=== PATIENT | male | born 1940 | race Caucasian/White ===

== ENCOUNTER 2016-08-05 07:33 | Inpatient (IN) ==
[2016-08-05] MEDS ORDERED: LACTATED RINGERS 1,000 ML IV ONE (07:45)
--- NOTE | 2016-08-05 07:53 | Emergency Department Note ---
Fall HPI - General Chief Complaint: Fall Stated Complaint: Fall, weakness Time Seen by Provider: 08/05/16 07:48 Source: patient, EMS Mode of arrival: EMS - History of Present Illness HPI Narrative: Patient got up to go the bathroom this morning said his legs gave out he fell down. He has no injury other than some bruises to his left hand and abrasion to his right knee. Did not hit his head. He says yesterday he is able to mow his yard. Complaint: fall Onset (ago): minute(s) Fall From: standing Fall Witnessed: no Place Fall Occurred: home Loss of Consciousness: none Prolonged Down Time?: no - Related Data Home Medications Medication Instructions Recorded Confirmed atenolol 50 mg tablet 50 mg PO BID tab 02/03/16 06/06/16 pravastatin 40 mg tablet 40 mg PO QHS 02/03/16 06/06/16 Allopurinol [Zylopriim] 300 mg PO BID tab 03/02/16 06/06/16 aspirin 325 mg tablet 325 mg PO QDAY 03/30/16 06/06/16 meloxicam 15 mg tablet 15 mg PO QDAY 03/30/16 06/06/16 triamcinolone acetonide 55 mcg 1 spray INTRANASAL .COMPLEX 03/30/16 06/06/16 nasal spray aerosol Previous Rx's Medication Instructions Recorded diphenhydramine 25 mg capsule 25 mg PO Q4H PRN #90 cap 03/02/16 gabapentin 300 mg capsule 300 mg PO BID #60 cap 06/06/16 olmesartan 40 mg tablet 40 mg PO QDAY #90 tab 06/06/16 CPAP Mask #1 each 07/14/16 Allergies Allergy/AdvReac Type Severity Reaction Status Date / Time lisinopril Allergy Unknown Swelling Verified 08/05/16 07:38 of face Review of Systems Constitutional: Denies: fever Eyes: Denies: eye pain ENT ED: Denies: ear pain, throat pain Cardiovascular: Denies: chest pain, palpitations Respiratory: Denies: cough, dyspnea Gastrointestinal: Denies: abdominal pain, nausea, vomiting Genitourinary: Denies: urgency Musculoskeletal: Denies: back pain Integumentary: Denies: rash Neurological: Reports: weakness (Generalized). Denies: headache Fall PMH - Past Medical History [facility] Narrative: Medical History (Last Updated 06/06/16 @ 15:16 by Olaf An DO) Morbid obesity (Chronic) GERD (gastroesophageal reflux disease) (Chronic) CAD (coronary artery disease) (Chronic) Heart attack (Chronic ~2001) Jaundice (Chronic ~1954) Hyperlipidemia (Chronic ~1999) Hypertension, essential (Chronic ~1997) History of tobacco use (Acute) Past Surgical History (Last Updated 03/30/16 @ 16:28 by Rosemary Diamond) H/O colonoscopy (Chronic ~2002) History of coronary artery bypass graft (Chronic) Hx of appendectomy (Chronic ~1949) Family History Family/Other Cancer Father Cancer HTN (hypertension) Family/Other Cancer Mother HTN (hypertension) Physical Exam - General Limitations: no limitations General appearance: alert, in no apparent distress - Head Head exam: atraumatic - Eye Eye exam: Present: normal appearance - ENT ENT exam: normal exam - Neck Neck exam: Present: normal inspection - Chest Chest inspection: Present: normal inspection - Respiratory Respiratory exam: Present: normal lung sounds bilaterally - Cardiovascular Cardiovascular exam: Present: regular rate, normal rhythm, normal heart sounds - Abdominal Exam Abdominal exam: Present: soft. Absent: distention, tenderness - Neurological Exam Neurological exam: Present: alert - Psychiatric Psychiatric exam: Present: normal affect, normal mood - Skin Skin exam: Present: warm, dry, intact Course Vital Signs Temperature 98.2 F 08/05/16 07:34 Pulse Rate 64 08/05/16 07:34 Respiratory Rate 33 H 08/05/16 07:34 Blood Pressure 107/53 08/05/16 07:34 Pulse Oximetry (%) 97 08/05/16 07:34 Temperature 98.2 F 08/05/16 07:34 Pulse Rate 64 08/05/16 07:34 Respiratory Rate 33 H 08/05/16 07:34 Blood Pressure 107/53 08/05/16 07:34 Pulse Oximetry (%) 97 08/05/16 07:34 Disposition Referrals: Olaf An DO [Primary Care Provider] -
--- NOTE | 2016-08-05 08:27 | XRay Report ---
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 Mediastinum and pulmonary vessels are normal. There is minor bibasilar atelectasis IMPRESSION: Moderate stable cardiomegaly Interpreted and Authenticated by: Olaf Montez 08/05/16
[2016-08-05 08:39] LABS: Basophils # (Auto) 0 K/mcL (0.0-0.3); Basophils % (Auto) 0 % (0.0-2.0); Eosinophils # (Auto) 0 K/mcL (0.0-0.7); Eosinophils % (Auto) 0 % (0.0-7.0); Granulocytes % (Auto) 91.7 % (38.0-78.0); Lymphocytes # (Auto) 0.6 K/mcL (1.5-4.8); Lymphocytes % (Auto) 2.4 % (15.5-49.0); Mean Cell Volume 97.8 fL (80.0-100.0); Mean Corpuscular HGB Conc 33.5 g/dL (31.0-36.0); Mean Corpuscular Hemoglobin 32.8 pg (26.0-34.0); Monocytes # (Auto) 1.4 K/mcL (0.1-0.9); Monocytes % (Auto) 5.9 % (1.0-12.0); Platelet Count 196 K/mcL (140-440); RBC 4.55 M/mcL (4.50-5.90); Red Cell Distribution Width 12.6 % (11.5-14.5)
[2016-08-05 08:55] LABS: ALT/SGPT 26 U/l (0-40); Albumin 3.9 gm/dL (3.2-5.2); Albumin/Globulin Ratio 1.1 (1.0-2.3); Alkaline Phosphatase 76 U/L (39-117); Blood Urea Nitrogen 30 mg/dl (8-23)
[2016-08-05] MEDS ORDERED: 0.9 % SODIUM CHLORIDE 1,000 ML IV ONE ×2 (09:33→10:31)
[2016-08-05] MEDS ORDERED: CLINDAMYCIN 600 MG in DEXTROSE 5% IN WATER 50 ML IV ONE (10:31)
--- NOTE | 2016-08-05 10:31 | Emergency Department Note ---
Fall HPI - General Chief Complaint: Fall Stated Complaint: Fall, weakness Time Seen by Provider: 08/05/16 07:48 Source: patient, EMS Mode of arrival: EMS Limitations: no limitations - History of Present Illness HPI Narrative: Received patient in checkout from Dr. brambila. Additional history below He will do long yesterday with a self-propelled mower and slept well. Approximately 4 AM he tried to get up and fell on the floor he was weak and could not walk and could not get up. He stayed on the floor, multiple times trying to get up for about 2 hours before help arrived and they brought him in. He has abrasions to both knees as well as a stubbed right big toe and black and blue right second toe. He denies fever chills nausea vomiting trouble breathing previous kidney problems Place Fall Occurred: home - Related Data Home Medications Medication Instructions Recorded Confirmed atenolol 50 mg tablet 50 mg PO BID tab 02/03/16 08/05/16 pravastatin 40 mg tablet 40 mg PO QHS 02/03/16 08/05/16 Allopurinol [Zylopriim] 300 mg PO BID tab 03/02/16 08/05/16 aspirin 325 mg tablet 325 mg PO QDAY 03/30/16 08/05/16 meloxicam 15 mg tablet 15 mg PO QDAY 03/30/16 08/05/16 triamcinolone acetonide 55 mcg 1 spray INTRANASAL .COMPLEX 03/30/16 08/05/16 nasal spray aerosol Previous Rx's Medication Instructions Recorded diphenhydramine 25 mg capsule 25 mg PO Q4H PRN #90 cap 03/02/16 gabapentin 300 mg capsule 300 mg PO BID #60 cap 06/06/16 olmesartan 40 mg tablet 40 mg PO QDAY #90 tab 06/06/16 CPAP Mask #1 each 07/14/16 Allergies Allergy/AdvReac Type Severity Reaction Status Date / Time lisinopril Allergy Unknown Swelling Verified 08/05/16 07:38 of face Review of Systems All systems ED: reviewed and negative except as stated. Constitutional: Denies: fever Eyes: Denies: eye pain ENT ED: Denies: ear pain, throat pain Cardiovascular: Denies: chest pain, palpitations Respiratory: Denies: cough, dyspnea Gastrointestinal: Denies: abdominal pain, nausea, vomiting Genitourinary: Denies: urgency Musculoskeletal: Denies: back pain Integumentary: Denies: rash Neurological: Reports: weakness (Generalized). Denies: headache Fall PMH - Past Medical History Medical history: Reports: coronary artery disease, GERD, hyperlipidemia, hypertension. Denies: diabetes - Social History smoking status: Former smoker Physical Exam Obese male no acute distress. Talking normally able to answer questions appropriately. Normocephalic atraumatic. Afebrile. Lungs are clear to auscultation bilaterally without wheezes rales rhonchi or respiratory distress. I examined bilateral lower extremities and he has got a 10 cm area of erythema bilateral knees along with a 2 x 1.5 cm abrasion on the right knee, and a 3 x 1.5 cm abrasion on the left knee. His right lower leg is also erythematous appears to be mild cellulitis. Bilateral ankles edematous +1 on the left +2 on the right. Right great toe has ecchymoses underneath the toenail. Right second toe is ecchymotic and erythematous actually down to the PIP joint neither toes-heart very tender. - General Limitations: no limitations General appearance: alert, in no apparent distress Course Vital Signs Temperature 98.2 F 08/05/16 07:34 Pulse Rate 64 08/05/16 07:34 Respiratory Rate 33 H 08/05/16 07:34 Blood Pressure 107/53 08/05/16 07:34 Pulse Oximetry (%) 97 08/05/16 07:34 Temperature 98.0 F 08/05/16 11:12 Pulse Rate 65 08/05/16 12:59 Respiratory Rate 27 H 08/05/16 12:59 Blood Pressure 143/63 08/05/16 12:33 Pulse Oximetry (%) 100 08/05/16 12:59 Fall - Lab Data Result diagrams: 08/05/16 08:05 08/05/16 08:05 Lab Results 08/05/16 08/05/16 08/05/16 Range/Units 08:05 08:05 08:05 WBC 23.0 H (4.5-11.0) K/mcL RBC 4.55 (4.50-5.90) M/mcL Hgb 14.9 (13.5-16.5) g/dL Hct 44.5 (41.0-55.0) % MCV 97.8 (80.0-100.0) fL MCH 32.8 (26.0-34.0) pg MCHC 33.5 (31.0-36.0) g/dL RDW 12.6 (11.5-14.5) % Plt Count 196 (140-440) K/mcL MPV 9.3 (7.4-10.4) fL Gran % 91.7 H (38.0-78.0) % Lymph % (Auto) 2.4 L (15.5-49.0) % Morrill % (Auto) 5.9 (1.0-12.0) % Eos % (Auto) 0 (0.0-7.0) % Baso % (Auto) 0 (0.0-2.0) % Gran # 21.1 H (1.8-8.0) K/mcL Lymph # (Auto) 0.6 L (1.5-4.8) K/mcL Morrill # (Auto) 1.4 H (0.1-0.9) K/mcL Eos # (Auto) 0 (0.0-0.7) K/mcL Baso # (Auto) 0 (0.0-0.3) K/mcL Differential Comment (()) VBG Lactic Acid (0.5-2.2) mmol/L Sodium 140 (133-145) mmol/L Potassium 4.0 (3.3-5.1) mmol/L Chloride 101 (96-108) mmol/L Carbon Dioxide 22 (22-30) mmol/L Anion Gap 17.0 H (8-16) BUN 30 H (8-23) mg/dl Creatinine 2.0 H (0.7-1.2) mg/dl GFR Calculation 32 Glucose 130 H (70-105) mg/dL Calcium 9.4 (8.6-10.4) mg/dl Total Bilirubin 1.8 H (0.0-1.0) mg/dL AST 59 H (0-37) U/l ALT 26 (0-40) U/l Alkaline Phosphatase 76 (39-117) U/L Total Creatine Kinase (24-195) IU/L Troponin T 0.02 (0-0.03) ng/ml Total Protein 7.5 (5.9-8.4) gm/dL Albumin 3.9 (3.2-5.2) gm/dL Globulin 3.6 (2.2-3.7) gm/dL Albumin/Globulin Ratio 1.1 (1.0-2.3) Urine Color Urine Appearance Urine pH (5.0-9.0) Ur Specific [place] (1.000-1.035) Urine Protein (NEG) mg/dL Urine Glucose (UA) (NEG) mg/dL Urine Ketones (NEG) mg/dL Urine Occult Blood (<0.03) mg/dL Urine Nitrate (NEG) Urine Bilirubin (NEG) mg/dL Urine Urobilinogen (NEG) mg/dL Ur Leukocyte Esterase (NEG) /uL Urine RBC (0-1) /hpf Urine WBC (0-4) /hpf Ur Squamous Epith Cells (0-4) /hpf Amorphous Crystals (0) /hpf Urine Bacteria (0) /hpf Hyaline Casts (0-2) /lpf Granular Casts (0) /lpf Urine Mucus (0) /hpf Ur Culture Indicated? 08/05/16 08/05/16 08/05/16 Range/Units 08:05 08:59 10:24 WBC (4.5-11.0) K/mcL RBC (4.50-5.90) M/mcL Hgb (13.5-16.5) g/dL Hct (41.0-55.0) % MCV (80.0-100.0) fL MCH (26.0-34.0) pg MCHC (31.0-36.0) g/dL RDW (11.5-14.5) % Plt Count (140-440) K/mcL MPV (7.4-10.4) fL Gran % (38.0-78.0) % Lymph % (Auto) (15.5-49.0) % Morrill % (Auto) (1.0-12.0) % Eos % (Auto) (0.0-7.0) % Baso % (Auto) (0.0-2.0) % Gran # (1.8-8.0) K/mcL Lymph # (Auto) (1.5-4.8) K/mcL [place]rill # (Auto) (0.1-0.9) K/mcL Eos # (Auto) (0.0-0.7) K/mcL Baso # (Auto) (0.0-0.3) K/mcL Differential Comment (()) VBG Lactic Acid 5.0 H* (0.5-2.2) mmol/L Sodium (133-145) mmol/L Potassium (3.3-5.1) mmol/L Chloride (96-108) mmol/L Carbon Dioxide (22-30) mmol/L Anion Gap (8-16) BUN (8-23) mg/dl Creatinine (0.7-1.2) mg/dl GFR Calculation Glucose (70-105) mg/dL Calcium (8.6-10.4) mg/dl Total Bilirubin (0.0-1.0) mg/dL AST (0-37) U/l ALT (0-40) U/l Alkaline Phosphatase (39-117) U/L Total Creatine Kinase 3603 H (24-195) IU/L Troponin T (0-0.03) ng/ml Total Protein (5.9-8.4) gm/dL Albumin (3.2-5.2) gm/dL Globulin (2.2-3.7) gm/dL Albumin/Globulin Ratio (1.0-2.3) Urine Color Yellow Urine Appearance Hazy Urine pH 5.0 (5.0-9.0) Ur Specific [place] 1.017 (1.000-1.035) Urine Protein 30 A (NEG) mg/dL Urine Glucose (UA) Negative (NEG) mg/dL Urine Ketones Neg (NEG) mg/dL Urine Occult Blood >=1.0 A (<0.03) mg/dL Urine Nitrate Neg (NEG) Urine Bilirubin Neg (NEG) mg/dL Urine Urobilinogen Neg (NEG) mg/dL Ur Leukocyte Esterase 25 A (NEG) /uL Urine RBC 1 (0-1) /hpf Urine WBC 6 H (0-4) /hpf Ur Squamous Epith Cells 0 (0-4) /hpf Amorphous Crystals Mod A (0) /hpf Urine Bacteria 0 (0) /hpf Hyaline Casts 22 H (0-2) /lpf Granular Casts 9 H (0) /lpf Urine Mucus Few (0) /hpf Ur Culture Indicated? Yes - Radiology Data Radiology results reviewed: Yes I reviewed the patient's radiology results. Chest x-ray shows cardiomegaly but no acute findings. Bladder scan shows 48 mL After 1.5 L of IVF - EKG Data EKG attestation: Yes I reviewed and interpreted this EKG. EKG results narrative: EKG shows first-degree AV block with a rate of 65 otherwise normal sinus rhythm with 1 PVC. Right bundle branch block and left posterior fascicular block also noted Disposition Clinical Impression: Cellulitis and abscess of right leg, Abrasion, Acute kidney injury, Dehydration Rhabdomyolysis Qualifiers: Rhabdomyolysis type: non-traumatic Qualified Code(s): M62.82 - Rhabdomyolysis Summary: Acute kidney injury likely from rhabdomyolysis-pravastatin likely contributes. Additionally has cellulitis right lower leg. Started clindamycin after cultures Discussed with Dr. Padilla hospitalist who agreed the patient needs to be admitted. Will be admitted to the ICU Disposition: Xfer As Inpt ([facility]) Condition: Critical Referrals: Olaf An DO [Primary Care Provider] -
[2016-08-05 11:14] LABS: Appearance,Urine HAZY; Bacteria,Urine 0 /hpf (0); Bilirubin,Urine NEG (NEG); Color,Urine YELLOW; Glucose,Urine (UA) NEGATIVE (NEG); Leukocyte Esterase,Urine 25 /uL (NEG); Mucus,Urine FEW /hpf (0); Nitrate,Urine NEG (NEG); Protein,Urine 30 mg/dL (NEG); Specific Gravity,Urine 1.017 (1.000-1.035); Urine Amorphous Crystals MOD /hpf (0); Urine Blood >=1.0 mg/dL (<0.03); Urine Granular Cast 9 /lpf (0); Urine Hyaline Cast 22 /lpf (0-2); Urine RBC 1 /hpf (0-1); Urine Squamous Epithelial Cell 0 /hpf (0-4); Urine WBC 6 /hpf (0-4); Urobilinogen,Urine NEG (NEG)
[2016-08-05 13:13] LABS: Creatine Kinase 3603 IU/L (24-195)
[2016-08-05] MEDS ORDERED: IPRATROPIUM/ALBUTEROL 3 ML AMPUL.NEB NEB ONE (14:07)
--- NOTE | 2016-08-05 14:55 | XRay Report ---
CLINICAL INFORMATION: Wheezing COMPARISON: 08/05/2016 FINDINGS: Mild cardiomegaly is unchanged. Mediastinum and pulmonary vessels are normal. Is minor bibasilar atelectasis. No effusions. Bones soft tissues normal IMPRESSION: Moderate cardiomegaly - stable. No acute disease Interpreted and Authenticated by: Olaf Montez 08/05/16
[2016-08-05] MEDS ORDERED: ONDANSETRON 4 MG/2 ML VIAL IV PRN (14:56)
[2016-08-05] MEDS ORDERED: NALOXONE HCL 0.4 MG/ML VIAL IV PRN (14:56)
[2016-08-05] MEDS ORDERED: VANCOMYCIN PER PHARMACY IV SCH (14:56)
[2016-08-05] MEDS ORDERED: HYDROmorphone 2 MG/ML SYRINGE IV PRN (14:56)
[2016-08-05] MEDS ORDERED: MAGNESIUM HYDROXIDE 30 ML ORAL.SUSP PO PRN (14:56)
[2016-08-05] MEDS ORDERED: SENNOSIDES 1 TABLET PO PRN (14:56)
[2016-08-05] MEDS ORDERED: FLEETS ADULT ENEMA PR PRN (14:56)
[2016-08-05] MEDS: 0.9 % SODIUM CHLORIDE 1,000 ML IV SCH (15:19)
--- NOTE | 2016-08-05 16:37 | Internal Med History&Physical ---
Medical - H&P: HPI Patient information: Note initiated : 08/05/16 at 4:27 pm Service Date, if different from initiated Date: [] Patient: Sharif David a 75 y/o M admitted on 08/05/16 for Fall, Weakness. Chief Complaint: [] History of present illness: Mr. David is a 75 year old M with h/o cad, neuropathy, presented to the ER after weakness in both his lower extremities since AM The patient reports he was ok yesterday, had mowed his lawn (self propelled) and may have not drank enough fluids, he was ok in the evening when he went to bed. He had one episode of chills and rigors at night. He woke up early in night and noted that he was weak and dizzy, when he tried to go to the bathroom. He woke up again around 4 and noted he did not have much strength in his legs, very tired and fatigued, unable to get up from the bathroom floor, he crawled his way to the bedroom, and scraped and injured his lower legs, he did not get better after few hrs and aft er the insistence of his grandson he called 911. The patient in the ER was noted to have elevated wbc count, high lactate, and renal failure, possible redness in the right leg, ua positive for blood and CK Rasied to 3600, admitted to the hospital for same. The patient denies any loss of bowel bladder function, no loss of sensation, only weakness bilaterally, able to move both legs. no trauma to the back. he is usually short of breath when he does more than usual activity at baseline , but denies any h/o COPD. Review of systems: CONSTITUTIONAL: No weight loss. Present subjective sensation fo fever, chills and rigors HEENT: Eyes: No visual loss, blurred vision, double vision or yellow sclerae. Ears, Nose, Throat: No hearing loss, sneezing, congestion, runny nose or sore throat. SKIN: No rash or itching. CARDIOVASCULAR: No chest pain, chest pressure or chest discomfort. No palpitations or edema. RESPIRATORY: present shortness of breath. GASTROINTESTINAL: No nausea, vomiting or diarrhea or constipation. No abdominal pain or blood in stools No Hannah. GENITOURINARY: Denies Burning on urination. Blood in urine, or foul smelling urine NEUROLOGICAL: No headache, dizziness, syncope, paralysis, tremors, numbness or tingling in the extremities. No change in bowel or bladder control. MUSCULOSKELETAL: No muscle, back pain, joint pain or stiffness. Weakness in both lower legs. HEMATOLOGIC: No bleeding or bruising. No enlarged nodes PSYCHIATRIC: No depression or anxiety. ENDOCRINOLOGIC: No reports of sweating, cold or heat intolerance. No polyuria or polydipsia. ALLERGIES: No hives, eczema or rhinitis. Skin: No rash, no jaundice, cyanosis or pallor. Medical - H&P: [facility] Medical history: Medical History (Last Updated 08/05/16 @ 11:28 by Hua Kramer MD) Morbid obesity (Chronic) GERD (gastroesophageal reflux disease) (Chronic) CAD (coronary artery disease) (Chronic) Heart attack (Chronic ~2001) Jaundice (Chronic ~1954) Hyperlipidemia (Chronic ~1999) Hypertension, essential (Chronic ~1997) History of tobacco use (Acute) Surgical history: Past Surgical History (Last Updated 03/30/16 @ 16:28 by Rosemary Diamond) H/O colonoscopy (Chronic ~2002) History of coronary artery bypass graft (Chronic) Hx of appendectomy (Chronic ~1949) Family history: reviewed and not pertinent Medical - H&P: Meds Home Medications Medication Instructions Recorded Confirmed Type atenolol 50 mg tablet 50 mg PO BID tab 02/03/16 08/05/16 History pravastatin 40 mg tablet 40 mg PO QHS 02/03/16 08/05/16 History Allopurinol [Zylopriim] 300 mg PO BID tab 03/02/16 08/05/16 History diphenhydramine 25 mg capsule 25 mg PO Q4H PRN #90 cap 03/02/16 08/05/16 Rx aspirin 325 mg tablet 325 mg PO QDAY 03/30/16 08/05/16 History meloxicam 15 mg tablet 15 mg PO QDAY 03/30/16 08/05/16 History triamcinolone acetonide 55 mcg 1 spray INTRANASAL .COMPLEX 03/30/16 08/05/16 History nasal spray aerosol gabapentin 300 mg capsule 300 mg PO BID #60 cap 06/06/16 08/05/16 Rx olmesartan 40 mg tablet 40 mg PO QDAY #90 tab 06/06/16 08/05/16 Rx CPAP Mask #1 each 07/14/16 Rx Allergies Allergy/AdvReac Type Severity Reaction Status Date / Time lisinopril Allergy Severe Swelling Verified 08/05/16 14:59 of face Medical - H&P: Exam - Constitutional Vitals: Temp Pulse Resp BP Pulse Ox 99.2 F H 75 30 H 149/105 95 08/05/16 15:00 08/05/16 15:00 08/05/16 15:00 08/05/16 15:00 08/05/16 15:00 Exam: GENERAL: The patient is a well-developed, well-nourished in mild distress. Is alert and oriented x3. at bedside VITAL SIGNS: Reviewed and as noted elsewhere. HEENT: Head is normocephalic and atraumatic. Extraocular muscles are intact. Pupils are equal, round, and reactive to light. Nares appeared normal. Mouth appears any without lesions. Mucous membranes are dry NECK: Normal to inspection, Supple, No lymphadenopathy or thyromegaly. LUNGS: Air entry equal on both sides, no wheezing, crackles or rhonchi noted. No accessory muscles of respiration, tachypenic breathing noted. HEART: Regular rate and rhythm normal, S1 and S2 heard, no Gallop, S3 or Rub Noted, No Gross murmur heard. ABDOMEN: Soft, nontender, and nondistended. Positive bowel sounds. No hepatosplenomegaly was noted. EXTREMITIES: No cyanosis, clubbing, rash, lesions or edema. NEUROLOGIC: Cranial nerves II through XII are grossly intact. Motor and Sensory System Grossly Intact, Stacia lower extremities, absent relfex antke and + knees (h /o neuropathy) , present sensation equal on both sides, present strength 4/5 in both legs, at hip, knee and ankle joints. SPine,: No spinal tenderness Right leg edema> left, erythematous and warm to touch, extending nearly the whole leg, area marked with pen. poor nails and dry skin noted. Stacia knee abrasions, skin exposed, right 2nd toe contusion. PSYCHIATRIC: Normal affect, Normal Mood. Appropriate Behavior. SKIN: No ulceration or wounds noted, No jaundice, No rash noted. Medical - H&P: Reslt - Labs CBC & Chem 7: 08/05/16 08:05 08/05/16 08:05 - EKG Data EKG comments: 08/05/16 16:41 sinus right axis right bundle block Medical - H&P: A/P - Narrative A/P Narrative: a/p Severe sepsis: Treat as per protocol, bp stable, IV fluds aggressive for now, repeat lactic acid. Treat underlying condition. check procalcitonin. blood cultuers drawn. Right lower leg cellulitis: Treat with IV vanco and zosyn for now, deescalate after cultures. HTN: BP stable, no hypotension, resume home meds and monitor. CAD: NO cp, chest tightness ,resume home meds. EKG does not show signs of acute ischemia Acute Kidney Injury: creat 2.0, pt making urine, place caruso, IV fluids Try to keep good urine output. , Acute Rhabdomyolysis" : due to activity and lying on floor for few hrs, IV fluids for now, monitor urine output. Stacia knee abrasions, right toe contusion: stacia bacitracin ointment, wound care DVT hep sq Diet Cardiac Full code Monitor in PCU status due to tachypena, renal failure, rhabdomyoliyss, sepsis with elevated lactic acid. Medical - H&P: Qual - VTE Deep Vein Thrombosis/Pulmonary Embolism Present on Admission: No Social History - Social History marital status: - Tobacco smoking status: Former smoker - Alcohol alcohol intake frequency: a few times a week - Substance use substance use type: does not use
[2016-08-05 16:39] LABS: Basophils # (Auto) 0 K/mcL (0.0-0.3); Basophils % (Auto) 0 % (0.0-2.0); Eosinophils # (Auto) 0 K/mcL (0.0-0.7); Eosinophils % (Auto) 0.1 % (0.0-7.0); Granulocytes % (Auto) 92.2 % (38.0-78.0); Lymphocytes # (Auto) 0.6 K/mcL (1.5-4.8); Lymphocytes % (Auto) 3.4 % (15.5-49.0); Mean Cell Volume 96.9 fL (80.0-100.0); Mean Corpuscular HGB Conc 34.3 g/dL (31.0-36.0); Mean Corpuscular Hemoglobin 33.2 pg (26.0-34.0); Monocytes # (Auto) 0.7 K/mcL (0.1-0.9); Monocytes % (Auto) 4.3 % (1.0-12.0); Platelet Count 172 K/mcL (140-440); RBC 4.23 M/mcL (4.50-5.90); Red Cell Distribution Width 12.7 % (11.5-14.5)
[2016-08-05] MEDS: PIPERACILLIN SODIUM/TAZOBACTAM 3.375 GM in DEXTROSE 5% IN WATER 50 ML IV SCH ×2 (16:49→22:15)
[2016-08-05 16:57] LABS: ALT/SGPT 51 U/l (0-40); Albumin 3.4 gm/dL (3.2-5.2); Alkaline Phosphatase 66 U/L (39-117); Bilirubin,Direct 0.3 mg/dL (0.0-0.3); Blood Urea Nitrogen 33 mg/dl (8-23); Gamma Glutamyl Transpeptidase 60 U/L (8-61); Uric Acid 13.6 mg/dL (2.5-8.0)
[2016-08-05] MEDS: VANCOMYCIN 1,500 MG in 0.9 % SODIUM CHLORIDE 500 ML IV SCH (17:07)
[2016-08-05] MEDS: ACETAMINOPHEN 325 MG TABLET PO PRN ×2 (17:49→20:43)
[2016-08-05] MEDS: IPRATROPIUM/ALBUTEROL 3 ML AMPUL.NEB NEB SCH ×3 (18:30→22:45)
[2016-08-05] MEDS: ALLOPURINOL 300 MG TABLET PO SCH ×2 (20:43→20:59)
[2016-08-05] MEDS: GABAPENTIN 300 MG CAPSULE PO SCH (20:45)
[2016-08-05] MEDS ORDERED: HEPARIN 5,000 UNIT/ML VIAL SQ SCH (21:00)
[2016-08-05] MEDS ORDERED: ATENOLOL 50 MG TABLET PO SCH (21:00)
[2016-08-05] MEDS: 0.9 % SODIUM CHLORIDE 10 ML SYRINGE IV SCH (22:15)
[2016-08-06] MEDS ORDERED: 0.9 % SODIUM CHLORIDE 1,000 ML IV ONE (00:09)
[2016-08-06] MEDS: ACETAMINOPHEN 325 MG TABLET PO PRN ×4 (00:59→19:54)
[2016-08-06] MEDS: 0.9 % SODIUM CHLORIDE 1,000 ML IV SCH ×7 (01:02→22:44)
[2016-08-06] MEDS: IPRATROPIUM/ALBUTEROL 3 ML AMPUL.NEB NEB SCH ×5 (02:47→19:16)
[2016-08-06] MEDS: PIPERACILLIN SODIUM/TAZOBACTAM 3.375 GM in DEXTROSE 5% IN WATER 50 ML IV SCH ×3 (05:47→22:43)
[2016-08-06] MEDS: 0.9 % SODIUM CHLORIDE 10 ML SYRINGE IV SCH ×3 (05:48→22:43)
[2016-08-06 07:38] LABS: Basophils # (Auto) 0.1 K/mcL (0.0-0.3); Basophils % (Auto) 0.5 % (0.0-2.0); Eosinophils # (Auto) 0.1 K/mcL (0.0-0.7); Eosinophils % (Auto) 0.6 % (0.0-7.0); Granulocytes % (Auto) 88.2 % (38.0-78.0); Lymphocytes % (Auto) 6.7 % (15.5-49.0); Mean Cell Volume 95.6 fL (80.0-100.0); Mean Corpuscular HGB Conc 33.9 g/dL (31.0-36.0); Mean Corpuscular Hemoglobin 32.4 pg (26.0-34.0); Monocytes # (Auto) 0.6 K/mcL (0.1-0.9); Platelet Count 107 K/mcL (140-440); RBC 4.31 M/mcL (4.50-5.90); Red Cell Distribution Width 12.8 % (11.5-14.5)
[2016-08-06 07:57] LABS: ALT/SGPT 64 U/l (0-40); Albumin 3.1 gm/dL (3.2-5.2); Alkaline Phosphatase 61 U/L (39-117); Bilirubin,Direct 0.5 mg/dL (0.0-0.3); Blood Urea Nitrogen 34 mg/dl (8-23); Gamma Glutamyl Transpeptidase 51 U/L (8-61); Magnesium 1.9 mg/dL (1.6-2.5); Uric Acid 10.9 mg/dL (2.5-8.0)
[2016-08-06 08:28] LABS: Creatine Kinase 14595 IU/L (24-195)
--- NOTE | 2016-08-06 09:24 | XRay Report ---
CLINICAL INFORMATION: Ankle edema COMPARISON: None. FINDINGS: There is very heavy ossification of the plantar tendon insertion on the calcaneus with calcific also seen in the plantar fascia. Minor calcification is seen Achilles tendon insertion. Tiny remote avulsion fracture off the tip of the lateral malleolus noted. Ankle mortise and talocalcaneal joints are unremarkable. There is marked diffuse soft tissue swelling in the ankle region IMPRESSION: Marked diffuse soft tissue swelling. Interpreted and Authenticated by: Olaf Montez 08/06/16
[2016-08-06] MEDS: GABAPENTIN 300 MG CAPSULE PO SCH ×2 (09:29→21:48)
[2016-08-06] MEDS: ASPIRIN 325 MG ENTERIC COATED TABLET PO SCH (09:29)
[2016-08-06] MEDS: ALLOPURINOL 300 MG TABLET PO SCH ×3 (09:30→21:48)
[2016-08-06] MEDS ORDERED: FUROSEMIDE 20 MG/2 ML VIAL IV ONE ×2 (09:46→22:06)
--- NOTE | 2016-08-06 12:42 | Internal Med Progress Note ---
Medical - PN: Subj Patient information: Note initiated : 08/06/16 at 12:36 pm Service Date, if different from initiated Date: [] Patient: Sharif David a 75 y/o M admitted on 08/05/16 for Fall, Weakness. Chief Complaint: [] Interval history: Mr. David is a 75 year old M with h/o cad, neuropathy, presented to the ER after weakness in both his lower extremities since AM The patient reports he was ok yesterday, had mowed his lawn (self propelled) and may have not drank enough fluids, he was ok in the evening when he went to bed. He had one episode of chills and rigors at night. He woke up early in night and noted that he was weak and dizzy, when he tried to go to the bathroom. He woke up again around 4 and noted he did not have much strength in his legs, very tired and fatigued, unable to get up from the bathroom floor, he crawled his way to the bedroom, and scraped and injured his lower legs, he did not get better after few hrs and aft er the insistence of his grandson he called 911. The patient in the ER was noted to have elevated wbc count, high lactate, and renal failure, possible redness in the right leg, ua positive for blood and CK Rasied to 3600, admitted to the hospital for same. The patient denies any loss of bowel bladder function, no loss of sensation, only weakness bilaterally, able to move both legs. no trauma to the back. he is usually short of breath when he does more than usual activity at baseline , but denies any h/o COPD. 08/06: Patient seen examined, no acute overnight events, he feels much better, he had temp of 103, overnight, his labs reviewed, lactic acid is now normal, but his CK climbed to 13K, Patient cellutlitis has remained stable. Will get x ray ankle. Pertinent ROS: Denies headache, dizziness Denies chest pain, palpitations Denies cough or shortness of breath Denies abdominal pain, nausea or vomiting. - Constitutional Vitals: Vital Signs Temp Pulse Resp BP Pulse Ox 101.8 F H 71 33 H 129/47 95 08/06/16 12:13 08/06/16 12:13 08/06/16 12:13 08/06/16 12:02 08/06/16 12:13 Period Temp Pulse Resp BP Sys/Romero Pulse Ox Last 24 Hr 98.0 F-103.5 F 47-88 16-36 89-156/33-117 88-100 Intake and Output 08/05/16 08/06/16 08/06/16 21:59 05:59 13:59 Intake Total 900 / 900 2410 / 2410 1273 / 1273 Output Total 391 / 391 475 / 475 1475 / 1475 Balance 509 / 509 1934 / 1934 Weight 284 lb 9.6 oz 284 lb 9.6 oz Patient Weight 08/07/16 05:59 Weight 284 lb 9.6 oz Intake & Output: Intake & Output 08/05/16 08/06/16 08/06/16 21:59 05:59 13:59 Intake Total 900 / 900 2410 / 2410 1273 / 1273 Output Total 391 / 391 475 / 475 1475 / 1475 Balance 509 / 509 1934 / 1934 Weight 284 lb 9.6 oz 284 lb 9.6 oz Intake: IV 550 / 550 2049 / 0 493 / 493 Sodium Chloride 0.9% , 1999 / 1999 443 / 443 000 ml @ 150 mls/hr IV . Q6H40M [facility] Rx#:[id number] Zosyn 3.375 gm In 50 / 50 50 / 50 50 / 50 Dextrose 5% in Water 50 ml @ 100 mls/hr IV Q8H [facility] Rx#:[id number] Vancomycin 1,500 mg In 500 / 500 Sodium Chloride 0.9% 500 ml @ 333.3 mls/hr IV Q24H [facility] Rx#:[id number] Oral 350 / 350 360 / 360 780 / 780 Output: Urine Catheter Amount 170 / 170 475 / 475 1475 / 1475 Void Amount 220 / 220 # of times incontinent of urine Other: Meal Breakfast Percent of Meal Consumed 100% # Bowel Movements 1 1 1 Exam: Constitutional; Afebrile, cooperative, alert, not in distress. Eyes- No icterus, , No periorbital swelling Ears- Ext ear normal, hearing normal to conversation. Neck- Midline trachea, supple Respiratory system: Air Entry equal on both sides, No crackles or wheezing, no rhonchi. CVS- Rate rhythm regular, S1,S2 heard, no gallop, no rub. Abdomen- Soft nontender abdomen, no organomegaly, no tenderness, no guarding or rigidity, SHIFT MGR- AOOx3, moving all extremities, no gross focal deficit noted. Medical - PN: Obj Da - Labs CBC & Chem 7: 08/06/16 06:23 08/06/16 06:23 Labs: Abnormal Lab Results 08/06/16 08/06/16 08/05/16 06:23 06:23 22:00 WBC 15.6 H RBC 4.31 L Plt Count 107 L Gran % 88.2 H Lymph % (Auto) 6.7 L Gran # 13.8 H Lymph # (Auto) 1.0 L VBG Lactic Acid 2.9 H Carbon Dioxide 20 L BUN 34 H Creatinine 1.9 H Glucose Uric Acid 10.9 H Calcium 7.9 L Phosphorus Total Bilirubin 2.2 H Direct Bilirubin 0.5 H AST 241 H ALT 64 H Lactate Dehydrogenase 323 H Total Creatine Kinase 75250 H Albumin 3.1 L 08/05/16 08/05/16 08/05/16 16:08 16:08 16:08 WBC 17.4 H RBC 4.23 L Plt Count Gran % 92.2 H Lymph % (Auto) 3.4 L Gran # 16.0 H Lymph # (Auto) 0.6 L VBG Lactic Acid 3.3 H Carbon Dioxide BUN 33 H Creatinine 2.1 H Glucose 130 H Uric Acid 13.6 H Calcium Phosphorus 2.1 L Total Bilirubin 2.2 H Direct Bilirubin AST 205 H ALT 51 H Lactate Dehydrogenase 340 H Total Creatine Kinase Albumin Meds: Medications Acetaminophen (Tylenol) 650 mg PO Q4-6HP PRN PRN Reason: PAIN/FEVER > 101 Last Admin: 08/06/16 09:29 Dose: 650 mg Albuterol/Ipratropium (Duoneb) 3 ml NEB Q4HRT [facility] Last Admin: 08/06/16 11:35 Dose: 3 ml Allopurinol (Zylopriim) 300 mg PO BID [facility] Last Admin: 08/06/16 09:43 Dose: Not Given Aspirin (Ecotrin) 325 mg PO DAILY [facility] Last Admin: 08/06/16 09:29 Dose: 325 mg Gabapentin (Neurontin) 300 mg PO BID [facility] Last Admin: 08/06/16 09:29 Dose: 300 mg Hydromorphone HCl (Dilaudid) 0.5 mg IV Q2HP PRN PRN Reason: Pain Piperacillin Sod/Tazobactam (Sod 3.375 gm/ Dextrose) 50 mls @ 100 mls/hr IV Q8H [facility] Last Infusion: 08/06/16 12:15 Dose: Infused Vancomycin HCl 1,500 mg/ (Sodium Chloride) 500 mls @ 333.3 mls/hr IV Q24H [facility] Last Infusion: 08/05/16 19:23 Dose: Infused Sodium Chloride (Sodium Chloride 0.9%) 1,000 mls @ 150 mls/hr IV .Q6H40M [facility] Stop: 08/08/16 00:30 Last Admin: 08/06/16 12:28 Dose: 150 mls/hr Magnesium Hydroxide (Milk Of Magnesia) 30 ml PO DAILYP PRN PRN Reason: Constipation Naloxone HCl (Narcan) 0.1 mg IV Q2MIN PRN PRN Reason: Opiate Reversal Ondansetron HCl (Zofran) 4 mg IV Q4-6HP PRN PRN Reason: Nausea And Vomiting Senna (Senokot) 1 tab PO HSP PRN PRN Reason: Constipation Sodium Biphosphate/Sodium Phosphate (Fleets Adult) 1 dose WI Q3-4DAYS PRN PRN Reason: Constipation Sodium Chloride (Saline Flush) 10 ml IV Q8 [facility] Last Admin: 08/06/16 05:48 Dose: 10 ml Vancomycin HCl (Vancomycin Per Pharmacy) 1 order IV [facility] [place] Medical - PN: A/P - Time Spent With Patient Total time spent is greater than 50% in coordination of care (as documented) at patient's floor/unit and/or counseling patient: - Narrative A/P Narrative: a/p Severe sepsis: improving, bp stable, lactic acid now back to normal. Right lower leg cellulitis: Treat with IV vanco and zosyn for now, cultures pending, clinically stable, X ray ankle shows soft tissue edema, no gas under surface. HTN: BP stable, no hypotension this am ( was hypotensive in AM) hold atenolol . CAD: NO cp, chest tightness ,resume home meds. EKG does not show signs of acute ischemia Acute Kidney Injury: creat is 1.9, due to sepsis and rhabdomyolysis. IV fluids for now, consider renal sonography is does not improve. Acute Rhabdomyolysis" : due to activity and lying on floor for few hrs, worsening, CK 13K now, Increase IV fluids to 150cc /hr, titrate to keep urine output > 100cc per hour, 20mg of lasix given this AM with good response. Ruben knee abrasions, right toe contusion: ruben bacitracin ointment, wound care DVT hep sq Diet Cardiac Full code Medical - PN: Qual - VTE Deep Vein Thrombosis/Pulmonary Embolism Present on Admission: No
[2016-08-06] MEDS: VANCOMYCIN 1,500 MG in 0.9 % SODIUM CHLORIDE 500 ML IV SCH (16:53)
[2016-08-06] MEDS ORDERED: ALBUTEROL SULFATE 2.5 MG/3 ML NEBULIZER NEB PRN (22:07)
[2016-08-07] MEDS: PIPERACILLIN SODIUM/TAZOBACTAM 3.375 GM in DEXTROSE 5% IN WATER 50 ML IV SCH ×3 (05:28→21:33)
[2016-08-07] MEDS: 0.9 % SODIUM CHLORIDE 10 ML SYRINGE IV SCH ×3 (05:29→21:33)
[2016-08-07 05:32] LABS: Basophils # (Auto) 0 K/mcL (0.0-0.3); Basophils % (Auto) 0.1 % (0.0-2.0); Eosinophils # (Auto) 0 K/mcL (0.0-0.7); Eosinophils % (Auto) 0.4 % (0.0-7.0); Granulocytes % (Auto) 82.9 % (38.0-78.0); Lymphocytes # (Auto) 1.4 K/mcL (1.5-4.8); Lymphocytes % (Auto) 11.6 % (15.5-49.0); Mean Cell Volume 97.9 fL (80.0-100.0); Mean Corpuscular HGB Conc 34.3 g/dL (31.0-36.0); Mean Corpuscular Hemoglobin 33.6 pg (26.0-34.0); Monocytes # (Auto) 0.6 K/mcL (0.1-0.9); Platelet Count 146 K/mcL (140-440); RBC 3.97 M/mcL (4.50-5.90); Red Cell Distribution Width 13.2 % (11.5-14.5)
[2016-08-07 05:53] LABS: ALT/SGPT 77 U/l (0-40); Albumin 2.8 gm/dL (3.2-5.2); Albumin/Globulin Ratio 0.7 (1.0-2.3); Alkaline Phosphatase 75 U/L (39-117); Bilirubin,Direct < 0.2 mg/dL (0.0-0.3); Blood Urea Nitrogen 25 mg/dl (8-23); Gamma Glutamyl Transpeptidase 52 U/L (8-61)
[2016-08-07 06:04] LABS: Creatine Kinase 10374 IU/L (24-195)
[2016-08-07] MEDS: CLOPIDOGREL 75 MG TABLET PO SCH (08:27)
[2016-08-07] MEDS: ASPIRIN 325 MG ENTERIC COATED TABLET PO SCH (08:27)
[2016-08-07] MEDS: GABAPENTIN 300 MG CAPSULE PO SCH ×2 (08:27→20:42)
[2016-08-07] MEDS: METOPROLOL TARTRATE 25 MG TABLET PO SCH ×2 (08:27→20:42)
[2016-08-07] MEDS: ALLOPURINOL 300 MG TABLET PO SCH (08:28)
--- NOTE | 2016-08-07 09:42 | Cat Scan Report ---
CLINICAL INFORMATION: Dyspnea and fever COMPARISON: None TECHNIQUE: 2.5 mm axial slices were obtained from the lung apices through the bases without intravenous contrast. Sagittal, coronal and axial reformatted images were processed and reviewed at bone, lung and soft tissue windows. 7 mm axial MIP images were also reconstructed. FINDINGS: Pulmonary parenchymal windows show small patchy left lower lobe infiltrate and small left pleural effusion. There is minor atelectasis in the right base with a small right pleural effusion. Moderate fat is seen within the left major fissure which is insignificant. Mediastinal windows show small pericardial effusion and mild cardiomegaly. Very heavy calcific atherosclerotic plaque seen in all of the coronary arteries. This would increase the probability for hemodynamically significant stenosis. The noncontrasted pulmonary arteries and thoracic aorta are normal in contour and caliber. There is no adenopathy in the mediastinal, hilar or axillary regions. The esophagus is normal. Thyroid is unremarkable. Images through the upper abdomen show a 19 mm faintly calcified stone within the gallbladder neck. The gallbladder is otherwise unremarkable - no evidence of inflammation. A 3.5 cm low-attenuation lesion in the anterior cortex of the mid left kidney is new from an 10/07/[address] A 18 mm satellite lesion is seen in the anterior perinephric fat. Bone windows show syndesmophytes bridging most of the thoracic vertebral bodies which is suggestive, although not diagnostic, of ankylosing spondylitis. There is moderate degenerative disc disease throughout the thoracic spine IMPRESSION: 1. Small patchy left lower lobe infiltrate with small left pleural effusion. Small right pleural effusion. 2. Extremely heavy calcific atherosclerotic plaque in all coronary arteries. This increases the probability minimally significant stenosis. Consider cardiology referral for stress testing. Small pericardial effusion 3. 19 mm solitary stone in the gallbladder neck. 4. 3.5 cm low-attenuation lesion in the anterior cortex mid left kidney with an 18 mm satellite lesion in the anterior perinephric fat. Renal cell carcinoma is possible. Suggest: CT IVP. If the patient cannot tolerate IV contrast, abdominal MRI could be performed instead Interpreted and Authenticated by: Olaf Montez 08/07/16
[2016-08-07] MEDS: LEVOFLOXACIN 500 MG/100 ML BAG IV SCH (09:52)
[2016-08-07] MEDS: 0.9 % SODIUM CHLORIDE 1,000 ML IV SCH ×2 (09:52→20:43)
[2016-08-07] MEDS ORDERED: METOPROLOL TARTRATE 25 MG TABLET PO ONE (11:05)
--- NOTE | 2016-08-07 11:13 | Internal Med Progress Note ---
Medical - PN: Subj Patient information: Note initiated : 08/07/16 at 11:13 am Service Date, if different from initiated Date: [] Patient: Sharif David 75 y/o M admitted on 08/05/16 for Fall, Weakness. Chief Complaint: [] Interval history: August 05, 2016: History of present illness: Mr. David is a 75 year old M with h/o cad, neuropathy, presented to the ER after weakness in both his lower extremities since AM The patient reports he was ok yesterday, had mowed his lawn (self propelled) and may have not drank enough fluids, he was ok in the evening when he went to bed. He had one episode of chills and rigors at night. He woke up early in night and noted that he was weak and dizzy, when he tried to go to the bathroom. He woke up again around 4 and noted he did not have much strength in his legs, very tired and fatigued, unable to get up from the bathroom floor, he crawled his way to the bedroom, and scraped and injured his lower legs, he did not get better after few hrs and aft er the insistence of his grandson he called 911. The patient in the ER was noted to have elevated wbc count, high lactate, and renal failure, possible redness in the right leg, ua positive for blood and CK Rasied to 3600, admitted to the hospital for same. The patient denies any loss of bowel bladder function, no loss of sensation, only weakness bilaterally, able to move both legs. no trauma to the back. he is usually short of breath when he does more than usual activity at baseline , but denies any h/o COPD. 08/06: Patient seen examined, no acute overnight events, he feels much better, he had temp of 103, overnight, his labs reviewed, lactic acid is now normal, but his CK climbed to 13K, Patient cellutlitis has remained stable. Will get x ray ankle. august 07: this patient was admitted after a fall, and reported fever and chills. He presented with acute rhabdomyolysis leukocytosis, lactic acidosis and apparent right lower extremity cellulitis, as well as bilateral knee abrasions. he has continued to have fever spikes, with a temperature as high as 104 last night. yesterday evening, he had an episode of diarrhea, and got out of bed to get cleaned up. His nurse noted he became extremely short of breath and tachypnea That time. The patient reported that he always has mild dyspnea with exertion, but that this was worse than usual. He denied any associated chest pain or palpitations, but his nurse noted that he had much more ectopy on his monitoring engineer, with frequent PVCs and occasional bigeminy, and some change and waveforms. Follow-up EKG showed sinus rhythm with frequent ectopy. Follow-up testing did show that he bumped his troponin to 0.06 and BNP was elevated at 1456. Blood gas showed moderate hypoxemia but no CO2 retention and normal pH. Chest CT was ordered last night, without contrast due to renal function, and shows a small left lower lobe infiltrate, and small bilateral pleural effusions , heavy coronary, as well as a small solitary stone in the gallbladder neck, and a 3.5 cm mass in the left kidney, worrisome for renal cell carcinoma. This morning, the patient says he is feeling better. He says shortness of breath is much improved. He denies any chest pain or palpitations. He has been having some bright red blood per rectum, and in addition to loose stools and notes he does have hemorrhoids. He does not feel feverish this morning, and denies chills. He denies chest pain or palpitations, abdominal pain, nausea or vomiting. Black catheter remains in place. He feels his right lower extremity is less red, less tender, less swollen today. - Constitutional Vitals: Vital Signs Temp Pulse Resp BP Pulse Ox 101.2 F H 50 L 22 130/67 96 08/07/16 08:32 08/07/16 02:00 08/07/16 08:02 08/07/16 08:02 08/07/16 08:32 Period Temp Pulse Resp BP Sys/Romero Pulse Ox Last 24 Hr 99.7 F-104.0 F 50-108 18-39 97-202/45-188 86-100 Intake and Output 08/06/16 08/07/16 08/07/16 21:59 05:59 13:59 Intake Total 1520 / 1520 600 / 600 1530 / 1530 Output Total 905 / 905 1465 / 1465 220 / 220 Balance 615 / 615 -865 / -865 1310 / 1310 Weight 293 lb 1.6 oz Intake & Output: Intake & Output 08/06/16 08/07/16 08/07/16 21:59 05:59 13:59 Intake Total 1520 / 1520 600 / 600 1530 / 1530 Output Total 905 / 905 1465 / 1465 220 / 220 Balance 615 / 615 -865 / -865 1310 / 1310 Weight 293 lb 1.6 oz Intake: IV 1000 / 1000 600 / 600 1050 / 1050 Sodium Chloride 0.9% 1, 1000 / 1000 1000 / 1000 000 ml @ 100 mls/hr IV . Q10H TOMMY Rx#:[id number] Zosyn 3.375 gm In 100 / 100 50 / 50 Dextrose 5% in Water 50 ml @ 100 mls/hr IV Q8H TOMMY Rx#:[id number] Vancomycin 1,500 mg In 500 / 500 Sodium Chloride 0.9% 500 ml @ 333.3 mls/hr IV Q24H TOMMY Rx#:[id number] Oral 520 / 520 480 / 480 Output: Urine Catheter Amount 905 / 905 1465 / 1465 220 / 220 Other: Meal Dinner Percent of Meal Consumed 100% # Bowel Movements 1 2 # of times incontinent of 1 Bowels on exam, he is sitting up on the side of his bed He is in good spirits. He is not in any distress. Neck shows no obvious JVD. Cardiac exam shows a fairly regular rhythm, but with frequent ectopy. No murmurs,rubs or gallops are noted Lungs: Breath sounds are generally decreased, but otherwise appear clear to auscultation, without rales, rhonchi, wheezes. Abdomen: Is markedly obese, but soft and nontender, with normal bowel sounds. Extremities: Lower extremities are moderately swollen,with the right side much worse than the left. His right leg is red from the ankle to about the knee, with swelling and tenderness but does appear to be receding from the inked margins. Neurologic:Neuro exam is grossly nonfocal. Patient is alert and oriented, and cooperative. Skin: Other than the right leg cellulitis, he has bilateral knee Scabs, which appear to be healing. Medical - PN: Obj Da - Labs CBC & Chem 7: 08/07/16 04:08 08/07/16 04:08 Labs: Abnormal Lab Results 08/07/16 08/07/16 08/07/16 04:08 04:08 03:08 WBC 11.9 H RBC 3.97 L Hgb 13.3 L Hct 38.9 L Plt Count Gran % 82.9 H Lymph % (Auto) 11.6 L Gran # 9.9 H Lymph # (Auto) 1.4 L VBG Lactic Acid Carbon Dioxide 21 L BUN 25 H Creatinine 1.7 H Glucose Uric Acid Calcium 8.2 L Phosphorus Total Bilirubin 1.3 H Direct Bilirubin AST 210 H ALT 77 H Lactate Dehydrogenase 481 H Total Creatine Kinase 99687 H Troponin T 0.10 H* NT-Pro-B Natriuret Pep Albumin 2.8 L Globulin 3.9 H Albumin/Globulin Ratio 0.7 L Triglycerides 223 H 08/06/16 08/06/16 08/06/16 20:58 20:58 06:23 WBC RBC Hgb Hct Plt Count Gran % Lymph % (Auto) Gran # Lymph # (Auto) VBG Lactic Acid Carbon Dioxide 20 L BUN 34 H Creatinine 1.9 H Glucose Uric Acid 10.9 H Calcium 7.9 L Phosphorus Total Bilirubin 2.2 H Direct Bilirubin 0.5 H AST 241 H ALT 64 H Lactate Dehydrogenase 323 H Total Creatine Kinase 34839 H Troponin T 0.06 H* NT-Pro-B Natriuret Pep 1456.0 H Albumin 3.1 L Globulin Albumin/Globulin Ratio Triglycerides 08/06/16 08/05/16 08/05/16 06:23 22:00 16:08 WBC 15.6 H RBC 4.31 L Hgb Hct Plt Count 107 L Gran % 88.2 H Lymph % (Auto) 6.7 L Gran # 13.8 H Lymph # (Auto) 1.0 L VBG Lactic Acid 2.9 H 3.3 H Carbon Dioxide BUN Creatinine Glucose Uric Acid Calcium Phosphorus Total Bilirubin Direct Bilirubin AST ALT Lactate Dehydrogenase Total Creatine Kinase Troponin T NT-Pro-B Natriuret Pep Albumin Globulin Albumin/Globulin Ratio Triglycerides 08/05/16 08/05/16 16:08 16:08 WBC 17.4 H RBC 4.23 L Hgb Hct Plt Count Gran % 92.2 H Lymph % (Auto) 3.4 L Gran # 16.0 H Lymph # (Auto) 0.6 L VBG Lactic Acid Carbon Dioxide BUN 33 H Creatinine 2.1 H Glucose 130 H Uric Acid 13.6 H Calcium Phosphorus 2.1 L Total Bilirubin 2.2 H Direct Bilirubin AST 205 H ALT 51 H Lactate Dehydrogenase 340 H Total Creatine Kinase Troponin T NT-Pro-B Natriuret Pep Albumin Globulin Albumin/Globulin Ratio Triglycerides august 07: echocardiogram was done this morning. Preliminary report shows mild four- chamber enlargement. Left ventricular ejection fraction 50%. -eKG from this morning shows normal sinus rhythm at a rate of 80, with frequent PVCs. August 06: -C. difficile screen is negative. -ABG on a 4.5 L O2 mask: PH 7.44 PCO2 27, PO2 70, bicarbonate 18, O2 saturation 94% -CT of the chest: Shows a small patchy left lower lobe infiltrate with small bilateral pleural effusions. Extremely heavy atherosclerotic calcification of all coronary arteries. Small pericardial effusion. 19 mm solitary stone in the gallbladder neck. 3.5 cm low attenuation lesion in the mid left kidney with an 18 mm satellite lesion in the perinephric fat. August 05: -Urine culture is negative. -blood cultures are negative so far. August 04: MRSA screen is negative. Meds: Medications Acetaminophen (Tylenol) 650 mg PO Q4-6HP PRN PRN Reason: PAIN/FEVER > 101 Last Admin: 08/06/16 19:54 Dose: 650 mg Albuterol Sulfate (Ventolin) 2.5 mg NEB Q2HP PRN PRN Reason: Shortness Of Breath Allopurinol (Zylopriim) 300 mg PO DAILY [facility] Last Admin: 08/07/16 08:28 Dose: Not Given Aspirin (Ecotrin) 325 mg PO DAILY [facility] Last Admin: 08/07/16 08:27 Dose: 325 mg Clopidogrel Bisulfate (Plavix) 75 mg PO DAILY [facility] Last Admin: 08/07/16 08:27 Dose: 75 mg Gabapentin (Neurontin) 300 mg PO BID [facility] Last Admin: 08/07/16 08:27 Dose: 300 mg Hydromorphone HCl (Dilaudid) 0.5 mg IV Q2HP PRN PRN Reason: Pain Piperacillin Sod/Tazobactam (Sod 3.375 gm/ Dextrose) 50 mls @ 100 mls/hr IV Q8H [facility] Last Infusion: 08/07/16 08:17 Dose: Infused Vancomycin HCl 1,500 mg/ (Sodium Chloride) 500 mls @ 333.3 mls/hr IV Q24H [facility] Last Infusion: 08/06/16 22:39 Dose: Infused Sodium Chloride (Sodium Chloride 0.9%) 1,000 mls @ 100 mls/hr IV .Q10H [facility] Stop: 08/09/16 10:07 Last Admin: 08/07/16 09:52 Dose: 100 mls/hr Levofloxacin (Levaquin) 500 mg in 100 mls @ 100 mls/hr IV Q24H [facility] Last Admin: 08/07/16 09:52 Dose: 100 mls/hr Magnesium Hydroxide (Milk Of Magnesia) 30 ml PO DAILYP PRN PRN Reason: Constipation Metoprolol Tartrate (Lopressor) 25 mg PO BID [facility] Last Admin: 08/07/16 08:27 Dose: 25 mg Naloxone HCl (Narcan) 0.1 mg IV Q2MIN PRN PRN Reason: Opiate Reversal Ondansetron HCl (Zofran) 4 mg IV Q4-6HP PRN PRN Reason: Nausea And Vomiting Senna (Senokot) 1 tab PO HSP PRN PRN Reason: Constipation Sodium Chloride (Saline Flush) 10 ml IV Q8 [facility] Last Admin: 08/07/16 05:29 Dose: 10 ml Vancomycin HCl (Vancomycin Per Pharmacy) 1 order IV UD [facility] Medical - PN: A/P - Time Spent With Patient Total time spent is greater than 50% in coordination of care (as documented) at patient's floor/unit and/or counseling patient: Greater than 35 minutes - Narrative A/P Narrative: #1.Severe sepsis/infectious disease. - improving, bp stable, lactic acid now back to normal. however, the patient continues to spike fevers. he has an apparent right lower extremity cellulitis, and possible early pneumonia. It is unclear however, why he continues to spike fevers. he continues on Zosyn and vancomycin. blood cultures are negative so far. he does not appear to have a UTI. He does have cholelithiasis,but CT did not suggest cholecystitis. I have added Levaquin for better gram-negative coverage today. -He does have a renal mass,which could be malignant. This could also be a source of fever. He has a small pericardial effusion, so we will need to keep that in mind as a possible source. -Right lower leg cellulitis: X ray ankle shows soft tissue edema, no gas under surface. #2. Cardiac. -This patient has known coronary disease, and has had dyspnea over the last 1-2 days. Troponin was mildly positive, but echocardiogram, by verbal report, is reassuring. EKG does not show obvious ischemia. Vital signs have otherwise been stable today.We will continue with aspirin, and I did add Plavix last night. Also, it appears he was taking atenolol at home so I will add Lopressor, and up-titrate as able. I am awaiting a third troponin and we'll try to touch base with cardiology after I receive that. Both troponin and BNP may be more elevated than they otherwise would be, due to renal dysfunction. -BNP was elevated last night, so patient was given IV Lasix, regarding dyspnea. LVEF on today's echo looks fine. -he does take meloxicam at home, and I would avoid this in this patient with known coronary disease. #3.HTN: -BP stable- apparently atenolol was held on admission, for hypotension.continue to monitor. Lopressor was added in view of likely underlying ischemia. #4.renal. -Acute Kidney Injury - - due to sepsis and rhabdomyolysis. creatinine is gradually improving. Baseline is 1.2. B UN did increase slightly today, after receiving IV Lasix last night. he continues to have good urine output. CPK is also trending down. -CT scan shows a renal mass. The patient would not likely tolerate IV dye at this time. We will order an MRI to investigate further. #5.Ruben knee abrasions, right toe contusion: ruben bacitracin ointment, wound care #6.DVT hep sq #7.Full code #8. Pulmonary. -the patient has required oxygen at times, but this is improved today. He has been receiving aggressive IV fluids, but did seem to improve after IV Lasix last night. Hypoxemia is also likely due to significant obesity. Patient also has obstructive sleep apnea. PE is still in the differential, but he cannot tolerate a CT angiogram at this time. Continue to monitor. #9. GI. Mildly elevated LFTs. These are somewhat improved today. -patient has had bright red blood per rectum, as well as diarrhea. C. difficile screen was negative. He may be having some antibiotic associated diarrhea. He also has known hemorrhoids. Continue to monitor hemoglobin. He reports he had a colonoscopy about 12 years ago that was normal. so far today, this visit has taken approximately 45 minutes, including overnight issues, review of test results, interview and exam of the patient, discussion with nursing staff and his . Medical - PN: Qual - VTE Deep Vein Thrombosis/Pulmonary Embolism Present on Admission: No
[2016-08-07] MEDS ORDERED: FUROSEMIDE 20 MG/2 ML VIAL IV PRN (12:53)
[2016-08-07] MEDS: VANCOMYCIN 1,500 MG in 0.9 % SODIUM CHLORIDE 500 ML IV SCH (15:03)
[2016-08-07] MEDS: ACETAMINOPHEN 325 MG TABLET PO PRN ×2 (15:18→23:02)
[2016-08-08 05:27] LABS: Basophils # (Auto) 0 K/mcL (0.0-0.3); Basophils % (Auto) 0.1 % (0.0-2.0); Eosinophils # (Auto) 0.1 K/mcL (0.0-0.7); Eosinophils % (Auto) 0.9 % (0.0-7.0); Granulocytes % (Auto) 85.4 % (38.0-78.0); Lymphocytes % (Auto) 8.7 % (15.5-49.0); Mean Cell Volume 97.1 fL (80.0-100.0); Mean Corpuscular HGB Conc 34.7 g/dL (31.0-36.0); Mean Corpuscular Hemoglobin 33.7 pg (26.0-34.0); Monocytes # (Auto) 0.6 K/mcL (0.1-0.9); Monocytes % (Auto) 4.9 % (1.0-12.0); Platelet Count 144 K/mcL (140-440); RBC 3.69 M/mcL (4.50-5.90); Red Cell Distribution Width 13.3 % (11.5-14.5)
[2016-08-08] MEDS: PIPERACILLIN SODIUM/TAZOBACTAM 3.375 GM in DEXTROSE 5% IN WATER 50 ML IV SCH ×3 (05:47→21:18)
[2016-08-08] MEDS: 0.9 % SODIUM CHLORIDE 10 ML SYRINGE IV SCH ×3 (05:48→21:18)
[2016-08-08 05:52] LABS: ALT/SGPT 72 U/l (0-40); Albumin 2.8 gm/dL (3.2-5.2); Albumin/Globulin Ratio 0.8 (1.0-2.3); Alkaline Phosphatase 95 U/L (39-117); Bilirubin,Direct 0.2 mg/dL (0.0-0.3); Blood Urea Nitrogen 17 mg/dl (8-23); Gamma Glutamyl Transpeptidase 60 U/L (8-61); Magnesium 1.8 mg/dL (1.6-2.5); Uric Acid 5.7 mg/dL (2.5-8.0)
[2016-08-08 06:04] LABS: Creatine Kinase 5285 IU/L (24-195)
--- NOTE | 2016-08-08 07:28 | Echocardiogram Report ---
ECHOCARDIOGRAM: 2-D and M-mode echocardiography with cardiac Doppler and color flow imaging were performed with a [email or web address] A[employer] MX. Indication is effort dyspnea. All four chambers appeared mildly enlarged commensurate with BSA 2.5 meters squared. LV wall thickness appeared high normal. Various patterns of dyssynergy were seen in conjunction with premature ectopics, though overall LV systolic performance appeared borderline depressed. Estimated ejection fraction is 50%. Aortic root diameter appeared normal. The root appeared sclerotic. The aortic valve appeared trileaflet and normal. Maximal instantaneous aortic outflow systolic velocity was borderline elevated at 2.0 meters per second. There was no evidence for aortic regurgitation. The mitral and tricuspid valves appeared unremarkable. Doppler interrogation of LV inflow disclosed prolonged early diastolic deceleration time and ''a'' wave dominance indicating delayed LV relaxation. Mitral regurgitation, probably mild (1+), was demonstrated. The pulmonic valve was not visualized. Pulmonary artery acceleration time appeared normal. There was no evidence for pulmonic stenosis or pulmonic regurgitation. There was no evidence for tricuspid regurgitation. No intracardiac shunting was appreciated. There was no evidence for pericardial effusion. The IVC was of normal diameter and showed normal respiratory variation. Sinus rhythm with PACs, PVCs, and intermittent IVCD was present. CONCLUSION:Aortic root sclerosis. Mild four chamber enlargement commensurate with BSA 2.5 m2/borderline reduced LV systolic performance. Mitral regurgitation, probably mild (1+). (See accompanying M-mode and Doppler reports for quantitation.) ECHOCARDIOGRAPHY M-MODE CALCULATIONS: HT: 72'' WT: 293 BSA: 2.51 m2 NORMALS AORTA: AORTIC ROOT 3.3 2.0-3.7 cm LEFT ATRIUM 3.9 1.9-4.0 cm MITRAL VALVE: EXCURSION 2.2 1.9-2.7 cm EPSS 0.1 <0.5 cm LT VENTRICLE: LVID (ED) 5.3 3.5-5.7 cm LVID (ES) 3.9 SEPTAL THICKNESS 1.1 0.6-1.1 cm SEPTAL EXCURSION 0.3 0.3-0.8 cm LVPW THICKNESS 1.1 0.6-1.1 cm LVPW EXCURSION 0.9 0.9-1.4 cm MINOR AXIS FS 2.6 25%-40% RT VENTRICLE: RVID (ED) -- 0.9-2.6 cm(up to 3cm if LLD) QUALITATIVE DOPPLER FLOW STUDIES MITRAL VALVE MR, probably mild (1+) AORTIC VALVE -- TRICUSPID VALVE -- PULMONIC VALVE -- QUANTITATIVE DOPPLER FLOW STUDIES SAMPLE SITES VELOCITIES PEAK PRESSURE VALVE AREA and/or VALVE WINDOW (PEAK,M/SEC) DROP (GRADIENT) PRESSURE HALF-TIME MV (Diastole) 0.95 1.0 -- -- MV (Systole) 6.0 -- -- AO (Diastole) -- -- -- AO (Systole) 2.0 -- -- TV (Systole) -- -- -- PV (Systole) 1.4 -- -- PV (Diastole) -- LWG:teresa Job ID: [id number] Doc ID: [id number] Mango Pagan MD
[2016-08-08] MEDS: 0.9 % SODIUM CHLORIDE 1,000 ML IV SCH ×2 (07:44→18:39)
[2016-08-08] MEDS: GABAPENTIN 300 MG CAPSULE PO SCH ×2 (09:45→20:35)
[2016-08-08] MEDS: METOPROLOL TARTRATE 25 MG TABLET PO SCH ×2 (09:45→20:34)
[2016-08-08] MEDS: ALLOPURINOL 300 MG TABLET PO SCH (09:45)
[2016-08-08] MEDS: ASPIRIN 325 MG ENTERIC COATED TABLET PO SCH (09:45)
[2016-08-08] MEDS: CLOPIDOGREL 75 MG TABLET PO SCH (09:45)
[2016-08-08] MEDS: LEVOFLOXACIN 500 MG/100 ML BAG IV SCH (09:50)
[2016-08-08] MEDS ORDERED: LORazepam 2 MG/ML VIAL IV ONE (10:53)
[2016-08-08] MEDS ORDERED: LORazepam 2 MG/ML VIAL ONE (10:55)
--- NOTE | 2016-08-08 12:08 | Ultrasound Report ---
CLINICAL INFORMATION: Leg pain and swelling COMPARISON: None. FINDINGS: The entire deep venous system including the common femoral, superficial femoral, and popliteal veins easily compressible and show normal venous blood flow on color and spectral Doppler. The trifurcation calf veins are difficult to visualize but show no gross abnormality. No evidence of thrombus IMPRESSION: Negative exam - no evidence of deep vein thrombosis. Interpreted and Authenticated by: Olaf Montez 08/08/16
--- NOTE | 2016-08-08 12:16 | Internal Med Progress Note ---
Medical - PN: Subj Patient information: Note initiated : 08/08/16 at 12:16 pm Patient: Sharif David a 75 y/o M admitted on 08/05/16 for Cellulitis&Abscess of Rt Leg/Abrasion/Dehydration. Interval history: August 05, 2016: History of present illness: Mr. David is a 75 year old M with h/o cad, neuropathy, presented to the ER after weakness in both his lower extremities since AM The patient reports he was ok yesterday, had mowed his lawn (self propelled) and may have not drank enough fluids, he was ok in the evening when he went to bed. He had one episode of chills and rigors at night. He woke up early in night and noted that he was weak and dizzy, when he tried to go to the bathroom. He woke up again around 4 and noted he did not have much strength in his legs, very tired and fatigued, unable to get up from the bathroom floor, he crawled his way to the bedroom, and scraped and injured his lower legs, he did not get better after few hrs and aft er the insistence of his grandson he called 911. The patient in the ER was noted to have elevated wbc count, high lactate, and renal failure, possible redness in the right leg, ua positive for blood and CK Rasied to 3600, admitted to the hospital for same. The patient denies any loss of bowel bladder function, no loss of sensation, only weakness bilaterally, able to move both legs. no trauma to the back. he is usually short of breath when he does more than usual activity at baseline , but denies any h/o COPD. 08/06: Patient seen examined, no acute overnight events, he feels much better, he had temp of 103, overnight, his labs reviewed, lactic acid is now normal, but his CK climbed to 13K, Patient cellutlitis has remained stable. Will get x ray ankle. august 07: this patient was admitted after a fall, and reported fever and chills. He presented with acute rhabdomyolysis leukocytosis, lactic acidosis and apparent right lower extremity cellulitis, as well as bilateral knee abrasions. he has continued to have fever spikes, with a temperature as high as 104 last night. yesterday evening, he had an episode of diarrhea, and got out of bed to get cleaned up. His nurse noted he became extremely short of breath and tachypnea That time. The patient reported that he always has mild dyspnea with exertion, but that this was worse than usual. He denied any associated chest pain or palpitations, but his nurse noted that he had much more ectopy on his ekg monitor, with frequent PVCs and occasional bigeminy, and some change and waveforms. Follow-up EKG showed sinus rhythm with frequent ectopy. Follow-up testing did show that he bumped his troponin to 0.06 and BNP was elevated at 1456. Blood gas showed moderate hypoxemia but no CO2 retention and normal pH. Chest CT was ordered last night, without contrast due to renal function, and shows a small left lower lobe infiltrate, and small bilateral pleural effusions , heavy coronary, as well as a small solitary stone in the gallbladder neck, and a 3.5 cm mass in the left kidney, worrisome for renal cell carcinoma. This morning, the patient says he is feeling better. He says shortness of breath is much improved. He denies any chest pain or palpitations. He has been having some bright red blood per rectum, and in addition to loose stools and notes he does have hemorrhoids. He does not feel feverish this morning, and denies chills. He denies chest pain or palpitations, abdominal pain, nausea or vomiting. Black catheter remains in place. He feels his right lower extremity is less red, less tender, less swollen today. August 08: today, the patient says he is feeling better. However this morning he started to have abdominal discomfort.he also had mild nausea. He was to have an MRI, so the nurse pulled his Black catheter with a temperature probe, out. She noted the end to be very crusted over and rather sharp. The patient then developed gross hematuria. Initially his abdominal discomfort improved, then it recurred then he passed more blood clots, and then the pain resolved again. he notes he is no longer having fever or chills. he denies sore throator cough, chest pain or palpitations. His dyspnea with exertion and seems quite a bit improved. He denies vomiting, diarrhea, constipation. - Constitutional Vitals: Vital Signs Temp Pulse Resp BP Pulse Ox 100.6 F H 50 L 16 161/70 97 08/08/16 09:24 08/07/16 02:00 08/08/16 04:02 08/08/16 09:24 08/08/16 04:02 Period Temp Pulse Resp BP Sys/Romero Pulse Ox Last 24 Hr 100.6 F-102.0 F 16-22 114-183/49-111 87-99 Intake and Output 08/07/16 08/08/16 08/08/16 21:59 05:59 13:59 Intake Total 1690 / 1690 170 / 170 3550 / 3550 Output Total 370 / 370 650 / 650 233 / 233 Balance 1320 / 1320 -480 / -480 3317 / 3317 Weight 302 lb 295 lb Intake & Output: Intake & Output 08/07/16 08/08/16 08/08/16 21:59 05:59 13:59 Intake Total 1690 / 1690 170 / 170 3550 / 3550 Output Total 370 / 370 650 / 650 233 / 233 Balance 1320 / 1320 -480 / -480 3317 / 3317 Weight 302 lb 295 lb Intake: IV 1150 / 1150 50 / 50 3550 / 3550 Sodium Chloride 0.9% 1, 1000 / 1000 1000 / 1000 000 ml @ 100 mls/hr IV . Q10H [facility] Rx#:[id number] Zosyn 3.375 gm In 50 / 50 50 / 50 50 / 50 Dextrose 5% in Water 50 ml @ 100 mls/hr IV Q8H [facility] Rx#:[id number] Vancomycin 1,500 mg In 500 / 500 Sodium Chloride 0.9% 500 ml @ 333.3 mls/hr IV Q24H [facility] Rx#:[id number] Oral 540 / 540 120 / 120 Output: Urine Catheter Amount 370 / 370 650 / 650 30 / 30 Void Amount 200 / 200 # of times incontinent of 3 / 3 urine Other: Meal Breakfast Percent of Meal Consumed Refused # Voids 2 # Bowel Movements 1 1 3 n exam, he is lying in bed. He is smiling. neck shows no obvious JVD or lymphadenopathy. Cardiac exam shows regular rhythm, but with frequent ectopy. Lungs: Breath sounds are generally decreased, but otherwise appear clear to auscultation, without rales, rhonchi, wheezes. Abdomen: Is markedly obese, but soft and nontender, with normal bowel sounds. Extremities: Lower extremities are moderately swollen,with the right side much worse than the left. His right leg is red from the ankle to about the knee, with swelling and tenderness which are more intense today. Swelling seems worse, and leg generally looks more swollen than yesterday. neurologic exam is grossly nonfocal. Medical - PN: Obj Da - Labs CBC & Chem 7: 08/08/16 03:30 08/08/16 03:30 Labs: Abnormal Lab Results 08/08/16 08/08/16 08/07/16 03:30 03:30 13:45 WBC 11.4 H RBC 3.69 L Hgb 12.4 L Hct 35.8 L Plt Count Gran % 85.4 H Lymph % (Auto) 8.7 L Gran # 9.8 H Lymph # (Auto) 1.0 L VBG Lactic Acid Carbon Dioxide 20 L BUN Creatinine 1.4 H Glucose Uric Acid Calcium 8.0 L Phosphorus 1.9 L Total Bilirubin 1.1 H Direct Bilirubin AST 156 H ALT 72 H Lactate Dehydrogenase 334 H Total Creatine Kinase 5285 H Troponin T 0.06 H* NT-Pro-B Natriuret Pep Albumin 2.8 L Globulin Albumin/Globulin Ratio 0.8 L Triglycerides 08/07/16 08/07/16 08/07/16 04:08 04:08 03:08 WBC 11.9 H RBC 3.97 L Hgb 13.3 L Hct 38.9 L Plt Count Gran % 82.9 H Lymph % (Auto) 11.6 L Gran # 9.9 H Lymph # (Auto) 1.4 L VBG Lactic Acid Carbon Dioxide 21 L BUN 25 H Creatinine 1.7 H Glucose Uric Acid Calcium 8.2 L Phosphorus Total Bilirubin 1.3 H Direct Bilirubin AST 210 H ALT 77 H Lactate Dehydrogenase 481 H Total Creatine Kinase 87355 H Troponin T 0.10 H* NT-Pro-B Natriuret Pep Albumin 2.8 L Globulin 3.9 H Albumin/Globulin Ratio 0.7 L Triglycerides 223 H 08/06/16 08/06/16 08/06/16 20:58 20:58 06:23 WBC RBC Hgb Hct Plt Count Gran % Lymph % (Auto) Gran # Lymph # (Auto) VBG Lactic Acid Carbon Dioxide 20 L BUN 34 H Creatinine 1.9 H Glucose Uric Acid 10.9 H Calcium 7.9 L Phosphorus Total Bilirubin 2.2 H Direct Bilirubin 0.5 H AST 241 H ALT 64 H Lactate Dehydrogenase 323 H Total Creatine Kinase 82711 H Troponin T 0.06 H* NT-Pro-B Natriuret Pep 1456.0 H Albumin 3.1 L Globulin Albumin/Globulin Ratio Triglycerides 08/06/16 08/05/16 08/05/16 06:23 22:00 16:08 WBC 15.6 H RBC 4.31 L Hgb Hct Plt Count 107 L Gran % 88.2 H Lymph % (Auto) 6.7 L Gran # 13.8 H Lymph # (Auto) 1.0 L VBG Lactic Acid 2.9 H 3.3 H Carbon Dioxide BUN Creatinine Glucose Uric Acid Calcium Phosphorus Total Bilirubin Direct Bilirubin AST ALT Lactate Dehydrogenase Total Creatine Kinase Troponin T NT-Pro-B Natriuret Pep Albumin Globulin Albumin/Globulin Ratio Triglycerides 08/05/16 08/05/16 16:08 16:08 WBC 17.4 H RBC 4.23 L Hgb Hct Plt Count Gran % 92.2 H Lymph % (Auto) 3.4 L Gran # 16.0 H Lymph # (Auto) 0.6 L VBG Lactic Acid Carbon Dioxide BUN 33 H Creatinine 2.1 H Glucose 130 H Uric Acid 13.6 H Calcium Phosphorus 2.1 L Total Bilirubin 2.2 H Direct Bilirubin AST 205 H ALT 51 H Lactate Dehydrogenase 340 H Total Creatine Kinase Troponin T NT-Pro-B Natriuret Pep Albumin Globulin Albumin/Globulin Ratio Triglycerides august 08: right lower extremity Doppler shows no evidence of DVT. august 07: echocardiogram report shows mild four-chamber enlargement. Left ventricular ejection fraction 50%. there is aortic root sclerosis. There is mild mitral regurgitation. -eKG from this morning shows normal sinus rhythm at a rate of 80, with frequent PVCs. August 06: -C. difficile screen is negative. -ABG on a 4.5 L O2 mask: PH 7.44 PCO2 27, PO2 70, bicarbonate 18, O2 saturation 94% -CT of the chest: Shows a small patchy left lower lobe infiltrate with small bilateral pleural effusions. Extremely heavy atherosclerotic calcification of all coronary arteries. Small pericardial effusion. 19 mm solitary stone in the gallbladder neck. 3.5 cm low attenuation lesion in the mid left kidney with an 18 mm satellite lesion in the perinephric fat. August 05: -Urine culture is negative. -blood cultures are negative so far. August 04: MRSA screen is negative. Meds: Medications Acetaminophen (Tylenol) 650 mg PO Q4-6HP PRN PRN Reason: PAIN/FEVER > 101 Last Admin: 08/07/16 23:02 Dose: 650 mg Albuterol Sulfate (Ventolin) 2.5 mg NEB Q2HP PRN PRN Reason: Shortness Of Breath Allopurinol (Zylopriim) 300 mg PO DAILY [facility] [place] Last Admin: 08/08/16 09:45 Dose: 300 mg Aspirin (Ecotrin) 325 mg PO DAILY [facility] [place] Last Admin: 08/08/16 09:45 Dose: 325 mg Clopidogrel Bisulfate (Plavix) 75 mg PO DAILY [facility] [place] Last Admin: 08/08/16 09:45 Dose: 75 mg Furosemide (Lasix) 20 mg IV BIDP PRN PRN Reason: Shortness Of Breath Gabapentin (Neurontin) 300 mg PO BID [facility] [place] Last Admin: 08/08/16 09:45 Dose: 300 mg Hydromorphone HCl (Dilaudid) 0.5 mg IV Q2HP PRN PRN Reason: Pain Piperacillin Sod/Tazobactam (Sod 3.375 gm/ Dextrose) 50 mls @ 100 mls/hr IV Q8H [facility] [place] Last Infusion: 08/08/16 07:25 Dose: Infused Vancomycin HCl 1,500 mg/ (Sodium Chloride) 500 mls @ 333.3 mls/hr IV Q24H [facility] [place] Last Infusion: 08/08/16 07:25 Dose: Infused Sodium Chloride (Sodium Chloride 0.9%) 1,000 mls @ 100 mls/hr IV .Q10H [facility] [place] Stop: 08/09/16 10:07 Last Admin: 08/08/16 07:44 Dose: 100 mls/hr Levofloxacin (Levaquin) 500 mg in 100 mls @ 100 mls/hr IV Q24H [facility] [place] Last Admin: 08/08/16 09:50 Dose: 100 mls/hr Magnesium Hydroxide (Milk Of Magnesia) 30 ml PO DAILYP PRN PRN Reason: Constipation Metoprolol Tartrate (Lopressor) 25 mg PO BID [facility] [place] Last Admin: 08/08/16 09:45 Dose: 25 mg Naloxone HCl (Narcan) 0.1 mg IV Q2MIN PRN PRN Reason: Opiate Reversal Ondansetron HCl (Zofran) 4 mg IV Q4-6HP PRN PRN Reason: Nausea And Vomiting Last Admin: 08/08/16 07:37 Dose: 4 mg Senna (Senokot) 1 tab PO HSP PRN PRN Reason: Constipation Silver Sulfadiazine (Silvadene) 1 dose TOPICAL DAILY [facility] [place] Sodium Chloride (Saline Flush) 10 ml IV Q8 [facility] [place] Last Admin: 08/08/16 05:48 Dose: 10 ml Vancomycin HCl (Vancomycin Per Pharmacy) 1 order IV UD [facility] [place] Medical - PN: A/P - Time Spent With Patient Total time spent is greater than 50% in coordination of care (as documented) at patient's floor/unit and/or counseling patient: 25 - 35 minutes - Narrative A/P Narrative: #1.Severe sepsis/infectious disease. - improving, bp stable, lactic acid now back to normal. however, the patient continues to spike fevers. he has an apparent right lower extremity cellulitis, and possible early pneumonia. It is unclear however, why he continues to spike fevers. he continues on Zosyn and vancomycin. blood cultures are negative so far. he does not appear to have a UTI. He does have cholelithiasis,but CT did not suggest cholecystitis. the patient continues on vancomycin, Zosyn, Levaquin, but continues to spike fevers. White blood cell count has dropped from 23,000down to 11,000. we had hoped to get an MRI today, to get a better look at his renal mass, but apparently he would not fit into the MRI tunnel. -He does have a renal mass,which could be malignant. This could also be a source of fever. He has a small pericardial effusion, so we will need to keep that in mind as a possible source. -Right lower leg cellulitis: X ray ankle shows soft tissue edema, no gas under surface. His cellulitis actually looked quite a bit worse today so I did ask Dr. Michelle of wound care to consult. #2. Cardiac. -This patient has known coronary disease, and has had dyspnea . Troponin was mildly positive, but echocardiogram, is reassuring. EKG does not show obvious ischemia. Vital signs have otherwise been stable .We will continue with aspirin, and I did add Plavix . Also, it appears he was taking atenolol at home so I added Lopressor. I will uptitrate that today. it does not appear that he had any significant cardiac insult, but does have underlying coronary disease. Both troponin and BNP may be more elevated than they otherwise would be, due to renal dysfunction. -BNP was elevated, so patient was given IV Lasix, regarding dyspnea. LVEF on echo looks fine. -he does take meloxicam at home, and I would avoid this in this patient with known coronary disease. #3.HTN: -BP stable- apparently atenolol was held on admission, for hypotension. Lopressor was added in view of likely underlying ischemia. #4.renal. -Acute Kidney Injury - - due to sepsis and rhabdomyolysis. creatinine is gradually improving. Baseline is 1.2. his is improving. he continues to have good urine output. CPK is also trending down. -CT scan shows a renal mass. The patient would not likely tolerate IV dye at this time, but we may be able to do that once his creatinine is back to normal. We could not do the MRI, due to his size.. #5.Ruben knee abrasions, right toe contusion: ruben bacitracin ointment, wound care #6.DVT hep sq #7.Full code #8. Pulmonary. -the patient has required oxygen at times, but this is improved today. He has been receiving aggressive IV fluids, but did seem to improve after IV Lasix , so we'll repeat this today. Hypoxemia is also likely due to significant obesity. Patient also has obstructive sleep apnea. PE is still in the differential, but he cannot tolerate a CT angiogram at this time. Continue to monitor. #9. GI. Mildly elevated LFTs. These are somewhat improved today. -patient has had bright red blood per rectum, as well as diarrhea. C. difficile screen was negative. He may be having some antibiotic associated diarrhea. He also has known hemorrhoids. Continue to monitor hemoglobin. He reports he had a colonoscopy about 12 years ago that was normal. so far today, this visit has taken approximately 35 minutes, including overnight issues, review of test results, interview and exam of the patient, discussion with nursing staff and his . Medical - PN: Qual - VTE Deep Vein Thrombosis/Pulmonary Embolism Present on Admission: No
[2016-08-08] MEDS: SILVER SULFADIAZINE CREAM.TOP 25GM TOPICAL SCH (12:29)
[2016-08-08] MEDS: VANCOMYCIN 1,500 MG in 0.9 % SODIUM CHLORIDE 500 ML IV SCH (16:17)
--- NOTE | 2016-08-08 17:18 | General Surgery Consult Note ---
History of Present Illness Patient information: Note initiated : 08/08/16 at 5:14 pm Service Date, if different from initiated Date: [] Patient: Sharif David 75 y/o M admitted on 08/05/16 for Cellulitis&Abscess of Rt Leg/Abrasion/Dehydration. Chief Complaint: [] Consult date: 08/08/16 (Wound care consult. Cellulitis RLE ) Requesting physician: Craline Aviles History of present illness: I saw the EHR and spoke with Hospitalist physician Shruthi Vázquez and examined patient along with Sarah COBOS. 75 year old obese man in ICU admitted with rhabdomyolysis and acute renal insufficiency and alkalosis. Noted to have right leg discoloration of toes, redness and edema of leg extending up to knee. Abrasions around knee. There was no crepitation or tenderness to palpation. Medications and Allergies Home Medications Medication Instructions Recorded Confirmed Type atenolol 50 mg tablet 50 mg PO BID tab 02/03/16 08/05/16 History pravastatin 40 mg tablet 40 mg PO QHS 02/03/16 08/05/16 History Allopurinol [Zylopriim] 300 mg PO BID tab 03/02/16 08/05/16 History diphenhydramine 25 mg capsule 25 mg PO Q4H PRN #90 cap 03/02/16 08/05/16 Rx aspirin 325 mg tablet 325 mg PO QDAY 03/30/16 08/05/16 History meloxicam 15 mg tablet 15 mg PO QDAY 03/30/16 08/05/16 History triamcinolone acetonide 55 mcg 1 spray INTRANASAL .COMPLEX 03/30/16 08/05/16 History nasal spray aerosol gabapentin 300 mg capsule 300 mg PO BID #60 cap 06/06/16 08/05/16 Rx olmesartan 40 mg tablet 40 mg PO QDAY #90 tab 06/06/16 08/05/16 Rx Allergies Allergy/AdvReac Type Severity Reaction Status Date / Time lisinopril Allergy Severe Swelling Verified 08/05/16 14:59 of face Exam Temp Pulse Resp BP Pulse Ox 101.7 F H 50 L 16 152/71 97 08/08/16 16:49 08/07/16 02:00 08/08/16 04:02 08/08/16 16:49 08/08/16 04:02 - General physical appearance well developed, well nourished, obese - Eyes PERRL, normal ocular movement - ENT normal pinna, normal nares, normal mucosa, no congestion - Head Head exam IM: Present: atraumatic, normal inspection, normocephalic - Neck no masses, no bruits, trachea midline, no venous distension - Cardiovascular Cardiovascular exam IM: Present: normal rate and rhythm - Respiratory normal expansion, normal respiratory effort, clear to auscultation - Abdomen Abdomen: Present: soft, non tender, bowel sounds - Genitourinary Present: normal penis with no external lesions, other (Black catheter draining clear urine.) - Integumentary Present: other (Pitting edema RLE from ankle to knee, Erythema, skin abrasions ( Friction ) with lymphatic drainage. NO evidence of acute lymphangitis or purulence. ) - Neurologic Present: normal coordination, normal sensation, other (AAO. ?? amnesia . Currently appropriate in responses and cooperative. ) - Musculoskeletal Present: other (In bed. Edema RLE maily confined to leg. Negative Melissa's sign. US Negative for DVT) Results - Labs 08/10/16 04:08 08/10/16 04:08 Abnormal lab results 08/08/16 08/08/16 Range/Units 03:30 03:30 WBC 11.4 H (4.5-11.0) K/mcL RBC 3.69 L (4.50-5.90) M/mcL Hgb 12.4 L (13.5-16.5) g/dL Hct 35.8 L (41.0-55.0) % Gran % 85.4 H (38.0-78.0) % Lymph % (Auto) 8.7 L (15.5-49.0) % Gran # 9.8 H (1.8-8.0) K/mcL Lymph # (Auto) 1.0 L (1.5-4.8) K/mcL Carbon Dioxide 20 L (22-30) mmol/L Creatinine 1.4 H (0.7-1.2) mg/dl Calcium 8.0 L (8.6-10.4) mg/dl Phosphorus 1.9 L (2.7-4.5) mg/dL Total Bilirubin 1.1 H (0.0-1.0) mg/dL AST 156 H (0-37) U/l ALT 72 H (0-40) U/l Lactate Dehydrogenase 334 H (94-250) U/L Total Creatine Kinase 5285 H (24-195) IU/L Albumin 2.8 L (3.2-5.2) gm/dL Albumin/Globulin Ratio 0.8 L (1.0-2.3) Diabetes panel 08/08/16 Range/Units 03:30 Sodium 138 (133-145) mmol/L Potassium 3.4 (3.3-5.1) mmol/L Chloride 106 (96-108) mmol/L Carbon Dioxide 20 L (22-30) mmol/L BUN 17 (8-23) mg/dl Creatinine 1.4 H (0.7-1.2) mg/dl Glucose 100 (70-105) mg/dL Calcium 8.0 L (8.6-10.4) mg/dl AST 156 H (0-37) U/l ALT 72 H (0-40) U/l Alkaline Phosphatase 95 (39-117) U/L Total Protein 6.1 (5.9-8.4) gm/dL Albumin 2.8 L (3.2-5.2) gm/dL Triglycerides 106 (<150) mg/dl Calcium panel 08/08/16 Range/Units 03:30 Calcium 8.0 L (8.6-10.4) mg/dl Phosphorus 1.9 L (2.7-4.5) mg/dL Albumin 2.8 L (3.2-5.2) gm/dL Pituitary panel 08/08/16 Range/Units 03:30 Sodium 138 (133-145) mmol/L Potassium 3.4 (3.3-5.1) mmol/L Chloride 106 (96-108) mmol/L Carbon Dioxide 20 L (22-30) mmol/L BUN 17 (8-23) mg/dl Creatinine 1.4 H (0.7-1.2) mg/dl Glucose 100 (70-105) mg/dL Calcium 8.0 L (8.6-10.4) mg/dl Adrenal panel 08/08/16 Range/Units 03:30 Sodium 138 (133-145) mmol/L Potassium 3.4 (3.3-5.1) mmol/L Chloride 106 (96-108) mmol/L Carbon Dioxide 20 L (22-30) mmol/L BUN 17 (8-23) mg/dl Creatinine 1.4 H (0.7-1.2) mg/dl Glucose 100 (70-105) mg/dL Calcium 8.0 L (8.6-10.4) mg/dl Total Bilirubin 1.1 H (0.0-1.0) mg/dL AST 156 H (0-37) U/l ALT 72 H (0-40) U/l Alkaline Phosphatase 95 (39-117) U/L Total Protein 6.1 (5.9-8.4) gm/dL Albumin 2.8 L (3.2-5.2) gm/dL All other labs normal. Assessment and Plan (1) Abrasion Conservative wound care management. ELEVATION, OFF LOADING. Change position q 2 hrly, Clean with chlorhexidine and pat dry daily, Silvadene creme and AMD Kerlix gauze and bandage daily. WILL follow with Hospitalist and Nursing team. Thanks for the referral. Status: Acute Priority: Medium (2) Rhabdomyolysis Agree with current ongoing medial management and supportive care. Status: Acute Qualifiers: Rhabdomyolysis type: non-traumatic Qualified Code(s): M62.82 - Rhabdomyolysis
[2016-08-08] MEDS ORDERED: FUROSEMIDE 20 MG/2 ML VIAL IV ONE (17:58)
[2016-08-08] MEDS ORDERED: HYDROCORTISONE ACETATE 25 MG SUPP.RECT PR PRN (18:01)
[2016-08-08] MEDS: ACETAMINOPHEN 325 MG TABLET PO PRN (19:30)
[2016-08-09] MEDS: 0.9 % SODIUM CHLORIDE 10 ML SYRINGE IV SCH ×3 (05:50→21:53)
[2016-08-09] MEDS: PIPERACILLIN SODIUM/TAZOBACTAM 3.375 GM in DEXTROSE 5% IN WATER 50 ML IV SCH ×4 (05:50→21:53)
[2016-08-09] MEDS: 0.9 % SODIUM CHLORIDE 1,000 ML IV SCH ×3 (05:50→20:35)
[2016-08-09 06:05] LABS: Basophils # (Auto) 0.1 K/mcL (0.0-0.3); Basophils % (Auto) 0.5 % (0.0-2.0); Eosinophils # (Auto) 0.1 K/mcL (0.0-0.7); Eosinophils % (Auto) 1.3 % (0.0-7.0); Granulocytes % (Auto) 76.7 % (38.0-78.0); Lymphocytes # (Auto) 1.5 K/mcL (1.5-4.8); Lymphocytes % (Auto) 14.1 % (15.5-49.0); Mean Cell Volume 95.6 fL (80.0-100.0); Mean Corpuscular HGB Conc 33.5 g/dL (31.0-36.0); Mean Corpuscular Hemoglobin 32.1 pg (26.0-34.0); Monocytes # (Auto) 0.8 K/mcL (0.1-0.9); Monocytes % (Auto) 7.4 % (1.0-12.0); Platelet Count 133 K/mcL (140-440); RBC 4.08 M/mcL (4.50-5.90); Red Cell Distribution Width 12.7 % (11.5-14.5)
[2016-08-09] MEDS ORDERED: FUROSEMIDE 20 MG/2 ML VIAL IV ONE ×2 (07:37→18:42)
[2016-08-09] MEDS ORDERED: 0.9 % SODIUM CHLORIDE 1,000 ML IV SCH (07:39)
[2016-08-09 07:57] LABS: ALT/SGPT 93 U/l (0-40); Albumin 2.9 gm/dL (3.2-5.2); Alkaline Phosphatase 103 U/L (39-117); Bilirubin,Direct 0.3 mg/dL (0.0-0.3); Blood Urea Nitrogen 14 mg/dl (8-23); Creatine Kinase 3174 IU/L (24-195); Gamma Glutamyl Transpeptidase 97 U/L (8-61); Magnesium 1.9 mg/dL (1.6-2.5); Uric Acid 4.4 mg/dL (2.5-8.0)
[2016-08-09] MEDS: LEVOFLOXACIN 500 MG/100 ML BAG IV SCH (08:22)
[2016-08-09] MEDS: SILVER SULFADIAZINE CREAM.TOP 25GM TOPICAL SCH (08:23)
[2016-08-09] MEDS: ACETAMINOPHEN 325 MG TABLET PO PRN ×2 (08:44→15:19)
[2016-08-09] MEDS: METOPROLOL TARTRATE 25 MG TABLET PO SCH ×2 (08:44→20:33)
[2016-08-09] MEDS: ASPIRIN 325 MG ENTERIC COATED TABLET PO SCH (08:44)
[2016-08-09] MEDS: CLOPIDOGREL 75 MG TABLET PO SCH (08:44)
[2016-08-09] MEDS: GABAPENTIN 300 MG CAPSULE PO SCH ×2 (08:44→20:33)
[2016-08-09] MEDS: ALLOPURINOL 300 MG TABLET PO SCH (09:08)
[2016-08-09] MEDS ORDERED: POTASSIUM CHLORIDE 20 MEQ TABLET PO ONE (09:10)
--- NOTE | 2016-08-09 10:20 | Internal Med Progress Note ---
Medical - PN: Subj Patient information: Note initiated : 08/09/16 at 10:19 am Patient: Sharif David a 75 y/o M admitted on 08/05/16 for Cellulitis&Abscess of Rt Leg/Abrasion/Dehydration. Interval history: August 05, 2016: History of present illness: Mr. David is a 75 year old M with h/o cad, neuropathy, presented to the ER after weakness in both his lower extremities since AM The patient reports he was ok yesterday, had mowed his lawn (self propelled) and may have not drank enough fluids, he was ok in the evening when he went to bed. He had one episode of chills and rigors at night. He woke up early in night and noted that he was weak and dizzy, when he tried to go to the bathroom. He woke up again around 4 and noted he did not have much strength in his legs, very tired and fatigued, unable to get up from the bathroom floor, he crawled his way to the bedroom, and scraped and injured his lower legs, he did not get better after few hrs and aft er the insistence of his grandson he called 911. The patient in the ER was noted to have elevated wbc count, high lactate, and renal failure, possible redness in the right leg, ua positive for blood and CK Rasied to 3600, admitted to the hospital for same. The patient denies any loss of bowel bladder function, no loss of sensation, only weakness bilaterally, able to move both legs. no trauma to the back. he is usually short of breath when he does more than usual activity at baseline , but denies any h/o COPD. 08/06: Patient seen examined, no acute overnight events, he feels much better, he had temp of 103, overnight, his labs reviewed, lactic acid is now normal, but his CK climbed to 13K, Patient cellutlitis has remained stable. Will get x ray ankle. august 07: this patient was admitted after a fall, and reported fever and chills. He presented with acute rhabdomyolysis leukocytosis, lactic acidosis and apparent right lower extremity cellulitis, as well as bilateral knee abrasions. he has continued to have fever spikes, with a temperature as high as 104 last night. yesterday evening, he had an episode of diarrhea, and got out of bed to get cleaned up. His nurse noted he became extremely short of breath and tachypnea That time. The patient reported that he always has mild dyspnea with exertion, but that this was worse than usual. He denied any associated chest pain or palpitations, but his nurse noted that he had much more ectopy on his lunchroom monitor, with frequent PVCs and occasional bigeminy, and some change and waveforms. Follow-up EKG showed sinus rhythm with frequent ectopy. Follow-up testing did show that he bumped his troponin to 0.06 and BNP was elevated at 1456. Blood gas showed moderate hypoxemia but no CO2 retention and normal pH. Chest CT was ordered last night, without contrast due to renal function, and shows a small left lower lobe infiltrate, and small bilateral pleural effusions , heavy coronary, as well as a small solitary stone in the gallbladder neck, and a 3.5 cm mass in the left kidney, worrisome for renal cell carcinoma. This morning, the patient says he is feeling better. He says shortness of breath is much improved. He denies any chest pain or palpitations. He has been having some bright red blood per rectum, and in addition to loose stools and notes he does have hemorrhoids. He does not feel feverish this morning, and denies chills. He denies chest pain or palpitations, abdominal pain, nausea or vomiting. Black catheter remains in place. He feels his right lower extremity is less red, less tender, less swollen today. August 08: today, the patient says he is feeling better. However this morning he started to have abdominal discomfort.he also had mild nausea. He was to have an MRI, so the nurse pulled his Black catheter with a temperature probe, out. She noted the end to be very crusted over and rather sharp. The patient then developed gross hematuria. Initially his abdominal discomfort improved, then it recurred then he passed more blood clots, and then the pain resolved again. he notes he is no longer having fever or chills. he denies sore throat or cough , chest pain or palpitations. His dyspnea with exertion and seems quite a bit improved. He denies vomiting, diarrhea, constipation. August 09: The patient notes he is feeling quite a bit better today. He did request to have his Black put back in yesterday, because he was having a lot of burning with urination. He is otherwise comfortable today. He denies fever or chills, sore throat or cough, chest pain or palpitations, abdominal pain, nausea or vomiting. His stools continue to be rather loose. - Constitutional Vitals: Vital Signs Temp Pulse Resp BP Pulse Ox 100.0 F H 50 L 18 151/57 95 08/09/16 08:25 08/07/16 02:00 08/09/16 08:25 08/09/16 08:25 08/09/16 08:25 Period Temp Pulse Resp BP Sys/Romero Pulse Ox Last 24 Hr 98.7 F-103.0 F 16-20 112-176/51-105 93-97 Intake and Output 08/08/16 08/09/16 08/09/16 21:59 05:59 13:59 Intake Total 1670 / 1670 1370 / 1370 942 / 942 Output Total 1949 950 / 950 Balance -280 / -280 420 / 420 942 / 942 Weight 290 lb Intake & Output: Intake & Output 08/08/16 08/09/16 08/09/16 21:59 05:59 13:59 Intake Total 1670 / 1670 1370 / 1370 942 / 942 Output Total 1949 950 / 950 Balance -280 / -280 420 / 420 942 / 942 Weight 290 lb Intake: IV 1550 / 1550 1050 / 1050 342 / 342 Sodium Chloride 0.9% 1, 1000 / 1000 1000 / 1000 292 / 292 000 ml @ 100 mls/hr IV . Q10H [facility] Rx#:[id number] Zosyn 3.375 gm In 50 / 50 50 / 50 50 / 50 Dextrose 5% in Water 50 ml @ 100 mls/hr IV Q8H [facility] Rx#:[id number] Vancomycin 1,500 mg In 500 / 500 Sodium Chloride 0.9% 500 ml @ 333.3 mls/hr IV Q24H [facility] Rx#:[id number] Oral 120 / 120 320 / 320 600 / 600 Output: Urine Catheter Amount 1949 950 / 950 Other: Meal Breakfast Percent of Meal Consumed 100% Feeding Ability Independent # Bowel Movements 1 1 on exam, he is lying in bed. He seems to be in good spirits today. neck shows no obvious JVD or lymphadenopathy. Cardiac exam shows regular rhythm, but with frequent ectopy. Lungs: Breath sounds are generally decreased, but otherwise appear clear to auscultation, without rales, rhonchi, wheezes. Abdomen: Is markedly obese, but soft and nontender, with normal bowel sounds. Extremities: Lower extremities are moderately swollen,with the right side much worse than the left. His right leg is red from the ankle to about the knee, with swelling and tenderness which are still very intense today. Swelling seems about the same, and leg generally looks as swollen as yesterday. He does have several blisters today, filled with clear fluid. neurologic exam is grossly nonfocal. Medical - PN: Obj Da - Labs CBC & Chem 7: 08/09/16 04:04 08/09/16 04:04 Labs: Abnormal Lab Results 08/09/16 08/09/16 08/08/16 04:04 04:04 03:30 WBC RBC 4.08 L Hgb 13.1 L Hct 39.0 L Plt Count 133 L Gran % Lymph % (Auto) 14.1 L Gran # 8.3 H Lymph # (Auto) Carbon Dioxide 21 L 20 L BUN Creatinine 1.3 H 1.4 H Calcium 8.1 L 8.0 L Phosphorus 2.2 L 1.9 L Total Bilirubin 1.1 H 1.1 H GGT 97 H AST 163 H 156 H ALT 93 H 72 H Lactate Dehydrogenase 377 H 334 H Total Creatine Kinase 3174 H 5285 H Troponin T NT-Pro-B Natriuret Pep Albumin 2.9 L 2.8 L Globulin Albumin/Globulin Ratio 0.8 L Triglycerides 08/08/16 08/07/16 08/07/16 03:30 13:45 04:08 WBC 11.4 H RBC 3.69 L Hgb 12.4 L Hct 35.8 L Plt Count Gran % 85.4 H Lymph % (Auto) 8.7 L Gran # 9.8 H Lymph # (Auto) 1.0 L Carbon Dioxide 21 L BUN 25 H Creatinine 1.7 H Calcium 8.2 L Phosphorus Total Bilirubin 1.3 H GGT AST 210 H ALT 77 H Lactate Dehydrogenase 481 H Total Creatine Kinase 19363 H Troponin T 0.06 H* NT-Pro-B Natriuret Pep Albumin 2.8 L Globulin 3.9 H Albumin/Globulin Ratio 0.7 L Triglycerides 223 H 08/07/16 08/07/16 08/06/16 04:08 03:08 20:58 WBC 11.9 H RBC 3.97 L Hgb 13.3 L Hct 38.9 L Plt Count Gran % 82.9 H Lymph % (Auto) 11.6 L Gran # 9.9 H Lymph # (Auto) 1.4 L Carbon Dioxide BUN Creatinine Calcium Phosphorus Total Bilirubin GGT AST ALT Lactate Dehydrogenase Total Creatine Kinase Troponin T 0.10 H* NT-Pro-B Natriuret Pep 1456.0 H Albumin Globulin Albumin/Globulin Ratio Triglycerides 08/06/16 20:58 WBC RBC Hgb Hct Plt Count Gran % Lymph % (Auto) Gran # Lymph # (Auto) Carbon Dioxide BUN Creatinine Calcium Phosphorus Total Bilirubin GGT AST ALT Lactate Dehydrogenase Total Creatine Kinase Troponin T 0.06 H* NT-Pro-B Natriuret Pep Albumin Globulin Albumin/Globulin Ratio Triglycerides august 08: right lower extremity Doppler shows no evidence of DVT. august 07: echocardiogram report shows mild four-chamber enlargement. Left ventricular ejection fraction 50%. there is aortic root sclerosis. There is mild mitral regurgitation. -eKG from this morning shows normal sinus rhythm at a rate of 80, with frequent PVCs. August 06: -C. difficile screen is negative. -ABG on a 4.5 L O2 mask: PH 7.44 PCO2 27, PO2 70, bicarbonate 18, O2 saturation 94% -CT of the chest: Shows a small patchy left lower lobe infiltrate with small bilateral pleural effusions. Extremely heavy atherosclerotic calcification of all coronary arteries. Small pericardial effusion. 19 mm solitary stone in the gallbladder neck. 3.5 cm low attenuation lesion in the mid left kidney with an 18 mm satellite lesion in the perinephric fat. August 05: -Urine culture is negative. -blood cultures are negative so far. August 04: MRSA screen is negative. Meds: Medications Acetaminophen (Tylenol) 650 mg PO Q4-6HP PRN PRN Reason: PAIN/FEVER > 101 Last Admin: 08/09/16 08:44 Dose: 650 mg Albuterol Sulfate (Ventolin) 2.5 mg NEB Q2HP PRN PRN Reason: Shortness Of Breath Allopurinol (Zylopriim) 300 mg PO DAILY [facility] Last Admin: 08/09/16 09:08 Dose: 300 mg Aspirin (Ecotrin) 325 mg PO DAILY [facility] Last Admin: 08/09/16 08:44 Dose: 325 mg Clopidogrel Bisulfate (Plavix) 75 mg PO DAILY [facility] Last Admin: 08/09/16 08:44 Dose: 75 mg Furosemide (Lasix) 20 mg IV BIDP PRN PRN Reason: Shortness Of Breath Gabapentin (Neurontin) 300 mg PO BID [facility] Last Admin: 08/09/16 08:44 Dose: 300 mg Hydrocortisone Acetate (Anusol Hc) 25 mg ND BIDP PRN PRN Reason: Hemorrhoids Hydromorphone HCl (Dilaudid) 0.5 mg IV Q2HP PRN PRN Reason: Pain Piperacillin Sod/Tazobactam (Sod 3.375 gm/ Dextrose) 50 mls @ 100 mls/hr IV Q8H [facility] Last Infusion: 08/09/16 06:30 Dose: Infused Vancomycin HCl 1,500 mg/ (Sodium Chloride) 500 mls @ 333.3 mls/hr IV Q24H [facility] Last Infusion: 08/08/16 18:00 Dose: Infused Levofloxacin (Levaquin) 500 mg in 100 mls @ 100 mls/hr IV Q24H [facility] Last Admin: 08/09/16 08:22 Dose: 100 mls/hr Sodium Chloride (Sodium Chloride 0.9%) 1,000 mls @ 75 mls/hr IV .[id number] [facility] Last Admin: 08/09/16 08:45 Dose: Not Given Magnesium Hydroxide (Milk Of Magnesia) 30 ml PO DAILYP PRN PRN Reason: Constipation Metoprolol Tartrate (Lopressor) 50 mg PO BID [facility] Last Admin: 08/09/16 08:44 Dose: 50 mg Naloxone HCl (Narcan) 0.1 mg IV Q2MIN PRN PRN Reason: Opiate Reversal Ondansetron HCl (Zofran) 4 mg IV Q4-6HP PRN PRN Reason: Nausea And Vomiting Last Admin: 08/08/16 07:37 Dose: 4 mg Senna (Senokot) 1 tab PO HSP PRN PRN Reason: Constipation Silver Sulfadiazine (Silvadene) 1 dose TOPICAL DAILY [facility] Last Admin: 08/09/16 08:23 Dose: 1 dose Sodium Chloride (Saline Flush) 10 ml IV Q8 [facility] Last Admin: 08/09/16 05:50 Dose: Not Given Vancomycin HCl (Vancomycin Per Pharmacy) 1 order IV [facility] [place] Medical - PN: A/P - Time Spent With Patient Total time spent is greater than 50% in coordination of care (as documented) at patient's floor/unit and/or counseling patient: 25 - 35 minutes - Narrative A/P Narrative: #1.Severe sepsis/infectious disease. - improving, bp stable, lactic acid now back to normal. however, the patient continues to spike fevers. he has an apparent right lower extremity cellulitis, and possible early pneumonia. It is unclear however, why he continues to spike fevers. he continues on Zosyn and vancomycin. blood cultures are negative so far. he does not appear to have a UTI. He does have cholelithiasis,but CT did not suggest cholecystitis. -His right lower leg cellulitis does actually look quite severe, and this may indeed be the source. He does have large calluses on his feet, and a cracked callus may be the source of his infection. We will have him follow-up with podiatry. the patient continues on vancomycin, Zosyn, Levaquin. White blood cell count and absolute neutrophil counts are trending down. MRI had to be canceled. -He does have a renal mass,which could be malignant. This could also be a source of fever. He has a small pericardial effusion, so we will need to keep that in mind as a possible source. -Right lower leg cellulitis: X ray ankle shows soft tissue edema, no gas under surface. His cellulitis actually looked quite a bit worse yesterday, so Dr. Michelle is now following as well. #2. Cardiac. -This patient has known coronary disease, and has had dyspnea . Troponin was mildly positive, but echocardiogram, is reassuring. EKG does not show obvious ischemia. Vital signs have otherwise been stable .We will continue with aspirin, and I did add Plavix . Also, it appears he was taking atenolol at home so I added Lopressor. I will up-titrate that again today. it does not appear that he had any significant cardiac insult, but does have underlying coronary disease. Both troponin and BNP may have been more elevated than they otherwise would be , due to renal dysfunction. (-BNP was elevated, so patient was given IV Lasix, regarding dyspnea. LVEF on echo looks fine. -he does take meloxicam at home, and I would avoid this in this patient with known coronary disease.) #3.HTN: -BP stable- apparently atenolol was held on admission, for hypotension. Lopressor was added in view of likely underlying ischemia. He is tolerating this well. #4.renal. -Acute Kidney Injury - - due to sepsis and rhabdomyolysis. creatinine is gradually improving. Baseline is 1.2. his is improving. he continues to have good urine output. CPK is also trending down. -CT scan shows a renal mass. The patient would not likely tolerate IV dye at this time, but we may be able to do that once his creatinine is back to normal. We could not do the MRI, due to his size.. #5.Ruben knee abrasions, right toe contusion: ruben bacitracin ointment, wound care #6.DVT hep sq #7.Full code #8. Pulmonary. -the patient has required oxygen at times, but this is improved today. He has been receiving aggressive IV fluids, but did seem to improve after IV Lasix , so we'll repeat this today. Hypoxemia is also likely due to significant obesity. Patient also has obstructive sleep apnea. PE is still in the differential, but he cannot tolerate a CT angiogram at this time. Continue to monitor. #9. GI. Mildly elevated LFTs. These are trending up again. I suspect this is due to passive liver congestion related to his volume overload. -patient has had bright red blood per rectum, as well as diarrhea. C. difficile screen was negative. He may be having some antibiotic associated diarrhea. He also has known hemorrhoids. Continue to monitor hemoglobin. He reports he had a colonoscopy about 12 years ago that was normal. so far today, this visit has taken approximately 30 minutes, including overnight issues, review of test results, interview and exam of the patient, discussion with nursing staff and his . Medical - PN: Qual - VTE Deep Vein Thrombosis/Pulmonary Embolism Present on Admission: No
[2016-08-09] MEDS ORDERED: ALBUTEROL SULFATE 2.5 MG/3 ML NEBULIZER NEB PRN (14:20)
[2016-08-09] MEDS ORDERED: NALOXONE HCL 0.4 MG/ML VIAL IV PRN (14:20)
[2016-08-09] MEDS ORDERED: HYDROmorphone 2 MG/ML SYRINGE IV PRN (14:20)
[2016-08-09] MEDS ORDERED: ONDANSETRON 4 MG/2 ML VIAL IV PRN (14:20)
[2016-08-09] MEDS ORDERED: HYDROCORTISONE ACETATE 25 MG SUPP.RECT PR PRN (14:20)
[2016-08-09] MEDS ORDERED: MAGNESIUM HYDROXIDE 30 ML ORAL.SUSP PO PRN (14:20)
[2016-08-09] MEDS ORDERED: VANCOMYCIN PER PHARMACY IV SCH (14:20)
[2016-08-09] MEDS: FUROSEMIDE 20 MG/2 ML VIAL IV PRN (15:20)
[2016-08-09] MEDS ORDERED: VANCOMYCIN 1,500 MG in 0.9 % SODIUM CHLORIDE 500 ML IV SCH (16:00)
--- NOTE | 2016-08-09 19:02 | General Surgery Progress Note ---
Subjective Patient reports: no new complaints Narrative: Note initiated : 08/09/16 at 6:59 pm Service Date, if different from initiated Date: [] Patient: Sharif David 75 y/o M admitted on 08/05/16 for Cellulitis&Abscess of Rt Leg/Abrasion/Dehydration. Chief Complaint: [] Objective Temp Pulse Resp BP Pulse Ox 100.0 F H 79 16 148/85 95 08/09/16 15:32 08/09/16 14:00 08/09/16 15:32 08/09/16 15:32 08/09/16 15:32 Low grade temperature. HD stable. Progress reviewed with nursing staff. No evidence of DVT . Ongoing wound care RLE. - Additional Data Intake & Output - Last 24 hours: Intake & Output 08/07/16 08/08/16 08/09/16 08/10/16 05:59 05:59 05:59 05:59 Intake Total 3753 / 3753 3610 / 3610 6690 / 6690 1792 / 1792 Output Total 3845 / 3845 1979 / 1979 3133 / 3133 2300 / 2300 Balance -92 / -92 1630 / 1630 3557 / 3557 -508 / -508 Weight 293 lb 1.6 oz 295 lb 290 lb - Labs 08/09/16 04:04 08/09/16 04:04 Diabetes panel 08/09/16 Range/Units 04:04 Sodium 140 (133-145) mmol/L Potassium 3.5 (3.3-5.1) mmol/L Chloride 106 (96-108) mmol/L Carbon Dioxide 21 L (22-30) mmol/L BUN 14 (8-23) mg/dl Creatinine 1.3 H (0.7-1.2) mg/dl Glucose 86 (70-105) mg/dL Calcium 8.1 L (8.6-10.4) mg/dl AST 163 H (0-37) U/l ALT 93 H (0-40) U/l Alkaline Phosphatase 103 (39-117) U/L Total Protein 5.9 (5.9-8.4) gm/dL Albumin 2.9 L (3.2-5.2) gm/dL Triglycerides 103 (<150) mg/dl Calcium panel 08/09/16 Range/Units 04:04 Calcium 8.1 L (8.6-10.4) mg/dl Phosphorus 2.2 L (2.7-4.5) mg/dL Albumin 2.9 L (3.2-5.2) gm/dL Pituitary panel 08/09/16 Range/Units 04:04 Sodium 140 (133-145) mmol/L Potassium 3.5 (3.3-5.1) mmol/L Chloride 106 (96-108) mmol/L Carbon Dioxide 21 L (22-30) mmol/L BUN 14 (8-23) mg/dl Creatinine 1.3 H (0.7-1.2) mg/dl Glucose 86 (70-105) mg/dL Calcium 8.1 L (8.6-10.4) mg/dl Adrenal panel 08/09/16 Range/Units 04:04 Sodium 140 (133-145) mmol/L Potassium 3.5 (3.3-5.1) mmol/L Chloride 106 (96-108) mmol/L Carbon Dioxide 21 L (22-30) mmol/L BUN 14 (8-23) mg/dl Creatinine 1.3 H (0.7-1.2) mg/dl Glucose 86 (70-105) mg/dL Calcium 8.1 L (8.6-10.4) mg/dl Total Bilirubin 1.1 H (0.0-1.0) mg/dL AST 163 H (0-37) U/l ALT 93 H (0-40) U/l Alkaline Phosphatase 103 (39-117) U/L Total Protein 5.9 (5.9-8.4) gm/dL Albumin 2.9 L (3.2-5.2) gm/dL Assessment and Plan - Narrative A/P Narrative: Assessment; H/O Fall Rhabdomyolysis RLE . No evidence of DVT. Soft tissue edema and abrasions. NO paresthesias. Plan : Continua current treatment and wound care. Fallowing patient . - Time Spent With Patient Total time spent is greater than 50% in coordination of care (as documented) at patient's floor/unit and/or counseling patient: less than 15 minutes
[2016-08-09] MEDS ORDERED: SENNOSIDES 1 TABLET PO PRN (21:00)
[2016-08-10 05:34] LABS: Basophils # (Auto) 0 K/mcL (0.0-0.3); Basophils % (Auto) 0.2 % (0.0-2.0); Eosinophils # (Auto) 0.2 K/mcL (0.0-0.7); Eosinophils % (Auto) 1.9 % (0.0-7.0); Granulocytes % (Auto) 80.5 % (38.0-78.0); Lymphocytes # (Auto) 1.3 K/mcL (1.5-4.8); Lymphocytes % (Auto) 11.9 % (15.5-49.0); Mean Cell Volume 98.3 fL (80.0-100.0); Mean Corpuscular HGB Conc 33.6 g/dL (31.0-36.0); Monocytes # (Auto) 0.6 K/mcL (0.1-0.9); Monocytes % (Auto) 5.5 % (1.0-12.0); Platelet Count 200 K/mcL (140-440); RBC 3.66 M/mcL (4.50-5.90); Red Cell Distribution Width 13.6 % (11.5-14.5)
[2016-08-10] MEDS: PIPERACILLIN SODIUM/TAZOBACTAM 3.375 GM in DEXTROSE 5% IN WATER 50 ML IV SCH ×3 (05:37→22:05)
[2016-08-10] MEDS: 0.9 % SODIUM CHLORIDE 10 ML SYRINGE IV SCH ×3 (05:55→22:05)
[2016-08-10] MEDS: 0.9 % SODIUM CHLORIDE 1,000 ML IV SCH (05:55)
[2016-08-10 06:51] LABS: ALT/SGPT 82 U/l (0-40); Albumin 2.7 gm/dL (3.2-5.2); Albumin/Globulin Ratio 0.7 (1.0-2.3); Alkaline Phosphatase 112 U/L (39-117); Bilirubin,Direct < 0.2 mg/dL (0.0-0.3); Blood Urea Nitrogen 15 mg/dl (8-23); Creatine Kinase 1608 IU/L (24-195); Gamma Glutamyl Transpeptidase 108 U/L (8-61); Magnesium 1.9 mg/dL (1.6-2.5); Uric Acid 4.2 mg/dL (2.5-8.0)
[2016-08-10] MEDS ORDERED: POTASSIUM CHLORIDE 20 MEQ in 0.9 % SODIUM CHLORIDE 1,000 ML IV SCH (08:04)
[2016-08-10] MEDS ORDERED: NACL 0.9% W/KCL 20MEQ 1,000 ML IV SCH (08:15)
[2016-08-10] MEDS ORDERED: ASPIRIN 325 MG ENTERIC COATED TABLET PO SCH (09:00)
[2016-08-10] MEDS ORDERED: CLOPIDOGREL 75 MG TABLET PO SCH (09:00)
[2016-08-10] MEDS ORDERED: POTASSIUM CHLORIDE 40 MEQ in DEXTROSE 5% IN WATER 500 ML IV ONE (09:00)
[2016-08-10] MEDS ORDERED: SILVER SULFADIAZINE CREAM.TOP 25GM TOPICAL SCH (09:00)
[2016-08-10] MEDS ORDERED: LEVOFLOXACIN 500 MG/100 ML BAG IV SCH (09:00)
[2016-08-10] MEDS ORDERED: ALLOPURINOL 300 MG TABLET PO SCH (09:00)
[2016-08-10 09:20] LABS: CK Total 8376 U/L (44-196)
[2016-08-10] MEDS: ACETAMINOPHEN 325 MG TABLET PO PRN ×3 (10:42→23:41)
[2016-08-10] MEDS: FUROSEMIDE 20 MG/2 ML VIAL IV PRN (10:42)
[2016-08-10] MEDS: METOPROLOL TARTRATE 25 MG TABLET PO SCH ×2 (10:43→20:08)
[2016-08-10] MEDS: GABAPENTIN 300 MG CAPSULE PO SCH ×2 (10:43→20:08)
--- NOTE | 2016-08-10 12:06 | Internal Med Progress Note ---
Medical - PN: Subj Patient information: Note initiated : 08/10/16 at 12:06 pm Service Date, if different from initiated Date: [] Patient: Sharif David a 75 y/o M admitted on 08/05/16 for Cellulitis&Abscess of Rt Leg/Abrasion/Dehydration. Chief Complaint: [] Interval history: August 05, 2016: History of present illness: Mr. David is a 75 year old M with h/o cad, neuropathy, presented to the ER after weakness in both his lower extremities since AM The patient reports he was ok yesterday, had mowed his lawn (self propelled) and may have not drank enough fluids, he was ok in the evening when he went to bed. He had one episode of chills and rigors at night. He woke up early in night and noted that he was weak and dizzy, when he tried to go to the bathroom. He woke up again around 4 and noted he did not have much strength in his legs, very tired and fatigued, unable to get up from the bathroom floor, he crawled his way to the bedroom, and scraped and injured his lower legs, he did not get better after few hrs and aft er the insistence of his grandson he called 911. The patient in the ER was noted to have elevated wbc count, high lactate, and renal failure, possible redness in the right leg, ua positive for blood and CK Rasied to 3600, admitted to the hospital for same. The patient denies any loss of bowel bladder function, no loss of sensation, only weakness bilaterally, able to move both legs. no trauma to the back. he is usually short of breath when he does more than usual activity at baseline , but denies any h/o COPD. 08/06: Patient seen examined, no acute overnight events, he feels much better, he had temp of 103, overnight, his labs reviewed, lactic acid is now normal, but his CK climbed to 13K, Patient cellutlitis has remained stable. Will get x ray ankle. august 07: this patient was admitted after a fall, and reported fever and chills. He presented with acute rhabdomyolysis leukocytosis, lactic acidosis and apparent right lower extremity cellulitis, as well as bilateral knee abrasions. he has continued to have fever spikes, with a temperature as high as 104 last night. yesterday evening, he had an episode of diarrhea, and got out of bed to get cleaned up. His nurse noted he became extremely short of breath and tachypnea That time. The patient reported that he always has mild dyspnea with exertion, but that this was worse than usual. 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 Follow-up EKG showed sinus rhythm with frequent ectopy. Follow-up testing did show that he bumped his troponin to 0.06 and BNP was elevated at 1456. Blood gas showed moderate hypoxemia but no CO2 retention and normal pH. Chest CT was ordered last night, without contrast due to renal function, and shows a small left lower lobe infiltrate, and small bilateral pleural effusions , heavy coronary, as well as a small solitary stone in the gallbladder neck, and a 3.5 cm mass in the left kidney, worrisome for renal cell carcinoma. This morning, the patient says he is feeling better. He says shortness of breath is much improved. He denies any chest pain or palpitations. He has been having some bright red blood per rectum, and in addition to loose stools and notes he does have hemorrhoids. He does not feel feverish this morning, and denies chills. He denies chest pain or palpitations, abdominal pain, nausea or vomiting. Black catheter remains in place. He feels his right lower extremity is less red, less tender, less swollen today. August 08: today, the patient says he is feeling better. However this morning he started to have abdominal discomfort.he also had mild nausea. He was to have an MRI, so the nurse pulled his Black catheter with a temperature probe, out. She noted the end to be very crusted over and rather sharp. The patient then developed gross hematuria. Initially his abdominal discomfort improved, then it recurred then he passed more blood clots, and then the pain resolved again. he notes he is no longer having fever or chills. he denies sore throat or cough , chest pain or palpitations. His dyspnea with exertion and seems quite a bit improved. He denies vomiting, diarrhea, constipation. August 09: The patient notes he is feeling quite a bit better today. He did request to have his Black put back in yesterday, because he was having a lot of burning with urination. He is otherwise comfortable today. He denies fever or chills, sore throat or cough, chest pain or palpitations, abdominal pain, nausea or vomiting. His stools continue to be rather loose. August 10: Today, the patient continues to say that he is feeling better. His breathing is better. His leg seems a little bit less swollen. He denies fever chills, chest pain or palpitations, significant shortness of breath, abdominal pain, nausea or vomiting. Stools continue to be loose. Black catheter remains in place, at patient's request, for comfort. He is continuing on IV fluids and has significant urine output. -He continues to spike low-grade temperatures, with the last being 100.4. He has good urine output, but remains significantly positive on intake and output. CK continues to decline. -I believe he walked a little with physical therapy today, and says he understands that he needs to work on strengthening, prior to consideration of going home. - Constitutional Vitals: Vital Signs Temp Pulse Resp BP Pulse Ox 99.2 F H 73 16 138/62 93 08/10/16 11:46 08/10/16 07:09 08/10/16 11:46 08/10/16 11:46 08/10/16 11:46 Period Temp Pulse Resp BP Sys/Romero Pulse Ox Last 24 Hr 99.1 F-100.0 F 73-79 15-22 133-153/52-85 93-97 Intake and Output 08/09/16 08/10/16 08/10/16 21:59 05:59 13:59 Intake Total 1957 290 / 290 1150 / 1150 Output Total 950 / 950 2350 / 2350 Balance 1008 / 8 -2059 -2059 1150 / 1150 Weight 295 lb 8 oz Intake & Output: Intake & Output 08/09/16 08/10/16 08/10/16 21:59 05:59 13:59 Intake Total 1957 290 / 290 1150 / 1150 Output Total 950 / 950 2350 / 2350 Balance 1008 / 1008 -2059 / 1150 / 1150 Weight 295 lb 8 oz Intake: IV 1258 / 1258 50 / 50 1150 / 1150 Zosyn 3.375 gm In 50 / 50 50 / 50 50 / 50 Dextrose 5% in Water 50 ml @ 100 mls/hr IV Q8H [facility] Rx#:[id number] Vancomycin 1,500 mg In 500 / 500 Sodium Chloride 0.9% 500 ml @ 333.3 mls/hr IV Q24H [facility] Rx#:[id number] Oral 700 / 700 240 / 240 Output: Urine Catheter Amount 950 / 950 2350 / 2350 Other: Meal Dinner Percent of Meal Consumed 100% # Bowel Movements 1 1 1 On exam, he is in no acute distress. Neck is supple without obvious JVD. Cardiac exam shows regular rate and rhythm, with normal S1 and S2. Lungs: Are essentially clear to auscultation, without obvious rales, rhonchi, wheezes. Abdomen is quite protuberant, but soft and nontender. Extremities: Show significant diffuse edema, but this is definitely worse in the right leg, below the knee. He continues to have significant swelling, with large blisters filled with yellowish fluid, erythema, weeping of fluid from the leg. The rash mainly extends around the front and sides of the church and spares the posterior calf. The erythema has receded from the inked margins, but in general continues to be fairly intense. The patient feels his leg is less warm and less tender. Neurologic exam: Is grossly nonfocal. Medical - PN: Obj Da - Labs CBC & Chem 7: 08/10/16 04:08 08/10/16 04:08 Labs: Abnormal Lab Results 08/10/16 08/10/16 08/09/16 04:08 04:08 04:04 WBC RBC 3.66 L Hgb 12.1 L Hct 36.0 L Plt Count Gran % 80.5 H Lymph % (Auto) 11.9 L Gran # 8.7 H Lymph # (Auto) 1.3 L Potassium 3.2 L Carbon Dioxide 21 L Creatinine 1.3 H 1.3 H Glucose 119 H Calcium 8.5 L 8.1 L Phosphorus 2.0 L 2.2 L Total Bilirubin 1.1 H GGT 108 H 97 H AST 114 H 163 H ALT 82 H 93 H Lactate Dehydrogenase 273 H 377 H Total Creatine Kinase 1608 H 3174 H Troponin T Albumin 2.7 L 2.9 L Globulin 3.8 H Albumin/Globulin Ratio 0.7 L 08/09/16 08/08/16 08/08/16 04:04 03:30 03:30 WBC 11.4 H RBC 4.08 L 3.69 L Hgb 13.1 L 12.4 L Hct 39.0 L 35.8 L Plt Count 133 L Gran % 85.4 H Lymph % (Auto) 14.1 L 8.7 L Gran # 8.3 H 9.8 H Lymph # (Auto) 1.0 L Potassium Carbon Dioxide 20 L Creatinine 1.4 H Glucose Calcium 8.0 L Phosphorus 1.9 L Total Bilirubin 1.1 H GGT AST 156 H ALT 72 H Lactate Dehydrogenase 334 H Total Creatine Kinase 5285 H Troponin T Albumin 2.8 L Globulin Albumin/Globulin Ratio 0.8 L 08/07/16 13:45 WBC RBC Hgb Hct Plt Count Gran % Lymph % (Auto) Gran # Lymph # (Auto) Potassium Carbon Dioxide Creatinine Glucose Calcium Phosphorus Total Bilirubin GGT AST ALT Lactate Dehydrogenase Total Creatine Kinase Troponin T 0.06 H* Albumin Globulin Albumin/Globulin Ratio august 08: -right lower extremity Doppler shows no evidence of DVT. Right knee wound culture is being read as negative. august 07: echocardiogram report shows mild four-chamber enlargement. Left ventricular ejection fraction 50%. there is aortic root sclerosis. There is mild mitral regurgitation. -eKG from this morning shows normal sinus rhythm at a rate of 80, with frequent PVCs. August 06: -C. difficile screen is negative. -ABG on a 4.5 L O2 mask: PH 7.44 PCO2 27, PO2 70, bicarbonate 18, O2 saturation 94% -CT of the chest: Shows a small patchy left lower lobe infiltrate with small bilateral pleural effusions. Extremely heavy atherosclerotic calcification of all coronary arteries. Small pericardial effusion. 19 mm solitary stone in the gallbladder neck. 3.5 cm low attenuation lesion in the mid left kidney with an 18 mm satellite lesion in the perinephric fat. August 05: -Urine culture is negative. -blood cultures are negative so far. August 04: MRSA screen is negative. Meds: Medications Acetaminophen (Tylenol) 650 mg PO Q4-6HP PRN PRN Reason: PAIN/FEVER > 101 Last Admin: 08/10/16 10:42 Dose: 650 mg Albuterol Sulfate (Ventolin) 2.5 mg NEB Q2HP PRN PRN Reason: Shortness Of Breath Allopurinol (Zylopriim) 300 mg PO DAILY [facility] Last Admin: 08/10/16 10:43 Dose: 300 mg Aspirin (Ecotrin) 325 mg PO DAILY [facility] Last Admin: 08/10/16 10:42 Dose: 325 mg Clopidogrel Bisulfate (Plavix) 75 mg PO DAILY [facility] Last Admin: 08/10/16 10:42 Dose: 75 mg Furosemide (Lasix) 20 mg IV BIDP PRN PRN Reason: Shortness Of Breath Last Admin: 08/10/16 10:42 Dose: 20 mg Gabapentin (Neurontin) 300 mg PO BID [facility] Last Admin: 08/10/16 10:43 Dose: 300 mg Hydrocortisone Acetate (Anusol Hc) 25 mg TN BIDP PRN PRN Reason: Hemorrhoids Hydromorphone HCl (Dilaudid) 0.5 mg IV Q2HP PRN PRN Reason: Pain Levofloxacin (Levaquin) 500 mg in 100 mls @ 100 mls/hr IV Q24H [facility] Last Infusion: 08/10/16 10:23 Dose: Infused Piperacillin Sod/Tazobactam (Sod 3.375 gm/ Dextrose) 50 mls @ 100 mls/hr IV Q8H [facility] Last Infusion: 08/10/16 06:30 Dose: Infused Vancomycin HCl 1,500 mg/ (Sodium Chloride) 500 mls @ 333.3 mls/hr IV Q24H [facility] Last Infusion: 08/09/16 18:30 Dose: Infused Potassium Chloride 40 meq/ (Dextrose) 520 mls @ 130 mls/hr IV ONCE ONE Stop: 08/10/16 12:59 Last Admin: 08/10/16 08:38 Dose: 130 mls/hr Potassium Chloride/Sodium Chloride (Nacl 0.9% W/Kcl 20meq 1000ml) 1,000 mls @ 75 mls/hr IV .[id number] [facility] Last Admin: 08/10/16 11:31 Dose: 75 mls/hr Magnesium Hydroxide (Milk Of Magnesia) 30 ml PO DAILYP PRN PRN Reason: Constipation Metoprolol Tartrate (Lopressor) 50 mg PO BID [facility] Last Admin: 08/10/16 10:43 Dose: 50 mg Naloxone HCl (Narcan) 0.1 mg IV Q2MIN PRN PRN Reason: Opiate Reversal Ondansetron HCl (Zofran) 4 mg IV Q4-6HP PRN PRN Reason: Nausea And Vomiting Senna (Senokot) 1 tab PO HSP PRN PRN Reason: Constipation Silver Sulfadiazine (Silvadene) 1 dose TOPICAL DAILY [facility] Last Admin: 08/10/16 08:39 Dose: 1 dose Sodium Chloride (Saline Flush) 10 ml IV Q8 [facility] Last Admin: 08/10/16 05:55 Dose: Not Given Vancomycin HCl (Vancomycin Per Pharmacy) 1 order IV UD [facility] Medical - PN: A/P - Time Spent With Patient Total time spent is greater than 50% in coordination of care (as documented) at patient's floor/unit and/or counseling patient: 25 - 35 minutes - Narrative A/P Narrative: #1.Severe sepsis/infectious disease. - improving, bp stable, lactic acid now back to normal. however, the patient continues to spike fevers. he has an apparent right lower extremity cellulitis, and possible early pneumonia. It is unclear however, why he continues to spike fevers. he continues on Zosyn and vancomycin. blood cultures are negative so far. he does not appear to have a UTI. He does have cholelithiasis,but CT did not suggest cholecystitis. -His right lower leg cellulitis does actually look quite severe, and this may indeed be the source. -He does have large calluses on his feet, and a cracked callus may be the source of his infection. We will have him follow-up with podiatry. -the patient continues on vancomycin, Zosyn, Levaquin. White blood cell count and absolute neutrophil counts are trending down. MRI had to be canceled. It is not clear why he continues to spike fevers, but white blood cell count is trending down, so this is reassuring. He does have marked edema, likely related to the aggressive IV fluid hydration he is receiving. Once we are able to diurese him further, this may improve more quickly. There is still the possibility that his renal mass is contributing to fevers. - This could also be a source of fever. He has a small pericardial effusion, so we will need to keep that in mind as a possible source. - Dr. Michelle is now following as well. #2. Cardiac. -This patient has known coronary disease, and has had dyspnea . Troponin was mildly positive, but echocardiogram, is reassuring. EKG does not show obvious ischemia. Vital signs have otherwise been stable .We will continue with aspirin, and I did add Plavix . Also, it appears he was taking atenolol at home so I added Lopressor. it does not appear that he had any significant cardiac insult, but does have underlying coronary disease. Both troponin and BNP may have been more elevated than they otherwise would be , due to renal dysfunction. (-BNP was elevated, so patient was given IV Lasix, regarding dyspnea. LVEF on echo looks fine. -he does take meloxicam at home, and I would avoid this in this patient with known coronary disease.) #3.HTN: -BP stable- apparently atenolol was held on admission, for hypotension. Lopressor was added in view of likely underlying ischemia. He is tolerating this well. #4.renal. -Acute Kidney Injury - - due to sepsis and rhabdomyolysis. creatinine is gradually improving. Baseline is 1.2. his is improving. he continues to have good urine output. CPK is also trending down. -He did have hypokalemia this morning, so that was replaced IV. Phosphorus is also low, so will be replaced orally. -CT scan shows a renal mass. The patient would not likely tolerate IV dye at this time, but we may be able to do that once his creatinine is back to normal. We could not do the MRI, due to his size.. #5.Ruben knee abrasions, right toe contusion: ruben bacitracin ointment, wound care #6.DVT hep sq #7.Full code #8. Pulmonary. -the patient has required oxygen at times, but this is improved today. He has been receiving aggressive IV fluids, but did seem to improve after IV Lasix . He no longer reports dyspnea. We are giving him Lasix 1-2 times a day, to try to keep him from developing volume overload again. Hypoxemia is also likely due to significant obesity. Patient also has obstructive sleep apnea. #9. GI. Mildly elevated LFTs. These are tending to have her at the current level. I suspect this is due to passive liver congestion related to his volume overload. -patient has had bright red blood per rectum, as well as diarrhea. C. difficile screen was negative. He may be having some antibiotic associated diarrhea. He also has known hemorrhoids. Continue to monitor hemoglobin. He reports he had a colonoscopy about 12 years ago that was normal. Disposition: He can be transferred out of the ICU today. He is encouraged to continue working with physical therapy on strengthening. so far today, this visit has taken approximately 30 minutes, including overnight issues, review of test results, interview and exam of the patient, discussion with nursing staff and his . Medical - PN: Qual - VTE Deep Vein Thrombosis/Pulmonary Embolism Present on Admission: No
[2016-08-10] MEDS ORDERED: NALOXONE HCL 0.4 MG/ML VIAL IV PRN (12:26)
[2016-08-10] MEDS ORDERED: ALBUTEROL SULFATE 2.5 MG/3 ML NEBULIZER NEB PRN (12:26)
[2016-08-10] MEDS ORDERED: ONDANSETRON 4 MG/2 ML VIAL IV PRN (12:26)
[2016-08-10] MEDS ORDERED: VANCOMYCIN PER PHARMACY IV SCH (12:26)
[2016-08-10] MEDS ORDERED: MAGNESIUM HYDROXIDE 30 ML ORAL.SUSP PO PRN (12:26)
[2016-08-10] MEDS ORDERED: FUROSEMIDE 20 MG/2 ML VIAL IV PRN (12:26)
[2016-08-10] MEDS ORDERED: HYDROCORTISONE ACETATE 25 MG SUPP.RECT PR PRN (12:26)
[2016-08-10] MEDS ORDERED: HYDROmorphone 2 MG/ML SYRINGE IV PRN (12:26)
[2016-08-10] MEDS: NACL 0.9% W/KCL 20MEQ 1,000 ML IV SCH (12:29)
--- NOTE | 2016-08-10 14:53 | General Surgery Progress Note ---
Subjective Patient reports: feels better, tolerating a regular diet, bowel movement, afebrile, other (Right leg dressing changed earlier. Patient is doing well overall. Has scattered clear fluid filled blisters involving epidermal area,) Narrative: Note initiated : 08/10/16 at 2:44 pm Service Date, if different from initiated Date: [] Patient: Sharif David 75 y/o M admitted on 08/05/16 for Cellulitis&Abscess of Rt Leg/Abrasion/Dehydration. Chief Complaint: [] Objective Temp Pulse Resp BP Pulse Ox 99.2 F H 73 16 138/62 93 08/10/16 11:46 08/10/16 07:09 08/10/16 11:46 08/10/16 11:46 08/10/16 11:46 AAOx 3 I had a clear and lucid conversation with the patient in the patietn of Nursing staff and patient's . He has antegrade amnesia as to why he was down on floor and when happened immediately afterwards. But currently in his USOH. LUCID, Coherent , Conversational, Cooperative AAOX 3 in NO cardio respiratory distress. HD stable. Conversational. Clean dressings right leg. His was present during interview of patient. Normal sinus tracing on EKG, O2 sats. Clear chest, soft abdomen and Black catcher urine is clear. Lab results reviewed. - Additional Data Intake & Output - Last 24 hours: Intake & Output 08/08/16 08/09/16 08/10/16 08/11/16 05:59 05:59 05:59 05:59 Intake Total 3610 / 3610 6690 / 6690 3290 / 3290 1150 / 1150 Output Total 1979 / 1979 3133 / 3133 4650 / 4650 Balance 1630 / 1630 3557 / 3557 -1360 / -1360 1150 / 1150 Weight 295 lb 290 lb 295 lb 8 oz - Labs 08/10/16 04:08 08/10/16 04:08 Diabetes panel 08/10/16 Range/Units 04:08 Sodium 140 (133-145) mmol/L Potassium 3.2 L (3.3-5.1) mmol/L Chloride 103 (96-108) mmol/L Carbon Dioxide 23 (22-30) mmol/L BUN 15 (8-23) mg/dl Creatinine 1.3 H (0.7-1.2) mg/dl Glucose 119 H (70-105) mg/dL Calcium 8.5 L (8.6-10.4) mg/dl AST 114 H (0-37) U/l ALT 82 H (0-40) U/l Alkaline Phosphatase 112 (39-117) U/L Total Protein 6.5 (5.9-8.4) gm/dL Albumin 2.7 L (3.2-5.2) gm/dL Triglycerides 108 (<150) mg/dl Calcium panel 08/10/16 Range/Units 04:08 Calcium 8.5 L (8.6-10.4) mg/dl Phosphorus 2.0 L (2.7-4.5) mg/dL Albumin 2.7 L (3.2-5.2) gm/dL Pituitary panel 08/10/16 Range/Units 04:08 Sodium 140 (133-145) mmol/L Potassium 3.2 L (3.3-5.1) mmol/L Chloride 103 (96-108) mmol/L Carbon Dioxide 23 (22-30) mmol/L BUN 15 (8-23) mg/dl Creatinine 1.3 H (0.7-1.2) mg/dl Glucose 119 H (70-105) mg/dL Calcium 8.5 L (8.6-10.4) mg/dl Adrenal panel 08/10/16 Range/Units 04:08 Sodium 140 (133-145) mmol/L Potassium 3.2 L (3.3-5.1) mmol/L Chloride 103 (96-108) mmol/L Carbon Dioxide 23 (22-30) mmol/L BUN 15 (8-23) mg/dl Creatinine 1.3 H (0.7-1.2) mg/dl Glucose 119 H (70-105) mg/dL Calcium 8.5 L (8.6-10.4) mg/dl Total Bilirubin 0.9 (0.0-1.0) mg/dL AST 114 H (0-37) U/l ALT 82 H (0-40) U/l Alkaline Phosphatase 112 (39-117) U/L Total Protein 6.5 (5.9-8.4) gm/dL Albumin 2.7 L (3.2-5.2) gm/dL Assessment and Plan (1) Abrasion Problem details: Stable and improving well from wound care point of view. Will check wound tomorrow at 08AM along with nursing staff. Status: Acute Current Visit: Yes (2) Rhabdomyolysis Status: Acute Current Visit: Yes - Time Spent With Patient Total time spent is greater than 50% in coordination of care (as documented) at patient's floor/unit and/or counseling patient: 15 - 24 minutes
[2016-08-10] MEDS: VANCOMYCIN 1,500 MG in 0.9 % SODIUM CHLORIDE 500 ML IV SCH (16:16)
[2016-08-10] MEDS ORDERED: FUROSEMIDE 20 MG/2 ML VIAL IV ONE ×2 (18:35→19:50)
[2016-08-10] MEDS: NEUTRA PHOS 1 PACKET PO SCH (20:34)
[2016-08-10] MEDS ORDERED: SENNOSIDES 1 TABLET PO PRN (21:00)
[2016-08-11] MEDS: NACL 0.9% W/KCL 20MEQ 1,000 ML IV SCH ×3 (03:39→23:25)
[2016-08-11] MEDS: 0.9 % SODIUM CHLORIDE 10 ML SYRINGE IV SCH ×3 (05:34→21:34)
[2016-08-11] MEDS: PIPERACILLIN SODIUM/TAZOBACTAM 3.375 GM in DEXTROSE 5% IN WATER 50 ML IV SCH ×3 (05:34→21:33)
[2016-08-11 06:19] LABS: Basophils # (Auto) 0 K/mcL (0.0-0.3); Basophils % (Auto) 0.4 % (0.0-2.0); Eosinophils # (Auto) 0.4 K/mcL (0.0-0.7); Eosinophils % (Auto) 3.7 % (0.0-7.0); Granulocytes % (Auto) 73.4 % (38.0-78.0); Lymphocytes # (Auto) 1.7 K/mcL (1.5-4.8); Lymphocytes % (Auto) 17.2 % (15.5-49.0); Mean Cell Volume 98.5 fL (80.0-100.0); Mean Corpuscular HGB Conc 33.7 g/dL (31.0-36.0); Mean Corpuscular Hemoglobin 33.2 pg (26.0-34.0); Monocytes # (Auto) 0.5 K/mcL (0.1-0.9); Monocytes % (Auto) 5.3 % (1.0-12.0); Platelet Count 237 K/mcL (140-440); RBC 3.44 M/mcL (4.50-5.90); Red Cell Distribution Width 13.6 % (11.5-14.5)
[2016-08-11 06:49] LABS: ALT/SGPT 75 U/l (0-40); Albumin 2.6 gm/dL (3.2-5.2); Albumin/Globulin Ratio 0.7 (1.0-2.3); Alkaline Phosphatase 116 U/L (39-117); Bilirubin,Direct 0.2 mg/dL (0.0-0.3); Blood Urea Nitrogen 14 mg/dl (8-23); Creatine Kinase 919 IU/L (24-195); Gamma Glutamyl Transpeptidase 107 U/L (8-61); Magnesium 1.8 mg/dL (1.6-2.5); Uric Acid 3.9 mg/dL (2.5-8.0)
[2016-08-11] MEDS ORDERED: LORazepam 2 MG/ML VIAL IV ONE (07:26)
[2016-08-11] MEDS ORDERED: LEVOFLOXACIN 500 MG/100 ML BAG IV SCH (09:00)
[2016-08-11] MEDS: NEUTRA PHOS 1 PACKET PO SCH ×2 (09:30→21:33)
[2016-08-11] MEDS: METOPROLOL TARTRATE 25 MG TABLET PO SCH ×2 (09:30→21:33)
[2016-08-11] MEDS: SILVER SULFADIAZINE CREAM.TOP 25GM TOPICAL SCH (09:31)
[2016-08-11] MEDS: CLOPIDOGREL 75 MG TABLET PO SCH (09:31)
[2016-08-11] MEDS: GABAPENTIN 300 MG CAPSULE PO SCH ×2 (09:31→21:33)
[2016-08-11] MEDS: ASPIRIN 325 MG ENTERIC COATED TABLET PO SCH (09:31)
[2016-08-11] MEDS: ALLOPURINOL 300 MG TABLET PO SCH (09:32)
--- NOTE | 2016-08-11 10:26 | Internal Med Progress Note ---
Medical - PN: Subj Patient information: Note initiated : 08/11/16 at 10:26 am patient: Sharif David a 75 y/o M admitted on 08/05/16 for Cellulitis&Abscess of Rt Leg/Abrasion/Dehydration. Interval history: August 05, 2016: History of present illness: Mr. David is a 75 year old M with h/o cad, neuropathy, presented to the ER after weakness in both his lower extremities since AM The patient reports he was ok yesterday, had mowed his lawn (self propelled) and may have not drank enough fluids, he was ok in the evening when he went to bed. He had one episode of chills and rigors at night. He woke up early in night and noted that he was weak and dizzy, when he tried to go to the bathroom. He woke up again around 4 and noted he did not have much strength in his legs, very tired and fatigued, unable to get up from the bathroom floor, he crawled his way to the bedroom, and scraped and injured his lower legs, he did not get better after few hrs and aft er the insistence of his grandson he called 911. The patient in the ER was noted to have elevated wbc count, high lactate, and renal failure, possible redness in the right leg, ua positive for blood and CK Rasied to 3600, admitted to the hospital for same. The patient denies any loss of bowel bladder function, no loss of sensation, only weakness bilaterally, able to move both legs. no trauma to the back. he is usually short of breath when he does more than usual activity at baseline , but denies any h/o COPD. 08/06: Patient seen examined, no acute overnight events, he feels much better, he had temp of 103, overnight, his labs reviewed, lactic acid is now normal, but his CK climbed to 13K, Patient cellutlitis has remained stable. Will get x ray ankle. august 07: this patient was admitted after a fall, and reported fever and chills. He presented with acute rhabdomyolysis leukocytosis, lactic acidosis and apparent right lower extremity cellulitis, as well as bilateral knee abrasions. he has continued to have fever spikes, with a temperature as high as 104 last night. yesterday evening, he had an episode of diarrhea, and got out of bed to get cleaned up. His nurse noted he became extremely short of breath and tachypnea That time. The patient reported that he always has mild dyspnea with exertion, but that this was worse than usual. He denied any associated chest pain or palpitations, but his nurse noted that he had much more ectopy on his monitoring specialist, with frequent PVCs and occasional bigeminy, and some change and waveforms. Follow-up EKG showed sinus rhythm with frequent ectopy. Follow-up testing did show that he bumped his troponin to 0.06 and BNP was elevated at 1456. Blood gas showed moderate hypoxemia but no CO2 retention and normal pH. Chest CT was ordered last night, without contrast due to renal function, and shows a small left lower lobe infiltrate, and small bilateral pleural effusions , heavy coronary, as well as a small solitary stone in the gallbladder neck, and a 3.5 cm mass in the left kidney, worrisome for renal cell carcinoma. This morning, the patient says he is feeling better. He says shortness of breath is much improved. He denies any chest pain or palpitations. He has been having some bright red blood per rectum, and in addition to loose stools and notes he does have hemorrhoids. He does not feel feverish this morning, and denies chills. He denies chest pain or palpitations, abdominal pain, nausea or vomiting. Black catheter remains in place. He feels his right lower extremity is less red, less tender, less swollen today. August 08: today, the patient says he is feeling better. However this morning he started to have abdominal discomfort.he also had mild nausea. He was to have an MRI, so the nurse pulled his Black catheter with a temperature probe, out. She noted the end to be very crusted over and rather sharp. The patient then developed gross hematuria. Initially his abdominal discomfort improved, then it recurred then he passed more blood clots, and then the pain resolved again. he notes he is no longer having fever or chills. he denies sore throat or cough , chest pain or palpitations. His dyspnea with exertion and seems quite a bit improved. He denies vomiting, diarrhea, constipation. August 09: The patient notes he is feeling quite a bit better today. He did request to have his Black put back in yesterday, because he was having a lot of burning with urination. He is otherwise comfortable today. He denies fever or chills, sore throat or cough, chest pain or palpitations, abdominal pain, nausea or vomiting. His stools continue to be rather loose. August 10: Today, the patient continues to say that he is feeling better. His breathing is better. His leg seems a little bit less swollen. He denies fever chills, chest pain or palpitations, significant shortness of breath, abdominal pain, nausea or vomiting. Stools continue to be loose. Black catheter remains in place, at patient's request, for comfort. He is continuing on IV fluids and has significant urine output. -He continues to spike low-grade temperatures, with the last being 100.4. He has good urine output, but remains significantly positive on intake and output. CK continues to decline. -I believe he walked a little with physical therapy today, and says he understands that he needs to work on strengthening, prior to consideration of going home. August 11: Today, patient notes he is feeling better still. When I first saw him today, Dr. Michelle was cleansing and debriding his right lower leg. The patient has epidermal lysis, so is shedding his epidermis. The skin underneath is bright pink, but does look better and less angry, then skin looked a couple of days ago. The patient denies fever chills, headaches or dizziness, chest pain or shortness of breath, GI symptoms. He still has a Lback catheter in place. -Renal function is probably back to baseline. CPK is still elevated at over 900. Urine output has been consistently good. He is quite forehead on intake over output. -He continues to have low-grade temperature spikes, but overall the trend is downward. - Constitutional Vitals: Vital Signs Temp Pulse Resp BP Pulse Ox 99.1 F H 67 16 142/67 97 08/11/16 04:08 08/11/16 04:08 08/11/16 04:08 08/11/16 04:08 08/11/16 07:06 Period Temp Pulse Resp BP Sys/Romero Pulse Ox Last 24 Hr 98.5 F-100.4 F 67-72 16-18 138-158/61-74 93-99 Intake and Output 08/10/16 08/11/1617 21:59 05:59 13:59 Intake Total 1070 / 1070 50 / 50 50 / 50 Output Total 1725 / 1725 Balance -655 / -655 50 / 50 50 / 50 Weight 285 lb 8 oz Intake & Output: Intake & Output 08/10/16 08/11/16 08/11/16 21:59 05:59 13:59 Intake Total 1070 / 1070 50 / 50 50 / 50 Output Total 1725 / 1725 Balance -655 / -655 50 / 50 50 / 50 Weight 285 lb 8 oz Intake: IV 1070 / 1070 50 / 50 50 / 50 Zosyn 3.375 gm In 50 / 50 50 / 50 50 / 50 Dextrose 5% in Water 50 ml @ 100 mls/hr IV Q8H TOM[facility] Rx#:[id number] Vancomycin 1,500 mg In 500 / 500 Sodium Chloride 0.9% 500 ml @ 333.3 mls/hr IV Q24H TOMMY Rx#:[id number] Output: Urine Catheter Amount 1725 / 1725 Other: Meal Dinner Percent of Meal Consumed 100% Feeding Ability Independent Current blood pressure 170/69 On exam, he is in no acute distress. Neck is supple without obvious JVD. Cardiac exam shows regular rate and rhythm, with normal S1 and S2. Lungs: Are essentially clear to auscultation, without obvious rales, rhonchi, wheezes. Abdomen is quite protuberant, but soft and nontender. Extremities: Right arm is a bit puffy today, and that is the arm that has his IV, that has been there since he was admitted on August 05. He has been reluctant to have that changed, as he is a very difficult stick and they had a hard time getting that into hand is particularly swollen, but we note that his ID band is a little bit snug at the wrist as well. Left leg is somewhat puffy. Right lower extremity below the knee is diffusely swollen with erythema and edema. Skin is sloughing off, especially at the sites of previous blisters. There is significant fluid weeping from the leg. Overall leg is probably less red and less tender than previously. Neurologic exam: Is grossly nonfocal. Medical - PN: Obj Da - Labs CBC & Chem 7: 08/11/16 03:45 08/11/16 03:45 Labs: Abnormal Lab Results 08/11/16 08/11/16 08/10/16 03:45 03:45 04:08 RBC 3.44 L Hgb 11.4 L Hct 33.9 L Plt Count Gran % Lymph % (Auto) Gran # Lymph # (Auto) Potassium 3.2 L Carbon Dioxide Creatinine 1.3 H 1.3 H Glucose 119 H Calcium 8.3 L 8.5 L Phosphorus 2.0 L Total Bilirubin GGT 107 H 108 H AST 88 H 114 H ALT 75 H 82 H Lactate Dehydrogenase 267 H 273 H Total Creatine Kinase 919 H 1608 H Albumin 2.6 L 2.7 L Globulin 3.8 H Albumin/Globulin Ratio 0.7 L 0.7 L 08/10/16 08/09/16 08/09/16 04:08 04:04 04:04 RBC 3.66 L 4.08 L Hgb 12.1 L 13.1 L Hct 36.0 L 39.0 L Plt Count 133 L Gran % 80.5 H Lymph % (Auto) 11.9 L 14.1 L Gran # 8.7 H 8.3 H Lymph # (Auto) 1.3 L Potassium Carbon Dioxide 21 L Creatinine 1.3 H Glucose Calcium 8.1 L Phosphorus 2.2 L Total Bilirubin 1.1 H GGT 97 H AST 163 H ALT 93 H Lactate Dehydrogenase 377 H Total Creatine Kinase 3174 H Albumin 2.9 L Globulin Albumin/Globulin Ratio august 11: CT IVP: Pending. august 08: -right lower extremity Doppler shows no evidence of DVT. Right knee wound culture is being read as negative. august 07: echocardiogram report shows mild four-chamber enlargement. Left ventricular ejection fraction 50%. there is aortic root sclerosis. There is mild mitral regurgitation. -eKG from this morning shows normal sinus rhythm at a rate of 80, with frequent PVCs. August 06: -C. difficile screen is negative. -ABG on a 4.5 L O2 mask: PH 7.44 PCO2 27, PO2 70, bicarbonate 18, O2 saturation 94% -CT of the chest: Shows a small patchy left lower lobe infiltrate with small bilateral pleural effusions. Extremely heavy atherosclerotic calcification of all coronary arteries. Small pericardial effusion. 19 mm solitary stone in the gallbladder neck. 3.5 cm low attenuation lesion in the mid left kidney with an 18 mm satellite lesion in the perinephric fat. August 05: -Urine culture is negative. -blood cultures are negative . August 04: MRSA screen is negative. Meds: Medications Acetaminophen (Tylenol) 650 mg PO Q4-6HP PRN PRN Reason: PAIN/FEVER > 101 Last Admin: 08/10/16 23:41 Dose: 650 mg Albuterol Sulfate (Ventolin) 2.5 mg NEB Q2HP PRN PRN Reason: Shortness Of Breath Allopurinol (Zylopriim) 300 mg PO DAILY [facility] Last Admin: 08/11/16 09:32 Dose: Not Given Aspirin (Ecotrin) 325 mg PO DAILY [facility] Last Admin: 08/11/16 09:31 Dose: 325 mg Clopidogrel Bisulfate (Plavix) 75 mg PO DAILY [facility] Last Admin: 08/11/16 09:31 Dose: 75 mg Furosemide (Lasix) 20 mg IV BIDP PRN PRN Reason: Shortness Of Breath Gabapentin (Neurontin) 300 mg PO BID [facility] Last Admin: 08/11/16 09:31 Dose: 300 mg Hydrocortisone Acetate (Anusol Hc) 25 mg TN BIDP PRN PRN Reason: Hemorrhoids Hydromorphone HCl (Dilaudid) 0.5 mg IV Q2HP PRN PRN Reason: Pain Potassium Chloride/Sodium Chloride (Nacl 0.9% W/Kcl 20meq 1000ml) 1,000 mls @ 75 mls/hr IV .[id number] [facility] Last Admin: 08/11/16 03:39 Dose: 75 mls/hr Piperacillin Sod/Tazobactam (Sod 3.375 gm/ Dextrose) 50 mls @ 100 mls/hr IV Q8H [facility] Last Infusion: 08/11/16 06:17 Dose: Infused Vancomycin HCl 1,500 mg/ (Sodium Chloride) 500 mls @ 333.3 mls/hr IV Q24H [facility] Last Infusion: 08/10/16 18:30 Dose: Infused Magnesium Hydroxide (Milk Of Magnesia) 30 ml PO DAILYP PRN PRN Reason: Constipation Metoprolol Tartrate (Lopressor) 50 mg PO BID [facility] Last Admin: 08/11/16 09:30 Dose: 50 mg Naloxone HCl (Narcan) 0.1 mg IV Q2MIN PRN PRN Reason: Opiate Reversal Ondansetron HCl (Zofran) 4 mg IV Q4-6HP PRN PRN Reason: Nausea And Vomiting Potassium/Phosphorus/Sodium (Neutra Phos) 2 packet PO BID [facility] Last Admin: 08/11/16 09:30 Dose: 2 packet Senna (Senokot) 1 tab PO HSP PRN PRN Reason: Constipation Silver Sulfadiazine (Silvadene) 1 dose TOPICAL DAILY [facility] Last Admin: 08/11/16 09:31 Dose: 1 dose Sodium Chloride (Saline Flush) 10 ml IV Q8 [facility] Last Admin: 08/11/16 05:34 Dose: Not Given Vancomycin HCl (Vancomycin Per Pharmacy) 1 order IV UD [facility] Medical - PN: A/P - Time Spent With Patient Total time spent is greater than 50% in coordination of care (as documented) at patient's floor/unit and/or counseling patient: 25 - 35 minutes - Narrative A/P Narrative: #1.Severe sepsis/infectious disease. - improving, bp stable, lactic acid now back to normal. however, the patient continues to spike fevers. he has an apparent right lower extremity cellulitis, and possible early pneumonia. It is unclear however, why he continues to spike fevers. he continues on Zosyn and vancomycin. blood cultures are negative so far. he does not appear to have a UTI. He does have cholelithiasis,but CT did not suggest cholecystitis. -His right lower leg cellulitis may indeed be the source. -He does have large calluses on his feet, and a cracked callus may be the source of his infection. We will have him follow-up with podiatry. -White blood cell count and granulocyte count are finally back down to normal. He still has occasional low-grade temps, but the overall trend is downward. I will stop his Levaquin today, but continue vancomycin and Zosyn, as he still has skin sloughing and a lot of oozing from his right lower leg. There is still the possibility that his renal mass is contributing to fevers. - He has a small pericardial effusion, so we will need to keep that in mind as a possible source. - Dr. Michelle is now following as well. He cleansed and debrided the leg today, and remove some of the sloughing skin. We will continue with daily wound care for now. He says the skin injury is the equivalent of a third- degree burn. #2. Cardiac. -This patient has known coronary disease, and has had dyspnea . Troponin was mildly positive, but echocardiogram, is reassuring. EKG does not show obvious ischemia. Vital signs have otherwise been stable .We will continue with aspirin, and I did add Plavix . Also, it appears he was taking atenolol at home so I added Lopressor. it does not appear that he had any significant cardiac insult, but does have underlying coronary disease. Both troponin and BNP may have been more elevated than they otherwise would be , due to renal dysfunction.(-BNP was elevated, so patient was given IV Lasix, regarding dyspnea. LVEF on echo looks fine. -he does take meloxicam at home, and I would avoid this in this patient with known coronary disease.) #3.HTN: -BP stable- apparently atenolol was held on admission, for hypotension. Lopressor was added in view of likely underlying ischemia. He is tolerating this well. #4.renal. -Acute Kidney Injury - - due to sepsis and rhabdomyolysis. creatinine is gradually improving. Baseline is 1.2. this is improving. he continues to have good urine output. CPK is also trending down. -He did have hypokalemia , so that was replaced IV. Phosphorus is also low, so is being replaced orally. -CT scan shows a renal mass. -He did have a CT IVP today. Results are pending. #5.Ruben knee abrasions, right toe contusion: ruben bacitracin ointment, wound care #6.DVT hep sq #7.Full code #8. Pulmonary. -the patient has required oxygen at times, but this is improved today. He has been receiving aggressive IV fluids, but did seem to improve after IV Lasix . He no longer reports dyspnea. We are giving him Lasix 1-2 times a day, to try to keep him from developing volume overload again. Hypoxemia is also likely due to significant obesity. Patient also has obstructive sleep apnea. #9. GI. Mildly elevated LFTs. Improving. I suspect this is due to passive liver congestion related to his volume overload. -patient has had bright red blood per rectum, as well as diarrhea. C. difficile screen was negative. He may be having some antibiotic associated diarrhea. He also has known hemorrhoids. Continue to monitor hemoglobin. He reports he had a colonoscopy about 12 years ago that was normal. Disposition: He is encouraged to continue working with physical therapy on strengthening. so far today, this visit has taken approximately 30 minutes, review of test results, interview and exam of the patient, discussion with nursing staff and Dr. Michelle.. Medical - PN: Qual - VTE Deep Vein Thrombosis/Pulmonary Embolism Present on Admission: No
[2016-08-11] MEDS ORDERED: IOPAMIDOL 150 ML BOTTLE IV ONE (11:27)
--- NOTE | 2016-08-11 14:29 | Brief Operative Note ---
Date of procedure: 08/11/16 Pre-op diagnosis: Non Healing wound RT leg 3 rd degree frictioN skin injury. Rhabdomyolysis Post-op diagnosis: same Procedure: BEDSIDE Excisional Debridement. Debrided AREA 20 X 10 X 0.5 cm Anterior medial and lateral leg. Anesthesia: GETA, none Findings: Skin blisters and slough with EPIDERMOLYSIS. Complications: none Surgeon: Ar Michelle Estimated blood loss (cc): 0 Specimens Removed/Pathology: none sent Condition: stable Disposition: ICU (Procedure well tolerated.)
--- NOTE | 2016-08-11 14:36 | General Surgery Progress Note ---
Subjective Patient reports: other (Gradual improvement with rhabdomyolysis . Renal functions improving. Skin blisters over anterior leg and church area RIGHT. Total 5 % BSA) Narrative: Note initiated : 08/11/16 at 2:31 pm Service Date, if different from initiated Date: [] Patient: Sharif David 75 y/o M admitted on 08/05/16 for Cellulitis&Abscess of Rt Leg/Abrasion/Dehydration. Chief Complaint: [] Objective Temp Pulse Resp BP Pulse Ox 98.3 F 71 22 170/69 97 08/11/16 12:00 08/11/16 12:00 08/11/16 12:00 08/11/16 12:00 08/11/16 12:00 AVSS, BUCK No acute changes. Chest CTA. Abdomen soft NT. [employer] Normal Exam. Both UE and LLE NO acute findings. L/E: Epidermolysis with wound surfacre covered over 90 % with scattered bio film, and clear or straw colored multiple blisters between 2 to 4 CM size, RIGHT leg - Additional Data Intake & Output - Last 24 hours: Intake & Output 08/09/16 08/10/16 08/11/16 08/12/16 05:59 05:59 05:59 05:59 Intake Total 6690 / 6690 3290 / 3290 2270 / 2270 440 / 440 Output Total 3133 / 3133 4650 / 4650 1725 / 1725 Balance 3557 / 3557 -1360 / -1360 545 / 545 440 / 440 Weight 290 lb 295 lb 8 oz 285 lb 8 oz 285 lb 8 oz - Labs 08/11/16 03:45 08/11/16 03:45 Diabetes panel 08/11/16 Range/Units 03:45 Sodium 141 (133-145) mmol/L Potassium 3.4 (3.3-5.1) mmol/L Chloride 101 (96-108) mmol/L Carbon Dioxide 25 (22-30) mmol/L BUN 14 (8-23) mg/dl Creatinine 1.3 H (0.7-1.2) mg/dl Glucose 84 (70-105) mg/dL Calcium 8.3 L (8.6-10.4) mg/dl AST 88 H (0-37) U/l ALT 75 H (0-40) U/l Alkaline Phosphatase 116 (39-117) U/L Total Protein 6.3 (5.9-8.4) gm/dL Albumin 2.6 L (3.2-5.2) gm/dL Triglycerides 125 (<150) mg/dl Calcium panel 08/11/16 Range/Units 03:45 Calcium 8.3 L (8.6-10.4) mg/dl Phosphorus 3.0 (2.7-4.5) mg/dL Albumin 2.6 L (3.2-5.2) gm/dL Pituitary panel 08/11/16 Range/Units 03:45 Sodium 141 (133-145) mmol/L Potassium 3.4 (3.3-5.1) mmol/L Chloride 101 (96-108) mmol/L Carbon Dioxide 25 (22-30) mmol/L BUN 14 (8-23) mg/dl Creatinine 1.3 H (0.7-1.2) mg/dl Glucose 84 (70-105) mg/dL Calcium 8.3 L (8.6-10.4) mg/dl Adrenal panel 08/11/16 Range/Units 03:45 Sodium 141 (133-145) mmol/L Potassium 3.4 (3.3-5.1) mmol/L Chloride 101 (96-108) mmol/L Carbon Dioxide 25 (22-30) mmol/L BUN 14 (8-23) mg/dl Creatinine 1.3 H (0.7-1.2) mg/dl Glucose 84 (70-105) mg/dL Calcium 8.3 L (8.6-10.4) mg/dl Total Bilirubin 0.9 (0.0-1.0) mg/dL AST 88 H (0-37) U/l ALT 75 H (0-40) U/l Alkaline Phosphatase 116 (39-117) U/L Total Protein 6.3 (5.9-8.4) gm/dL Albumin 2.6 L (3.2-5.2) gm/dL Assessment and Plan (1) Abrasion Problem details: Stable and improving well from wound care point of view. Will check wound tomorrow at 08AM along with nursing staff. Status: Acute Assessment and plan: Wound surface covered with biofilm and multiple blisters with clear fluid or straw colored fluid; plan : BEDSIDE non selective debridement. Spoke with the patient at length. Explained about plan of care i.e. Bedside debridement and change of dressing. In formed verbal consent was obtained. Procedure was carried out uneventfully. Will continue current treatment. Additionally start MIST treatments and daily dressing changes and PHYSICAL THERAPY consult for early ambulation. ANTICIPATE that patient will be able to go home to an [facility] in a week or so and f.u at the wound clinic. Current Visit: Yes (2) Rhabdomyolysis Status: Acute Current Visit: Yes - Time Spent With Patient Total time spent is greater than 50% in coordination of care (as documented) at patient's floor/unit and/or counseling patient: 25 - 35 minutes
[2016-08-11] MEDS: ACETAMINOPHEN 325 MG TABLET PO PRN (15:11)
[2016-08-11] MEDS: VANCOMYCIN 1,500 MG in 0.9 % SODIUM CHLORIDE 500 ML IV SCH (18:15)
[2016-08-12] MEDS: NACL 0.9% W/KCL 20MEQ 1,000 ML IV SCH ×2 (03:26→13:41)
[2016-08-12] MEDS: PIPERACILLIN SODIUM/TAZOBACTAM 3.375 GM in DEXTROSE 5% IN WATER 50 ML IV SCH ×3 (05:48→21:14)
[2016-08-12] MEDS: 0.9 % SODIUM CHLORIDE 10 ML SYRINGE IV SCH ×3 (05:49→21:14)
[2016-08-12] MEDS ORDERED: FUROSEMIDE 20 MG/2 ML VIAL IV ONE ×2 (07:25→16:35)
[2016-08-12 08:13] LABS: Basophils # (Auto) 0 K/mcL (0.0-0.3); Basophils % (Auto) 0.4 % (0.0-2.0); Eosinophils # (Auto) 0.4 K/mcL (0.0-0.7); Eosinophils % (Auto) 4.4 % (0.0-7.0); Granulocytes % (Auto) 73.4 % (38.0-78.0); Lymphocytes # (Auto) 1.5 K/mcL (1.5-4.8); Lymphocytes % (Auto) 16.3 % (15.5-49.0); Mean Cell Volume 97.3 fL (80.0-100.0); Mean Corpuscular HGB Conc 34.2 g/dL (31.0-36.0); Mean Corpuscular Hemoglobin 33.3 pg (26.0-34.0); Monocytes # (Auto) 0.5 K/mcL (0.1-0.9); Monocytes % (Auto) 5.5 % (1.0-12.0); Platelet Count 294 K/mcL (140-440); RBC 3.49 M/mcL (4.50-5.90); Red Cell Distribution Width 13.6 % (11.5-14.5)
[2016-08-12] MEDS: METOPROLOL TARTRATE 25 MG TABLET PO SCH ×2 (08:35→21:13)
[2016-08-12] MEDS: CLOPIDOGREL 75 MG TABLET PO SCH (08:35)
[2016-08-12] MEDS: GABAPENTIN 300 MG CAPSULE PO SCH ×2 (08:35→21:13)
[2016-08-12] MEDS: ASPIRIN 325 MG ENTERIC COATED TABLET PO SCH (08:36)
[2016-08-12] MEDS: ALLOPURINOL 300 MG TABLET PO SCH (08:36)
[2016-08-12] MEDS: NEUTRA PHOS 1 PACKET PO SCH ×2 (08:36→21:14)
--- NOTE | 2016-08-12 09:35 | Cat Scan Report ---
CT IVP CLINICAL INFORMATION: Renal mass and fevers COMPARISON: 10/06/[address] TECHNIQUE: 2.5 mm precontrast images were obtained through the kidneys. 60 cc of Isovue-300 were then injected intravenously. Four minutes later 40 cc of Optiray 320 was reinjected and 7 minutes later , 2.5 mm helical slices were obtained from the mid heart through the subtrochanteric regions of the femurs. Following reconstruction, 2.5 mm sagittal, coronal and axial reformatted images were obtained through the entire abdomen. Reformatted images were obtained through the sagittal and coronal planes of each individual kidney. FINDINGS: Both kidneys are normal and symmetric in size, position and configuration: The left is 13 x 6 cm and the right is 12.5 x 5.5 cm. There are scattered simple cysts in both kidneys: the two largest are 4.3 cm in the lateral cortex inferior pole the left kidney and 3.6 cm in the superior pole of the left kidney. These show moderate interval increase in size. There is no stone, hydronephrosis or solid lesion. The upper collecting systems, and ureters are unremarkable. Black catheter is in proper position within the urinary bladder with bladder decompression. No gross bladder lesions evident. Images should the lower chest show small pericardial effusion anteriorly which is new. The visualized heart is mildly enlarged. There is minimal scarring or atelectasis in the posterior lower lobe regions. No pleural effusions. Images through the abdomen show a new 22 mm vague soft tissue attenuation lesion within the gallbladder neck. This may represent a cholesterol stone, polyp or focal sludge. The remainder of the gallbladder and bile ducts are normal CBD is 5 mm. The liver is unremarkable. Both adrenal glands, spleen, pancreas and aorta including aortic branches are unremarkable. There is no free air, free fluid and no adenopathy. There is mild inflammatory changes in the periduodenal and kylah hepatis regions] The stomach, small bowel and colon are grossly normal. Bone windows show degenerative change in lumbar spine which are little changed. IMPRESSION: 1. Simple cysts in both kidneys. There is no significant abnormality seen in either kidney, upper collecting system ureter or urinary bladder. 2. 22 mm soft tissue lesion in the gallbladder neck new from previous study. Polyp versus cholesterol stone versus focal sludge. There is a very mild injection of the fat within the kylah hepatis and periduodenal region suggesting inflammation in this region. Please correlate with right upper quadrant pain. Consider limited gallbladder ultrasound to evaluate the gallbladder neck lesion. 3. Small pericardial effusion - new from the 2005 study 4. Inflammatory stranding in the retroperitoneal region of the pelvis - etiology and significance unknown. The adjacent structures appear unremarkable Interpreted and Authenticated by: Olaf Montez 08/12/16
[2016-08-12 09:55] LABS: ALT/SGPT 69 U/l (0-40); Albumin 2.7 gm/dL (3.2-5.2); Albumin/Globulin Ratio 0.7 (1.0-2.3); Alkaline Phosphatase 114 U/L (39-117); Bilirubin,Direct < 0.2 mg/dL (0.0-0.3); Blood Urea Nitrogen 14 mg/dl (8-23); Creatine Kinase 604 IU/L (24-195); Gamma Glutamyl Transpeptidase 112 U/L (8-61); Magnesium 1.9 mg/dL (1.6-2.5); Uric Acid 4.1 mg/dL (2.5-8.0)
[2016-08-12] MEDS: SILVER SULFADIAZINE CREAM.TOP 25GM TOPICAL SCH (11:36)
[2016-08-12] MEDS: ACETAMINOPHEN 325 MG TABLET PO PRN ×2 (12:28→22:27)
[2016-08-12] MEDS: VANCOMYCIN 1,500 MG in 0.9 % SODIUM CHLORIDE 500 ML IV SCH (16:32)
--- NOTE | 2016-08-12 17:32 | Internal Med Progress Note ---
Medical - PN: Subj Patient information: Note initiated : 08/12/16 at 5:18 pm Patient: Sharif David a 75 y/o M admitted on 08/05/16 for Cellulitis&Abscess of Rt Leg/Abrasion/Dehydration. Interval history: August 05, 2016: History of present illness: Mr. David is a 75 year old M with h/o cad, neuropathy, presented to the ER after weakness in both his lower extremities since AM The patient reports he was ok yesterday, had mowed his lawn (self propelled) and may have not drank enough fluids, he was ok in the evening when he went to bed. He had one episode of chills and rigors at night. He woke up early in night and noted that he was weak and dizzy, when he tried to go to the bathroom. He woke up again around 4 and noted he did not have much strength in his legs, very tired and fatigued, unable to get up from the bathroom floor, he crawled his way to the bedroom, and scraped and injured his lower legs, he did not get better after few hrs and aft er the insistence of his grandson he called 911. The patient in the ER was noted to have elevated wbc count, high lactate, and renal failure, possible redness in the right leg, ua positive for blood and CK Rasied to 3600, admitted to the hospital for same. The patient denies any loss of bowel bladder function, no loss of sensation, only weakness bilaterally, able to move both legs. no trauma to the back. he is usually short of breath when he does more than usual activity at baseline , but denies any h/o COPD. 08/06: Patient seen examined, no acute overnight events, he feels much better, he had temp of 103, overnight, his labs reviewed, lactic acid is now normal, but his CK climbed to 13K, Patient cellutlitis has remained stable. Will get x ray ankle. august 07: this patient was admitted after a fall, and reported fever and chills. He presented with acute rhabdomyolysis leukocytosis, lactic acidosis and apparent right lower extremity cellulitis, as well as bilateral knee abrasions. he has continued to have fever spikes, with a temperature as high as 104 last night. yesterday evening, he had an episode of diarrhea, and got out of bed to get cleaned up. His nurse noted he became extremely short of breath and tachypnea That time. The patient reported that he always has mild dyspnea with exertion, but that this was worse than usual. 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 Follow-up EKG showed sinus rhythm with frequent ectopy. Follow-up testing did show that he bumped his troponin to 0.06 and BNP was elevated at 1456. Blood gas showed moderate hypoxemia but no CO2 retention and normal pH. Chest CT was ordered last night, without contrast due to renal function, and shows a small left lower lobe infiltrate, and small bilateral pleural effusions , heavy coronary, as well as a small solitary stone in the gallbladder neck, and a 3.5 cm mass in the left kidney, worrisome for renal cell carcinoma. This morning, the patient says he is feeling better. He says shortness of breath is much improved. He denies any chest pain or palpitations. He has been having some bright red blood per rectum, and in addition to loose stools and notes he does have hemorrhoids. He does not feel feverish this morning, and denies chills. He denies chest pain or palpitations, abdominal pain, nausea or vomiting. Black catheter remains in place. He feels his right lower extremity is less red, less tender, less swollen today. August 08: today, the patient says he is feeling better. However this morning he started to have abdominal discomfort.he also had mild nausea. He was to have an MRI, so the nurse pulled his Black catheter with a temperature probe, out. She noted the end to be very crusted over and rather sharp. The patient then developed gross hematuria. Initially his abdominal discomfort improved, then it recurred then he passed more blood clots, and then the pain resolved again. he notes he is no longer having fever or chills. he denies sore throat or cough , chest pain or palpitations. His dyspnea with exertion and seems quite a bit improved. He denies vomiting, diarrhea, constipation. August 09: The patient notes he is feeling quite a bit better today. He did request to have his Black put back in yesterday, because he was having a lot of burning with urination. He is otherwise comfortable today. He denies fever or chills, sore throat or cough, chest pain or palpitations, abdominal pain, nausea or vomiting. His stools continue to be rather loose. August 10: Today, the patient continues to say that he is feeling better. His breathing is better. His leg seems a little bit less swollen. He denies fever chills, chest pain or palpitations, significant shortness of breath, abdominal pain, nausea or vomiting. Stools continue to be loose. Black catheter remains in place, at patient's request, for comfort. He is continuing on IV fluids and has significant urine output. -He continues to spike low-grade temperatures, with the last being 100.4. He has good urine output, but remains significantly positive on intake and output. CK continues to decline. -I believe he walked a little with physical therapy today, and says he understands that he needs to work on strengthening, prior to consideration of going home. August 11: Today, patient notes he is feeling better still. When I first saw him today, Dr. Michelle was cleansing and debriding his right lower leg. The patient has epidermal lysis, so is shedding his epidermis. The skin underneath is bright pink, but does look better and less angry, then skin looked a couple of days ago. The patient denies fever chills, headaches or dizziness, chest pain or shortness of breath, GI symptoms. He still has a Black catheter in place. -Renal function is probably back to baseline. CPK is still elevated at over 900. Urine output has been consistently good. He is quite forehead on intake over output. -He continues to have low-grade temperature spikes, but overall the trend is downward. August 12: Today, the patient says he is feeling fine. He and his are wondering about the CT scan results, which actually do not show any masses or other problems with the kidneys. He denies any particular symptoms, such as fever chills, chest pain or shortness of breath, abdominal pain. He still has occasional loose stools, and nursing staff says he has had numerous guaiac positive stools, likely related to his hemorrhoids. H and H have differential drifted down somewhat, but not severely. Black catheter remains in place, regarding high volume urine output. -Renal function appears to be approaching baseline. -He has been afebrile for almost 24 hours now. His white blood cell count is down to normal. - Constitutional Vitals: Vital Signs Temp Pulse Resp BP Pulse Ox 97.1 F 74 20 162/69 94 08/12/16 17:00 08/12/16 13:43 08/12/16 17:00 08/12/16 17:00 08/12/16 17:00 Period Temp Pulse Resp BP Sys/Romero Pulse Ox Last 24 Hr 97.1 F-98.3 F 60-74 18-20 125-162/69-85 94-98 Intake and Output 08/12/16 08/12/16 08/12/16 05:59 13:59 21:59 Intake Total 50 / 50 1050 / 1050 Output Total 850 / 850 2550 / 2550 200 / 200 Balance -800 / -800 -1500 / -1500 -200 / -200 Intake & Output: Intake & Output 08/12/16 08/12/16 08/12/16 05:59 13:59 21:59 Intake Total 50 / 50 1050 / 1050 Output Total 850 / 850 2550 / 2550 200 / 200 Balance -800 / -800 -1500 / -1500 -200 / -200 Intake: IV 50 / 50 1050 / 1050 NaCl 0.9% W/KCl 20Meq 1000 / 1000 1000ML 1,000 ml @ 75 mls/ hr IV .[id number] TOMMY Rx#: [id number] Zosyn 3.375 gm In 50 / 50 50 / 50 Dextrose 5% in Water 50 ml @ 100 mls/hr IV Q8H TOMMY Rx#:[id number] Output: Urine Catheter Amount 850 / 850 2550 / 2550 200 / 200 Other: Meal Lunch Percent of Meal Consumed 100% Feeding Ability Independent # Bowel Movements 1 1 1 On exam, he is in no acute distress. Neck is supple without obvious JVD. Cardiac exam shows regular rate and rhythm, with normal S1 and S2. Lungs: Are essentially clear to auscultation, without obvious rales, rhonchi, wheezes. Abdomen is quite protuberant, but soft and nontender. Extremities: Right arm looks less puffy today, and that is the arm that has his IV, that has been there since he was admitted on August 05. ( He has been reluctant to have that changed, as he is a very difficult stick and they had a hard time getting it) Left leg is somewhat puffy. Right lower extremity below the knee is diffusely swollen with erythema and edema. There is significant fluid weeping from the leg. Overall leg is probably less red and less tender than previously. Neurologic exam: Is grossly nonfocal. Medical - PN: Obj Da - Labs CBC & Chem 7: 08/12/16 05:37 08/12/16 05:37 Labs: Abnormal Lab Results 08/12/16 08/12/16 08/11/16 05:37 05:37 03:45 RBC 3.49 L Hgb 11.6 L Hct 33.9 L Gran % Lymph % (Auto) Gran # Lymph # (Auto) Potassium Creatinine 1.3 H 1.3 H Glucose Calcium 8.3 L 8.3 L Phosphorus GGT 112 H 107 H AST 77 H 88 H ALT 69 H 75 H Lactate Dehydrogenase 253 H 267 H Total Creatine Kinase 604 H 919 H Albumin 2.7 L 2.6 L Globulin 3.8 H Albumin/Globulin Ratio 0.7 L 0.7 L 08/11/16 08/10/16 08/10/16 03:45 04:08 04:08 RBC 3.44 L 3.66 L Hgb 11.4 L 12.1 L Hct 33.9 L 36.0 L Gran % 80.5 H Lymph % (Auto) 11.9 L Gran # 8.7 H Lymph # (Auto) 1.3 L Potassium 3.2 L Creatinine 1.3 H Glucose 119 H Calcium 8.5 L Phosphorus 2.0 L GGT 108 H AST 114 H ALT 82 H Lactate Dehydrogenase 273 H Total Creatine Kinase 1608 H Albumin 2.7 L Globulin 3.8 H Albumin/Globulin Ratio 0.7 L august 11: CT IVP: Simple cyst in both kidneys. No other abnormalities. 22 mm soft tissue lesion in the gallbladder neck, polyp versus stone versus sludge. Small pericardial effusion. Inflammatory stranding in the retroperitoneal region of the pelvis, significance unknown. august 08: -right lower extremity Doppler shows no evidence of DVT. Right knee wound culture is being read as negative. august 07: echocardiogram report shows mild four-chamber enlargement. Left ventricular ejection fraction 50%. there is aortic root sclerosis. There is mild mitral regurgitation. -eKG from this morning shows normal sinus rhythm at a rate of 80, with frequent PVCs. August 06: -C. difficile screen is negative. -ABG on a 4.5 L O2 mask: PH 7.44 PCO2 27, PO2 70, bicarbonate 18, O2 saturation 94% -CT of the chest: Shows a small patchy left lower lobe infiltrate with small bilateral pleural effusions. Extremely heavy atherosclerotic calcification of all coronary arteries. Small pericardial effusion. 19 mm solitary stone in the gallbladder neck. 3.5 cm low attenuation lesion in the mid left kidney with an 18 mm satellite lesion in the perinephric fat. August 05: -Urine culture is negative. -blood cultures are negative . August 04: MRSA screen is negative. Meds: Medications Acetaminophen (Tylenol) 650 mg PO Q4-6HP PRN PRN Reason: PAIN/FEVER > 101 Last Admin: 08/12/16 12:28 Dose: 650 mg Albuterol Sulfate (Ventolin) 2.5 mg NEB Q2HP PRN PRN Reason: Shortness Of Breath Allopurinol (Zylopriim) 300 mg PO DAILY [facility] Last Admin: 08/12/16 08:36 Dose: Not Given Aspirin (Ecotrin) 325 mg PO DAILY [facility] Last Admin: 08/12/16 08:36 Dose: 325 mg Clopidogrel Bisulfate (Plavix) 75 mg PO DAILY [facility] Last Admin: 08/12/16 08:35 Dose: 75 mg Gabapentin (Neurontin) 300 mg PO BID [facility] Last Admin: 08/12/16 08:35 Dose: 300 mg Hydrocortisone Acetate (Anusol Hc) 25 mg MI BIDP PRN PRN Reason: Hemorrhoids Hydromorphone HCl (Dilaudid) 0.5 mg IV Q2HP PRN PRN Reason: Pain Piperacillin Sod/Tazobactam (Sod 3.375 gm/ Dextrose) 50 mls @ 100 mls/hr IV Q8H [facility] Last Admin: 08/12/16 14:24 Dose: 100 mls/hr Vancomycin HCl 1,500 mg/ (Sodium Chloride) 500 mls @ 333.3 mls/hr IV Q24H [facility] Last Admin: 08/12/16 16:32 Dose: 333 mls/hr Magnesium Hydroxide (Milk Of Magnesia) 30 ml PO DAILYP PRN PRN Reason: Constipation Metoprolol Tartrate (Lopressor) 50 mg PO BID [facility] Last Admin: 08/12/16 08:35 Dose: 50 mg Naloxone HCl (Narcan) 0.1 mg IV Q2MIN PRN PRN Reason: Opiate Reversal Ondansetron HCl (Zofran) 4 mg IV Q4-6HP PRN PRN Reason: Nausea And Vomiting Potassium/Phosphorus/Sodium (Neutra Phos) 2 packet PO BID [facility] Last Admin: 08/12/16 08:36 Dose: 2 packet Senna (Senokot) 1 tab PO HSP PRN PRN Reason: Constipation Silver Sulfadiazine (Silvadene) 1 dose TOPICAL DAILY [facility] Last Admin: 08/12/16 11:36 Dose: 1 dose Sodium Chloride (Saline Flush) 10 ml IV Q8 [facility] Last Admin: 08/12/16 13:45 Dose: Not Given Vancomycin HCl (Vancomycin Per Pharmacy) 1 order IV UD [facility] Medical - PN: A/P - Time Spent With Patient Total time spent is greater than 50% in coordination of care (as documented) at patient's floor/unit and/or counseling patient: 25 - 35 minutes - Narrative A/P Narrative: #1.Severe sepsis/infectious disease. Lower extremity cellulitis, and friction burn, severe. Possible early pneumonia. Urinary tract infection. - improving, bp stable, lactic acid now back to normal. -Temperature is actually been normal for the last 24 hours now. White blood cell count is back to normal. -He does have large calluses on his feet, and a cracked callus may be the source of his infection. We will have him follow-up with podiatry. Continue vancomycin and Zosyn. Levaquin was discontinued. Has continued marked itching of fluid around the right lower leg, and will continue with daily wound care. Continue antibiotics, as he is probably still at significant risk for infection due to skin breakdown. Hopefully skin will start to heal more quickly, once we get some of this extra fluid off of him. Will start pushing diuretics harder today. - Dr. Michelle is now following as well. He cleansed and debrided the leg , and removed some of the sloughing skin. We will continue with daily wound care for now. He says the skin injury is the equivalent of a third-degree burn. #2. Cardiac. -This patient has known coronary disease, and has had dyspnea . Troponin was mildly positive, but echocardiogram, is reassuring. EKG does not show obvious ischemia. Vital signs have otherwise been stable .We will continue with aspirin, and I did add Plavix . Also, it appears he was taking atenolol at home so I added Lopressor. it does not appear that he had any significant cardiac insult, but does have underlying coronary disease. Both troponin and BNP may have been more elevated than they otherwise would be , due to renal dysfunction.(-BNP was elevated, so patient was given IV Lasix, regarding dyspnea. LVEF on echo looks fine. -he does take meloxicam at home, and I would avoid this in this patient with known coronary disease.) #3.HTN: -BP stable- apparently atenolol was held on admission, for hypotension. Lopressor was added in view of likely underlying ischemia. He is tolerating this well. Pressure is still somewhat labile, but overall doing well, ranging from 125-162/ 69-76. I expect this will improve as we diurese him further. #4.renal. -Acute Kidney Injury - - due to sepsis and rhabdomyolysis. creatinine is gradually improving. Baseline is 1.2. this is improving. he continues to have good urine output. CPK is also trending down. -He did have hypokalemia , so that was replaced IV. Phosphorus is also low, so is being replaced orally. -DC Black catheter soon, after little more diuresis. -CT scan shows a renal mass. However, on follow-up CT IVP yesterday, no definite mass is seen. Have some retroperitoneal stranding of uncertain etiology. However no signs of renal malignancy are seen. #5.Ruben knee abrasions, right toe contusion: ruben bacitracin ointment, wound care #6.DVT hep sq #7.Full code #8. Pulmonary. -the patient has required oxygen at times, but this is improved . He has been receiving aggressive IV fluids, but did seem to improve after IV Lasix . He no longer reports dyspnea. We are giving him Lasix 1-2 times a day, to try to keep him from developing volume overload again. Hypoxemia is also likely due to significant obesity. Patient also has obstructive sleep apnea. #9. GI. Mildly elevated LFTs. Improving. I suspect this is due to passive liver congestion related to his volume overload. -patient has had bright red blood per rectum, as well as diarrhea. C. difficile screen was negative. He may be having some antibiotic associated diarrhea. He also has known hemorrhoids. Continue to monitor hemoglobin. He reports he had a colonoscopy about 12 years ago that was normal. Disposition: He is encouraged to continue working with physical therapy on strengthening. so far today, this visit has taken approximately 30 minutes, review of test results, interview and exam of the patient, discussion with nursing staff and the patient and his , regarding plan of care. He will likely be discharged to swing bed status soon, for ongoing wound care. Medical - PN: Qual - VTE Deep Vein Thrombosis/Pulmonary Embolism Present on Admission: No
[2016-08-13] MEDS: 0.9 % SODIUM CHLORIDE 10 ML SYRINGE IV SCH ×2 (05:56→13:51)
[2016-08-13] MEDS: PIPERACILLIN SODIUM/TAZOBACTAM 3.375 GM in DEXTROSE 5% IN WATER 50 ML IV SCH ×2 (05:56→13:52)
[2016-08-13] MEDS: ACETAMINOPHEN 325 MG TABLET PO PRN (07:44)
[2016-08-13] MEDS: ALLOPURINOL 300 MG TABLET PO SCH (09:07)
[2016-08-13] MEDS: GABAPENTIN 300 MG CAPSULE PO SCH (09:07)
[2016-08-13] MEDS: NEUTRA PHOS 1 PACKET PO SCH (09:07)
[2016-08-13] MEDS: CLOPIDOGREL 75 MG TABLET PO SCH (09:07)
[2016-08-13] MEDS: METOPROLOL TARTRATE 25 MG TABLET PO SCH (09:07)
[2016-08-13] MEDS: ASPIRIN 325 MG ENTERIC COATED TABLET PO SCH (09:07)
[2016-08-13] MEDS ORDERED: FUROSEMIDE 20 MG/2 ML VIAL IV ONE (09:15)
[2016-08-13] MEDS ORDERED: POTASSIUM CHLORIDE 20 MEQ PACKET PO ONE (09:18)
[2016-08-13] MEDS: SILVER SULFADIAZINE CREAM.TOP 25GM TOPICAL SCH (11:30)
--- NOTE | 2016-08-13 15:26 | Discharge Summary ---
Medical - DS: Prov Patient information: Note initiated : 08/13/16 at 3:25 pm Service Date, if different from initiated Date: [] Patient: Sharif David 75 y/o M admitted on 08/05/16 for Cellulitis&Abscess of Rt Leg/Abrasion/Dehydration. Chief Complaint: [] Date of admission: 08/05/16 14:44 Discharge date: 08/13/16 Primary care physician: Olaf An Admitting clinician: Gia Padilla Consults: 08/08/16 09:57 Consult to Physician [CONS] Routine Comment: wound consult Consulting Provider: Ar Michelle Reason For Exam: Physician to Consult Attending physician on discharge: Carline Aviles Medical - DS: Meds - Discharge Medications Active and Home Medications: Discharge medications: Vancomycin 1500 mg IV every 24 hours Zosyn 3.375 g IV every 8 hours Silvadene applied topically to right lower leg wounds, daily Tylenol 650 mg every 4-6 hours as needed Albuterol nebulizer every 2 hours as needed Aspirin 325 mg daily Plavix 75 mg daily Gabapentin 300 mg twice daily Anusol HC rectal suppositories twice daily as needed hemorrhoids Dilaudid 0.5 mg IV every 2 hours as needed Milk of magnesia 30 mL daily as needed Metoprolol 50 mg p.o. twice daily Naloxone 0.1 mg IV every 2 minutes as needed Zofran 4 mg IV every 4-6 hours as needed Neutra-Phos 2 packets p.o. twice daily Senna 1 tab nightly as needed Pravastatin 40 mg nightly Olmesartan 40 mg daily (Allopurinol will be discontinued, as the patient says he no longer takes this) Prior home Medications atenolol 50 mg tablet 50 mg PO BID tab 02/03/16 [History Confirmed 08/05/16 Last Taken Unknown] pravastatin 40 mg tablet 40 mg PO QHS 02/03/16 [History Confirmed 08/05/16 Last Taken Unknown] diphenhydramine 25 mg capsule 25 mg PO Q4H PRN #90 cap 03/02/16 [Rx Confirmed Last Taken Unknown] aspirin 325 mg tablet 325 mg PO QDAY 03/30/16 [History Confirmed 08/05/16 Last Taken Unknown] meloxicam 15 mg tablet 15 mg PO QDAY 03/30/16 [History Confirmed 08/05/16 Last Taken Unknown] triamcinolone acetonide 55 mcg nasal spray aerosol 1 spray INTRANASAL .COMPLEX 03/30/16 [History Confirmed 08/05/16 Last Taken Unknown] gabapentin 300 mg capsule 300 mg PO BID #60 cap 06/06/16 [Rx Confirmed 08/05/16 Last Taken Unknown] olmesartan 40 mg tablet 40 mg PO QDAY #90 tab 06/06/16 [Rx Confirmed 08/05/16 Last Taken Unknown] Medical - DS: Hosp Hospital course: Mr. David is a 75 year old M August 05, 2016: History of present illness: Mr. David is a 75 year old M with h/o cad, neuropathy, presented to the ER after weakness in both his lower extremities since AM The patient reports he was ok yesterday, had mowed his lawn (self propelled) and may have not drank enough fluids, he was ok in the evening when he went to bed. He had one episode of chills and rigors at night. He woke up early in night and noted that he was weak and dizzy, when he tried to go to the bathroom. He woke up again around 4 and noted he did not have much strength in his legs, very tired and fatigued, unable to get up from the bathroom floor, he crawled his way to the bedroom, and scraped and injured his lower legs, he did not get better after few hrs and aft er the insistence of his grandson he called 911. The patient in the ER was noted to have elevated wbc count, high lactate, and renal failure, possible redness in the right leg, ua positive for blood and CK Rasied to 3600, admitted to the hospital for same. The patient denies any loss of bowel bladder function, no loss of sensation, only weakness bilaterally, able to move both legs. no trauma to the back. he is usually short of breath when he does more than usual activity at baseline , but denies any h/o COPD. august 07: this patient was admitted after a fall, and reported fever and chills. He presented with acute rhabdomyolysis leukocytosis, lactic acidosis and apparent right lower extremity cellulitis, as well as bilateral knee abrasions. he has continued to have fever spikes, with a temperature as high as 104 last night. yesterday evening, he had an episode of diarrhea, and got out of bed to get cleaned up. His nurse noted he became extremely short of breath and tachypnea That time. The patient reported that he always has mild dyspnea with exertion, but that this was worse than usual. He denied any associated chest pain or palpitations, but his nurse noted that he had much more ectopy on his shelter monitor, with frequent PVCs and occasional bigeminy, and some change and waveforms. Follow-up EKG showed sinus rhythm with frequent ectopy. Follow-up testing did show that he bumped his troponin to 0.06 and BNP was elevated at 1456. Blood gas showed moderate hypoxemia but no CO2 retention and normal pH. Chest CT was ordered last night, without contrast due to renal function, and shows a small left lower lobe infiltrate, and small bilateral pleural effusions , heavy coronary, as well as a small solitary stone in the gallbladder neck, and a 3.5 cm mass in the left kidney, worrisome for renal cell carcinoma. August 13: Hospital course: As above, patient was admitted after a fall, after which he laid on the ground for quite some time and then developed fever and chills. He presented to the emergency room with acute renal failure, acute rhabdomyolysis, sepsis with lactic acidosis, right lower extremity cellulitis. -He was treated with very large volumes of IV fluids over many days, and CPK has steadily declined. Acute renal failure has resolved. -The patient did have several days of dyspnea, and was diagnosed with volume overload and mild CHF. This responded to Lasix, and has not recurred. He did bump troponin enzymes slightly, as well as BNP, but this was felt to be more related to demand ischemia and volume overload in the setting of acute illness. Plavix was added to his aspirin regimen, and atenolol was changed to metoprolol. He has not had any other signs of cardiac compromise since he was diuresed a bit. -CT scan of his chest had suggested a renal mass, but follow-up CT IVP showed no masses. -The patient continued to spike fevers daily for quite a few days after admission. He was covered with vancomycin and Zosyn, and then had Levaquin added, as we were not certain why he was so slow to respond. However he had fairly massive edema of his right lower extremity, which is probably interfering with resolution of cellulitis. White blood cell count is now back to normal. Fevers have resolved. Today, the patient says he is feeling quite well. He is no longer having fever or chills. He does have having much less pain in his right leg than before. He did have his Black catheter removed this morning, and is urinating just fine. He denies headaches or dizziness, sore throat or cough, chest pain or palpitations, shortness of breath, abdominal pain, nausea or vomiting, dysuria. He does have occasional loose stools, and has had occasional bright red blood per rectum due to his hemorrhoids. On exam, he is in no acute distress. Neck is supple without obvious JVD. Cardiac exam shows regular rate and rhythm, with normal S1 and S2. Lungs: Are essentially clear to auscultation, without obvious rales, rhonchi, wheezes. Abdomen is quite protuberant, but soft and nontender. Extremities: Left leg is somewhat puffy. Right lower extremity below the knee is diffusely swollen with erythema and edema. The previously large amount of serosanguineous weeping onto the dressing , seems to have decreased quite a bit. Dressing is quite dry today. Erythema and edema are both significantly improved. Neurologic exam: Is grossly nonfocal. Assessment and plan: #1.Severe sepsis/infectious disease. Lower extremity cellulitis, and friction burn, severe. Possible early pneumonia. Urinary tract infection. Pneumonia and UTI appear resolved. Right lower extremity cellulitis is much improved, but needs ongoing aggressive wound care, so patient will be discharged to swing status. He is agreeable to daily dressing changes, and other wound care, here, as this is what Dr. Michelle of wound care recommends. -He does have large calluses on his feet, and a cracked callus may be the source of his infection. We will have him follow-up with podiatry. -Continue vancomycin and Zosyn for another 3-7 days.. Levaquin was discontinued. Hopefully skin will start to heal more quickly, once we get some of this extra fluid off of him. Will start pushing diuretics harder today. #2. Cardiac. -This patient has known coronary disease, and has had dyspnea . Troponin was mildly positive, but echocardiogram, is reassuring. EKG does not show obvious ischemia. Vital signs have otherwise been stable .We will continue with aspirin, and I did add Plavix . Also, it appears he was taking atenolol at home so I added Lopressor. it does not appear that he had any significant cardiac insult, but does have underlying coronary disease. .(-BNP was elevated, so patient was given IV Lasix, regarding dyspnea. LVEF on echo looks fine. -he does take meloxicam at home, and I would avoid this in this patient with known coronary disease.) #3.HTN: -BP stable- apparently atenolol was held on admission, for hypotension. Lopressor was added in view of likely underlying ischemia. He is tolerating this well. Pressure is still somewhat labile, but overall doing well, ranging from 125-162/ 69-76. I expect this will improve as we diurese him further. -Change atenolol over to Toprol XL at discharge. #4.renal. -Acute Kidney Injury - - due to sepsis and rhabdomyolysis. Renal function appears to be at baseline now. -CT scan shows a renal mass. However, on follow-up CT IVP yesterday, no definite mass is seen. Have some retroperitoneal stranding of uncertain etiology. However no signs of renal malignancy are seen. #5.Stacia knee abrasions, right toe contusion: stacia bacitracin ointment, wound care #6.DVT hep sq #7.Full code #8. Pulmonary. -the patient has required oxygen at times, but this is improved . Hypoxemia is also likely due to significant obesity. Patient also has obstructive sleep apnea. #9. GI. Mildly elevated LFTs. Improving. I suspect this was due to passive liver congestion related to his volume overload. -patient has had bright red blood per rectum, as well as diarrhea. C. difficile screen was negative. He may be having some antibiotic associated diarrhea. He also has known hemorrhoids. Continue to monitor hemoglobin. He reports he had a colonoscopy about 12 years ago that was normal. Disposition: He is encouraged to continue working with physical therapy on strengthening. Discharged to swing bed status, for continued wound care. Dr. coffman they will be following up after the weekend, and will decide if patient can be discharged home, with subsequent outpatient wound care follow-up. Visit took approximately 35 minutes today, to review patient's test results, interview and examine the patient, review test results with he and his , and write discharge orders . Discharge diagnosis: RLE severe cellulitis/friction burn. Severe rhabdomyolysis with acute sarath Secondary discharge diagnosis: Sepsis Volume overload, with mild congestive heart failure, mild bump in cardiac enzymes Coronary artery disease GERD Hyperlipidemia Hypertension Morbid obesity - Time Spent with Patient Total time spent providing and/or coordinating discharge services: Greater than 30 minutes Medical - DS: Exam - Constitutional Vitals: Vital Signs Temp Pulse Resp BP BP Pulse Ox 08/13/16 11:15 97.9 F 18 153/76 93 08/13/16 06:54 98.4 F 16 181/73 94 08/13/16 04:00 96.8 F L 65 20 158/78 96 08/12/16 23:48 97.4 F 67 20 119/70 92 08/12/16 19:44 97.3 F 72 16 148/74 93 08/12/16 17:00 97.1 F 20 162/69 94 Intake and Output 08/13/16 08/13/16 08/13/16 05:59 13:59 21:59 Intake Total 600 / 600 530 / 530 Output Total 400 / 400 1025 / 1025 Balance 200 / 200 -495 / -495 Intake: IV 50 / 50 Zosyn 3.375 gm In 50 / 50 Dextrose 5% in Water 50 ml @ 100 mls/hr IV Q8H [facility] Rx#:[id number] Oral 600 / 600 480 / 480 Output: Urine Catheter Amount 400 / 400 250 / 250 Void Amount 775 / 775 Other: Meal Lunch Percent of Meal Consumed 100% # Bowel Movements 1 1 Medical - DS: Data Procedures and tests throughout hospitalization: August 12: CBC: White blood cell count 9000, hemoglobin 11, hematocrit 33.9, platelets 294, 000, normal differential Chemistry panel: Sodium 143, potassium 3.5, chloride 104, CO2 25, anion gap 14, BUN 14, creatinine 1.3, glucose 78, calcium 8.3, total bilirubin 0.7, AST is lower at 77, ALT is lower at 69, GGT is a bit elevated at 112, LDH is lower at 253, total CK is lower at 604, albumin is low at 2.7, august 11: CT IVP: Simple cyst in both kidneys. No other abnormalities. 22 mm soft tissue lesion in the gallbladder neck, polyp versus stone versus sludge. Small pericardial effusion. Inflammatory stranding in the retroperitoneal region of the pelvis, significance unknown. august 08: -right lower extremity Doppler shows no evidence of DVT. Right knee wound culture is being read as negative. august 07: echocardiogram report shows mild four-chamber enlargement. Left ventricular ejection fraction 50%. there is aortic root sclerosis. There is mild mitral regurgitation. -eKG from this morning shows normal sinus rhythm at a rate of 80, with frequent PVCs. August 06: -C. difficile screen is negative. -ABG on a 4.5 L O2 mask: PH 7.44 PCO2 27, PO2 70, bicarbonate 18, O2 saturation 94% -CT of the chest: Shows a small patchy left lower lobe infiltrate with small bilateral pleural effusions. Extremely heavy atherosclerotic calcification of all coronary arteries. Small pericardial effusion. 19 mm solitary stone in the gallbladder neck. 3.5 cm low attenuation lesion in the mid left kidney with an 18 mm satellite lesion in the perinephric fat. August 05: -Urine culture is negative. Urinalysis showed protein of 30 mg, 25 leukocyte esterase, negative nitrites, moderate crystals, 22 hyaline casts, 9 granular casts -blood cultures are negative . CBC: White blood cell count 23,000, hematocrit 44, platelets 196,000, granulocyte count 21,000 Lactic acid elevated at 5.0 Chemistry panel: Anion gap 17, BUN 30, creatinine 2.0 Total bilirubin high at 1.8, AST 59 CPK is elevated at 8376, total CK is 3603 Troponin normal at 0.02 Pro-calcitonin was elevated at 9.5 August 04: MRSA screen is negative. Medical - DS: A/P - Patient/Caregiver Discharge Instructions Activity: as per physical therapy, increase activity as tolerated Diet: Low Sodium (2gm) Other Amb Orders: Aspiration Precautions Location: Determined By Patient Fall Risk Location: Determined By Patient OT Discharge Order Location: Determined By Patient Physical Therapy at Discharge - General Location: Determined By Patient ST Discharge Order Location: Determined By Patient Wound Care/Dressings Location: Determined By Patient Walker Location: Determined By Patient - Follow up Plan Follow up with: Olaf An DO [Primary Care Provider] - Disposition: [facility] Swing Bed Prognosis: Critical Rehab Potential: Good I certify that the patient requires SNF services: Yes Overall status at discharge: patient is progressing back to baseline Medical - DS: Qual - VTE Deep Vein Thrombosis/Pulmonary Embolism Present on Admission: No
[2016-08-13] MEDS: VANCOMYCIN 1,500 MG in 0.9 % SODIUM CHLORIDE 500 ML IV SCH (15:46)
== END 2016-08-13 16:20 | disposition other institution (70) | DRG 853 ==
LOC: ED 07:33 → ICU 14:44 → SUATTDRO 14:44 → ICU 14:53 → MEDSUR 08-11 16:27
PROVIDERS: ADMIT Internal Medicine; ATTEND Internal Medicine

== ENCOUNTER 2016-08-13 15:37 | Inpatient (IN) ==
[2016-08-13] MEDS ORDERED: HYDROCORTISONE ACETATE 25 MG SUPP.RECT PR PRN (17:08)
[2016-08-13] MEDS ORDERED: NALOXONE HCL 0.4 MG/ML VIAL IV PRN (17:08)
[2016-08-13] MEDS ORDERED: SENNOSIDES 1 TABLET PO PRN (17:08)
[2016-08-13] MEDS ORDERED: ALBUTEROL SULFATE 2.5 MG/3 ML NEBULIZER NEB PRN (17:08)
[2016-08-13] MEDS ORDERED: ONDANSETRON 4 MG/2 ML VIAL IV PRN (17:08)
[2016-08-13] MEDS ORDERED: MAGNESIUM HYDROXIDE 30 ML ORAL.SUSP PO PRN (17:08)
[2016-08-13] MEDS ORDERED: HYDROmorphone 2 MG/ML SYRINGE IV PRN (17:08)
[2016-08-13] MEDS ORDERED: VANCOMYCIN 500 MG VIAL IV SCH (17:15)
[2016-08-13] MEDS ORDERED: PIPERACILLIN SODIUM/TAZOBACTAM 3.375 GM VIAL IV SCH (17:15)
[2016-08-13] MEDS ORDERED: VANCOMYCIN PER PHARMACY IV SCH (17:25)
[2016-08-13] MEDS ORDERED: METOPROLOL TARTRATE 25 MG TABLET PO SCH (21:00)
[2016-08-13] MEDS ORDERED: NEUTRA PHOS 1 PACKET PO SCH (21:00)
[2016-08-13] MEDS: GABAPENTIN 300 MG CAPSULE PO SCH (21:27)
[2016-08-13] MEDS: PIPERACILLIN SODIUM/TAZOBACTAM 3.375 GM in DEXTROSE 5% IN WATER 50 ML IV SCH (21:32)
[2016-08-13] MEDS: 0.9 % SODIUM CHLORIDE 10 ML SYRINGE IV SCH (21:33)
[2016-08-13] MEDS: ACETAMINOPHEN 325 MG TABLET PO PRN (22:13)
[2016-08-14] MEDS: ACETAMINOPHEN 325 MG TABLET PO PRN ×3 (05:49→20:00)
[2016-08-14] MEDS: 0.9 % SODIUM CHLORIDE 10 ML SYRINGE IV SCH ×3 (05:50→22:01)
[2016-08-14] MEDS: PIPERACILLIN SODIUM/TAZOBACTAM 3.375 GM in DEXTROSE 5% IN WATER 50 ML IV SCH ×3 (05:50→22:01)
[2016-08-14] MEDS: GABAPENTIN 300 MG CAPSULE PO SCH ×2 (08:25→20:00)
[2016-08-14] MEDS: OLMESARTAN MEDOXOMIL 20 MG TABLET PO SCH (08:25)
[2016-08-14] MEDS: METOPROLOL SUCCINATE 50 MG TAB.XL.24H PO SCH (08:25)
[2016-08-14] MEDS: CLOPIDOGREL 75 MG TABLET PO SCH (08:25)
[2016-08-14] MEDS: ASPIRIN 81 MG TAB.CHEW PO SCH (08:25)
[2016-08-14] MEDS ORDERED: ASPIRIN 325 MG TABLET.DR PO SCH (09:00)
[2016-08-14] MEDS: SILVER SULFADIAZINE CREAM.TOP 25GM TOPICAL SCH (10:47)
--- NOTE | 2016-08-14 11:07 | Internal Med History&Physical ---
Medical - H&P: HPI Patient information: Note initiated : 08/14/16 at 11:07 am Service Date, if different from initiated Date: [] Patient: Sharif David 75 y/o M admitted on 08/13/16 for cellulitis. Chief Complaint: [] History of present illness: Mr. David is a 75 year old M This 75-year-old white male was admitted after a fall, on August 05, 2016 after which he laid on the ground for quite some time and then developed fever and chills. He presented to the emergency room with acute renal failure, acute rhabdomyolysis, sepsis with lactic acidosis, right lower extremity cellulitis. -He was treated with very large volumes of IV fluids over many days, and CPK steadily declined. Acute renal failure has resolved. -The patient did have several days of dyspnea, and was diagnosed with volume overload and mild CHF. This responded to Lasix, and has not recurred. He did bump troponin enzymes slightly, as well as BNP, but this was felt to be more related to demand ischemia and volume overload in the setting of acute illness. Plavix was added to his aspirin regimen, and atenolol was changed to metoprolol. He has not had any other signs of cardiac compromise since he was diuresed a bit. -CT scan of his chest had suggested a renal mass, but follow-up CT IVP showed no masses. -The patient continued to spike fevers daily for quite a few days after admission. He was covered with vancomycin and Zosyn, and then had Levaquin added, as we were not certain why he was so slow to respond. However he had fairly massive edema of his right lower extremity, which is probably interfering with resolution of cellulitis. White blood cell count is now back to normal. Fevers have resolved. -This patient was discharged from acute care yesterday. Today's visit is to readmit him to a swing care bed, for ongoing wound care. He notes he is feeling quite well today. He was able to walk to and from the shower, with a walker, without much difficulty. He notes his right leg and foot pain is really quite minor, and less he is sitting up with his legs dangling. At that time his right foot can throb a bit. -He also continues to have occasional loose stools. He does not believe that he is having bright red blood in his stools any longer, and does not feel that his hemorrhoids are flaring up at this time. Otherwise, he denies fever or chills, headaches or dizziness, new eye or ear symptoms, sore throat or cough, chest pain or palpitations, shortness of breath or wheezing, abdominal pain, nausea or vomiting, constipation, dysuria. Black catheter was removed yesterday, and he has not had any difficulty since then. Medical History Status post admission for sepsis, acute renal failure, acute rhabdomyolysis, severe right lower extremity friction burn with cellulitis, minor bump in troponins and likely demand ischemia, with mild CHF. Morbid obesity (Chronic) GERD (gastroesophageal reflux disease) (Chronic) CAD (coronary artery disease) (Chronic) Heart attack (Chronic ~2001) Jaundice (Chronic ~1954) Hyperlipidemia (Chronic ~1999) Hypertension, essential (Chronic ~1997) History of tobacco use (Acute) Surgical history: H/O colonoscopy (Chronic ~2002) History of coronary artery bypass graft (Chronic) Hx of appendectomy (Chronic ~1949) August 13, 2016: Discharge medications: Vancomycin 1500 mg IV every 24 hours Zosyn 3.375 g IV every 8 hours Silvadene applied topically to right lower leg wounds, daily Tylenol 650 mg every 4-6 hours as needed Albuterol nebulizer every 2 hours as needed Aspirin 325 mg daily Plavix 75 mg daily Gabapentin 300 mg twice daily Anusol HC rectal suppositories twice daily as needed hemorrhoids Dilaudid 0.5 mg IV every 2 hours as needed Milk of magnesia 30 mL daily as needed Metoprolol 50 mg p.o. twice daily Naloxone 0.1 mg IV every 2 minutes as needed Zofran 4 mg IV every 4-6 hours as needed Neutra-Phos 2 packets p.o. twice daily Senna 1 tab nightly as needed Pravastatin 40 mg nightly Olmesartan 40 mg daily (Allopurinol will be discontinued, as the patient says he no longer takes this) (Prior home Medications: atenolol 50 mg tablet 50 mg PO BID tab 02/03/16 [History Confirmed 08/05/16 Last Taken Unknown] pravastatin 40 mg tablet 40 mg PO QHS 02/03/16 [History Confirmed 08/05/16 Last Taken Unknown] diphenhydramine 25 mg capsule 25 mg PO Q4H PRN #90 cap 03/02/16 [Rx Confirmed Last Taken Unknown] aspirin 325 mg tablet 325 mg PO QDAY 03/30/16 [History Confirmed 08/05/16 Last Taken Unknown] meloxicam 15 mg tablet 15 mg PO QDAY 03/30/16 [History Confirmed 08/05/16 Last Taken Unknown] triamcinolone acetonide 55 mcg nasal spray aerosol 1 spray INTRANASAL .COMPLEX 03/30/16 [History Confirmed 08/05/16 Last Taken Unknown] gabapentin 300 mg capsule 300 mg PO BID #60 cap 06/06/16 [Rx Confirmed 08/05/16 Last Taken Unknown] olmesartan 40 mg tablet 40 mg PO QDAY #90 tab 06/06/16 [Rx Confirmed 08/05/16 Last Taken Unknown]) Allergies: Reported as lisinopril. Family history: An uncle reportedly had cancer. Father had cancer and hypertension. An aunt had cancer. His mother had hypertension. Social history: The patient is and lives with his . He is a former smoker. He drinks alcohol only occasionally. He does not use drugs. Medical - H&P: Meds Home Medications Medication Instructions Recorded Confirmed Type pravastatin 40 mg tablet 40 mg PO QHS 02/03/16 08/13/16 History aspirin 325 mg tablet 325 mg PO QDAY 03/30/16 08/13/16 History gabapentin 300 mg capsule 300 mg PO BID #60 cap 06/06/16 08/13/16 Rx olmesartan 40 mg tablet 40 mg PO QDAY #90 tab 06/06/16 08/13/16 Rx 0.9 % Sodium Chloride [Saline 10 ml IV Q8 08/13/16 08/13/16 Rx Flush] Acetaminophen [Tylenol] 650 mg PO Q4-6HP PRN tablet 08/13/16 08/13/16 Rx Albuterol Sulfate [Ventolin] 2.5 mg NEB Q2HP PRN 08/13/16 08/13/16 Rx Clopidogrel Bisulfate [Plavix] 75 mg PO DAILY 08/13/16 08/13/16 History HYDROmorphone [Dilaudid] 0.5 mg IV Q2HP PRN 08/13/16 08/13/16 Rx Hydrocortisone Acetate [Anusol Hc] 25 mg AK BIDP PRN 08/13/16 08/13/16 Rx Magnesium Hydroxide [Milk of 30 ml PO DAILYP PRN 08/13/16 08/13/16 Rx Magnesia] Melatonin/Pyridoxine HCl (B6) 3 mg PO HSP PRN 08/13/16 08/13/16 History [Melatonin 3 mg Tablet] Metoprolol Tartrate [Lopressor] 50 mg PO BID tablet 08/13/16 08/13/16 Rx Naloxone HCl [Narcan] 0.1 mg IV Q2MIN PRN vial 08/13/16 08/13/16 Rx Neutra Phos 2 packet PO BID packet 08/13/16 08/13/16 Rx Ondansetron [Zofran] 4 mg IV Q4-6HP PRN vial 08/13/16 08/13/16 Rx Piperacillin Sodium/Tazobactam 3.375 gm IV Q8H vial 08/13/16 08/13/16 Rx [Zosyn] Sennosides [Senokot] 1 tab PO HSP PRN tablet 08/13/16 08/13/16 Rx Silver Sulfadiazine [Silvadene] 1 dose TOPICAL DAILY 08/13/16 08/13/16 Rx Vancomycin 1,500 mg IV Q24H vial 08/13/16 08/13/16 Rx Allergies Allergy/AdvReac Type Severity Reaction Status Date / Time lisinopril Allergy Severe Swelling Verified 08/05/16 14:59 of face Medical - H&P: Exam - Constitutional Vitals: Temp Pulse Resp BP Pulse Ox 98.6 F 71 16 143/91 93 08/14/16 08:00 08/13/16 23:54 08/14/16 08:00 08/14/16 08:00 08/14/16 08:00 On exam, he is an overweight white male, in no acute distress. He seems in good spirits today. Head is normocephalic atraumatic. Eyes: PERRLA, EOMI, anicteric. Ears: Have moderate cerumen, but otherwise TMs appear clear. Pharynx: Is somewhat crowded, but otherwise normal mucosa. Neck: Supple, without lymphadenopathy, JVD, thyromegaly, bruits. Cardiac exam: Shows regular rate and rhythm, with normal S1 and S2, without murmurs, rubs, gallops. Lung exam: Lungs appear clear, without obvious rales, rhonchi, wheezes. Abdomen: Is protuberant, but soft, without obvious masses. Bowel sounds are normoactive. Extremities: Left lower extremity appears normal. Right lower extremity continues to have a markedly pink rash extending from the knee down to the ankle. However the area of the rash has shrunk markedly since admission. He continues to have numerous blisters, where the skin is sloughing. He also still has a callus over the right great MTP joint this is cracked. There is still significant swelling below the knee, but markedly improved over several days ago. Prior to removing his dressing, the lower half was wet with serosanguineous discharge. Neurologic: Patient is alert and oriented, calm and cooperative. Motor exam is grossly nonfocal. Skin exam: Other than the right leg, does not show any other worrisome lesions. Medical - H&P: Reslt - Labs Labs: August 12: CBC: White blood cell count 9000, hemoglobin 11, hematocrit 33.9, platelets 294, 000, normal differential Chemistry panel: Sodium 143, potassium 3.5, chloride 104, CO2 25, anion gap 14, BUN 14, creatinine 1.3, glucose 78, calcium 8.3, total bilirubin 0.7, AST is lower at 77, ALT is lower at 69, GGT is a bit elevated at 112, LDH is lower at 253, total CK is lower at 604, albumin is low at 2.7, august 11: CT IVP: Simple cyst in both kidneys. No other abnormalities. 22 mm soft tissue lesion in the gallbladder neck, polyp versus stone versus sludge. Small pericardial effusion. Inflammatory stranding in the retroperitoneal region of the pelvis, significance unknown. august 08: -right lower extremity Doppler shows no evidence of DVT. Right knee wound culture is being read as negative. august 07: echocardiogram report shows mild four-chamber enlargement. Left ventricular ejection fraction 50%. there is aortic root sclerosis. There is mild mitral regurgitation. -eKG from this morning shows normal sinus rhythm at a rate of 80, with frequent PVCs. August 06: -C. difficile screen is negative. -ABG on a 4.5 L O2 mask: PH 7.44 PCO2 27, PO2 70, bicarbonate 18, O2 saturation 94% -CT of the chest: Shows a small patchy left lower lobe infiltrate with small bilateral pleural effusions. Extremely heavy atherosclerotic calcification of all coronary arteries. Small pericardial effusion. 19 mm solitary stone in the gallbladder neck. 3.5 cm low attenuation lesion in the mid left kidney with an 18 mm satellite lesion in the perinephric fat. August 05: -Urine culture is negative. Urinalysis showed protein of 30 mg, 25 leukocyte esterase, negative nitrites, moderate crystals, 22 hyaline casts, 9 granular casts -blood cultures are negative . CBC: White blood cell count 23,000, hematocrit 44, platelets 196,000, granulocyte count 21,000 Lactic acid elevated at 5.0 Chemistry panel: Anion gap 17, BUN 30, creatinine 2.0 Total bilirubin high at 1.8, AST 59 CPK is elevated at 8376, total CK is 3603 Troponin normal at 0.02 Pro-calcitonin was elevated at 9.5 August 04: MRSA screen is negative. Medical - H&P: A/P - Narrative A/P Narrative: #1. Right lower extremity severe friction burn with cellulitis. -The patient is now admitted to [facility], for ongoing wound care. Dr. coffman day of wound care is also following. We will continue with daily scrubs , to remove sloughing skin, and then apply nystatin and Silvadene, per Dr. Michelle. -We are continuing with IV Zosyn and vancomycin, and can probably discontinue IV antibiotics in about 4 more days, assuming the wound is continuing to improve. -UTI and apparent pneumonia from admission have resolved. -I did see him walking in the hallway today barefoot. I strongly cautioned him against walking around barefoot anymore at all. We discussed that he really needs to protect his feet from getting any more infections. -He does have large calluses on his feet, and a cracked callus may be the source of his infection. We will have him follow-up with podiatry. Hopefully skin will start to heal more quickly, once we get some of this extra fluid off of him. He has diuresed some. He came in at 284 pounds, and got up to 295 pounds, and according to our scales is down to 281 pounds now. #2. Cardiac. -This patient has known coronary disease, and has had dyspnea . During his hospital stay, troponin was mildly positive, but echocardiogram, is reassuring. EKG does not show obvious ischemia. .We will continue with aspirin, and I did add Plavix . Atenolol was changed to Lopressor, regarding mild heart failure symptoms. Echocardiogram looks okay. -he does take meloxicam at home, and I would avoid this in this patient with known coronary disease. I discussed this with him today. #3.HTN: -Resume on olmesartan today. Analogue was changed to Toprol XL. Next line continue to monitor. #4.renal. -Acute Kidney Injury - - due to sepsis and rhabdomyolysis. Renal function appears to be at baseline now. -Check renal function and CPK again in the morning. -CT scan showed a renal mass. However, on follow-up CT IVP yesterday, no definite mass is seen. Have some retroperitoneal stranding of uncertain etiology. However no signs of renal malignancy are seen. #5.Ruben knee abrasions, right toe contusion: ruben bacitracin ointment, wound care #6.DVT hep sq #7.Full code #8. Pulmonary. -the patient has required oxygen at times, but this is improved . Hypoxemia is also likely due to significant obesity. Patient also has obstructive sleep apnea. Continue CPAP at at bedtime. #9. GI. Mildly elevated LFTs. Improving. I suspect this was due to passive liver congestion related to his volume overload. -Recheck labs in a.m. -patient has had bright red blood per rectum, as well as diarrhea. C. difficile screen was negative. He may be having some antibiotic associated diarrhea. He also has known hemorrhoids. Continue to monitor hemoglobin. He reports he had a colonoscopy about 12 years ago that was normal. -Add Imodium today. Disposition: He is encouraged to continue working with physical therapy on strengthening. Admitted to swing bed status, for continued wound care. Dr. coffman they will be following up after the weekend, and will decide if patient can be discharged home, with subsequent outpatient wound care follow-up. This visit took approximately 55 minutes today, to review patient's records and test results, interview and examine him, review plan of care with nursing, and write orders. Medical - H&P: Qual - VTE Deep Vein Thrombosis/Pulmonary Embolism Present on Admission: No
[2016-08-14] MEDS: LOPERAMIDE 2 MG CAPSULE PO PRN ×2 (14:17→16:25)
[2016-08-14] MEDS: VANCOMYCIN 1,500 MG in 0.9 % SODIUM CHLORIDE 500 ML IV SCH (16:23)
[2016-08-14] MEDS: SIMVASTATIN 20 MG TABLET PO SCH (20:00)
[2016-08-15] MEDS: PIPERACILLIN SODIUM/TAZOBACTAM 3.375 GM in DEXTROSE 5% IN WATER 50 ML IV SCH ×3 (06:26→21:51)
[2016-08-15] MEDS: 0.9 % SODIUM CHLORIDE 10 ML SYRINGE IV SCH ×3 (07:16→21:52)
[2016-08-15] MEDS: METOPROLOL SUCCINATE 50 MG TAB.XL.24H PO SCH (07:21)
[2016-08-15] MEDS: ASPIRIN 81 MG TAB.CHEW PO SCH (07:21)
[2016-08-15] MEDS: CLOPIDOGREL 75 MG TABLET PO SCH (07:21)
[2016-08-15] MEDS: GABAPENTIN 300 MG CAPSULE PO SCH ×2 (07:21→20:29)
[2016-08-15] MEDS: OLMESARTAN MEDOXOMIL 20 MG TABLET PO SCH (07:21)
[2016-08-15 07:22] LABS: Basophils # (Auto) 0 K/mcL (0.0-0.3); Basophils % (Auto) 0.2 % (0.0-2.0); Eosinophils # (Auto) 0.4 K/mcL (0.0-0.7); Eosinophils % (Auto) 3.9 % (0.0-7.0); Granulocytes % (Auto) 78.3 % (38.0-78.0); Lymphocytes # (Auto) 1.4 K/mcL (1.5-4.8); Lymphocytes % (Auto) 12.4 % (15.5-49.0); Mean Cell Volume 98.4 fL (80.0-100.0); Mean Corpuscular HGB Conc 33.6 g/dL (31.0-36.0); Mean Corpuscular Hemoglobin 33.1 pg (26.0-34.0); Monocytes # (Auto) 0.6 K/mcL (0.1-0.9); Monocytes % (Auto) 5.2 % (1.0-12.0); Platelet Count 364 K/mcL (140-440); RBC 3.39 M/mcL (4.50-5.90); Red Cell Distribution Width 13.4 % (11.5-14.5)
[2016-08-15 07:49] LABS: ALT/SGPT 41 U/l (0-40); Albumin 2.7 gm/dL (3.2-5.2); Albumin/Globulin Ratio 0.6 (1.0-2.3); Alkaline Phosphatase 92 U/L (39-117); Bilirubin,Direct < 0.2 mg/dL (0.0-0.3); Blood Urea Nitrogen 15 mg/dl (8-23); Creatine Kinase 328 IU/L (24-195); Gamma Glutamyl Transpeptidase 97 U/L (8-61); Magnesium 2.2 mg/dL (1.6-2.5)
[2016-08-15] MEDS: SILVER SULFADIAZINE CREAM.TOP 25GM TOPICAL SCH (10:56)
[2016-08-15] MEDS: ACETAMINOPHEN 325 MG TABLET PO PRN (14:40)
[2016-08-15] MEDS: VANCOMYCIN 1,500 MG in 0.9 % SODIUM CHLORIDE 500 ML IV SCH (15:09)
[2016-08-15] MEDS: SIMVASTATIN 20 MG TABLET PO SCH (20:29)
[2016-08-16] MEDS: PIPERACILLIN SODIUM/TAZOBACTAM 3.375 GM in DEXTROSE 5% IN WATER 50 ML IV SCH ×3 (05:42→21:39)
[2016-08-16] MEDS: 0.9 % SODIUM CHLORIDE 10 ML SYRINGE IV SCH ×3 (05:42→21:39)
[2016-08-16] MEDS: ACETAMINOPHEN 325 MG TABLET PO PRN ×2 (05:46→21:39)
[2016-08-16] MEDS: CLOPIDOGREL 75 MG TABLET PO SCH (09:00)
[2016-08-16] MEDS: GABAPENTIN 300 MG CAPSULE PO SCH ×2 (09:00→21:39)
[2016-08-16] MEDS: ASPIRIN 81 MG TAB.CHEW PO SCH (09:00)
[2016-08-16] MEDS: OLMESARTAN MEDOXOMIL 20 MG TABLET PO SCH (09:01)
[2016-08-16] MEDS: METOPROLOL SUCCINATE 50 MG TAB.XL.24H PO SCH (09:01)
[2016-08-16] MEDS: SILVER SULFADIAZINE CREAM.TOP 25GM TOPICAL SCH (14:00)
[2016-08-16] MEDS: VANCOMYCIN 1,500 MG in 0.9 % SODIUM CHLORIDE 500 ML IV SCH (15:59)
[2016-08-16] MEDS: SIMVASTATIN 20 MG TABLET PO SCH (21:39)
[2016-08-17] MEDS: 0.9 % SODIUM CHLORIDE 10 ML SYRINGE IV SCH ×3 (05:29→21:23)
[2016-08-17] MEDS: PIPERACILLIN SODIUM/TAZOBACTAM 3.375 GM in DEXTROSE 5% IN WATER 50 ML IV SCH ×3 (05:29→20:58)
[2016-08-17] MEDS: ASPIRIN 81 MG TAB.CHEW PO SCH (09:45)
[2016-08-17] MEDS: METOPROLOL SUCCINATE 50 MG TAB.XL.24H PO SCH (09:45)
[2016-08-17] MEDS: ACETAMINOPHEN 325 MG TABLET PO PRN ×2 (09:46→20:59)
[2016-08-17] MEDS: GABAPENTIN 300 MG CAPSULE PO SCH ×2 (09:46→20:59)
[2016-08-17] MEDS: CLOPIDOGREL 75 MG TABLET PO SCH (09:46)
[2016-08-17] MEDS: OLMESARTAN MEDOXOMIL 20 MG TABLET PO SCH (09:47)
[2016-08-17] MEDS: SILVER SULFADIAZINE CREAM.TOP 25GM TOPICAL SCH (11:05)
[2016-08-17] MEDS: VANCOMYCIN 1,500 MG in 0.9 % SODIUM CHLORIDE 500 ML IV SCH (17:26)
[2016-08-17] MEDS: SIMVASTATIN 20 MG TABLET PO SCH (20:59)
[2016-08-18] MEDS: 0.9 % SODIUM CHLORIDE 10 ML SYRINGE IV SCH ×2 (05:34→15:09)
[2016-08-18] MEDS: PIPERACILLIN SODIUM/TAZOBACTAM 3.375 GM in DEXTROSE 5% IN WATER 50 ML IV SCH (05:34)
[2016-08-18] MEDS: ASPIRIN 81 MG TAB.CHEW PO SCH (08:25)
[2016-08-18] MEDS: METOPROLOL SUCCINATE 50 MG TAB.XL.24H PO SCH (08:25)
[2016-08-18] MEDS: CLOPIDOGREL 75 MG TABLET PO SCH (08:25)
[2016-08-18] MEDS: GABAPENTIN 300 MG CAPSULE PO SCH (08:25)
[2016-08-18] MEDS: OLMESARTAN MEDOXOMIL 20 MG TABLET PO SCH (08:25)
[2016-08-18] MEDS: SILVER SULFADIAZINE CREAM.TOP 25GM TOPICAL SCH (08:59)
--- NOTE | 2016-08-18 11:50 | General Surgery Progress Note ---
Subjective Patient reports: no new complaints (Right leg and knee wounds have significantly improved. Edema has resolved. Patient is back to his base line and USOH and ADLs. ) Narrative: Note initiated : 08/18/16 at 11:39 am Service Date, if different from initiated Date: [] Patient: Sharif David 75 y/o M admitted on 08/13/16 for Cellulitis. Chief Complaint: [] Objective Temp Pulse Resp BP Pulse Ox 97.2 F 68 20 159/64 92 08/18/16 06:25 08/18/16 07:40 08/18/16 06:25 08/18/16 06:25 08/18/16 07:40 AVSS, BUCK . No acute interval changes since admission to swing bed status. L/E; RLE edema has resolved. Capillary refill , 3 seconds Pigmentation of abrasion sites anterior leg and infra patellar regions. - Additional Data Intake & Output - Last 24 hours: Intake & Output 08/16/16 08/17/16 08/18/16 08/19/16 05:59 05:59 05:59 05:59 Intake Total 1520 / 1520 1150 / 1150 1860 / 1860 290 / 290 Output Total 1925 / 1925 1999 / 1999 1500 / 1500 375 / 375 Balance -405 / -405 -850 / -850 360 / 360 -85 / -85 Weight 279 lb 277 lb 281 lb - Labs 08/15/16 05:26 08/15/16 05:26 Assessment and Plan - Narrative A/P Narrative: ASSESSMENT: I saw patient with Rodney RN and CHANDRIKA Carreon Inpatient wound care nurse Satisfactory progress from wound care point of view. OK for discharge and f/u at wound clinic in ONE week. PLAN: Discharge with instructions regarding wound care and f/u at wound center in one week. - Time Spent With Patient Total time spent is greater than 50% in coordination of care (as documented) at patient's floor/unit and/or counseling patient: 15 - 24 minutes
--- NOTE | 2016-08-18 13:40 | Discharge Summary ---
Medical - DS: Prov Patient information: Note initiated : 08/18/16 at 1:37 pm Service Date, if different from initiated Date: [] Patient: Sharif David 75 y/o M admitted on 08/13/16 for Cellulitis. Chief Complaint: [] Date of admission: 08/13/16 16:18 Discharge date: 08/18/16 Primary care physician: Olaf An Admitting clinician: Carline Aviles Discharging clinician: Gia Padilla Medical - DS: Meds - Discharge Medications Prescriptions: RX: Allopurinol [Zylopriim] 300 mg PO BID #1 tablet RX: Atenolol [Tenormin] 50 mg PO BID #60 tablet Active and Home Medications: Home Medications ATenolol 50mg bid pravastatin 40mg qhs allopurinol 300mg bid benadryl 25mg prn q4 hrs asa 325 qd meloxicam 15mg pd prn gabapentin 300mg bid olmesartan 40mg po cpap at bedtime. Medical - DS: Hosp Hospital course: Mr. David is a 75 year old Male with multiple medical issues presented to the hospital with a fall, on August 05, 2016 after which he laid on the ground for quite some time and then developed fever and chills. He presented to the emergency room with acute renal failure, acute rhabdomyolysis, sepsis with lactic acidosis, right lower extremity cellulitis. -He was treated with very large volumes of IV fluids over many days, and CPK steadily declined and his Acute renal failure has resolved. -The patient did have several days of dyspnea, and was diagnosed with volume overload and mild CHF. This responded to Lasix, and has not since recurred. He did bump troponin enzymes slightly, as well as BNP, but this was felt to be more related to demand ischemia and volume overload in the setting of acute illness. Plavix was added to his regime and his atenolol was changed to metoprolol by the pervious hospitalist. I am not sure given that type this was type 2 demand ischemia, that these changes to his home medication list was necessary. I have stopped the plavix at discharge and he will continue on his aspirin regime, I have changed his metoprolol back to atenolol as he was perviously taking at home. He has not had any other signs of cardiac compromise since he was diuresed a bit. He may benefit evaluation by a receptionist airline lounge as outpatient, I will leave this at the discretion of his PCP. The patient was treated under swing bed status to complete his antibiotics and wound care by Dr Michelle. The patient completed his antibiotics and is deemed stable for discharge by the wound care physician Lower GI bleed, few episodes of bright red blood, h/o hemorrhoids, colonoscopy 12 yrs ago, he will need repeat Colonoscopy as outpatient. For details of stay during the inpatient stay, please refer to hospital inpatient discharge summary. he will get home services for wound care and he will follow up He will follow up with his PCP and wound care for further treatment He will get home PT as he still needs therapy to improve his gait and ambulation. Discharge diagnosis: cellutlitis. Rhabdomyolysis. - Time Spent with Patient Total time spent providing and/or coordinating discharge services: Medical - DS: Exam - Constitutional Vitals: Vital Signs Temp Pulse Pulse Resp BP Pulse Ox 08/18/16 12:02 97.8 F 20 123/76 96 08/18/16 07:40 68 92 08/18/16 06:25 97.2 F 20 159/64 95 08/17/16 19:56 98.0 F 77 18 164/74 96 Intake and Output 08/17/16 08/18/16 08/18/16 21:59 05:59 13:59 Intake Total 600 / 600 300 / 300 290 / 290 Output Total 620 / 620 400 / 400 525 / 525 Balance -20 / -20 -100 / -100 -235 / -235 Intake: IV 600 / 600 50 / 50 Zosyn 3.375 gm In 100 / 100 50 / 50 Dextrose 5% in Water 50 ml @ 100 mls/hr IV Q8H TOMMY Rx#:[id number] Vancomycin 1,500 mg In 500 / 500 Sodium Chloride 0.9% 500 ml @ 333.3 mls/hr IV Q24H TOMMY Rx#:[id number] Oral 300 / 300 240 / 240 Output: Void Amount 620 / 620 400 / 400 525 / 525 Other: Meal Lunch Percent of Meal Consumed 100% # Voids 200 # Bowel Movements 1 1 1 Weight 281 lb Additional comments: Constitutional; Afebrile, cooperative, alert, not in distress. Eyes- No icterus, , No periorbital swelling Ears- Ext ear normal, hearing normal to conversation. Neck- Midline trachea, supple Respiratory system: Air Entry equal on both sides, No crackles or wheezing, no rhonchi. CVS- Rate rhythm regular, S1,S2 heard, no gallop, no rub. Abdomen- Soft nontender abdomen, no organomegaly, no tenderness, no guarding or rigidity, HOUSING DEVELOPMENT SPECIALIST- AOOx3, moving all extremities, no gross focal deficit noted. Medical - DS: A/P - Patient/Caregiver Discharge Instructions Activity: as per physical therapy, increase activity as tolerated Diet: Cardiac Additional Instructions: [facility] will be calling you within 48 hours of discharge to set up a time to come and see you. Follow up at [facility] wound care clinic in one week to see Dr Michelle. Follow up with PCP in 1 week go to the ER if fever, chills worsening leg pain or any new concerning condition. Prescriptions: RX: Allopurinol [Zylopriim] 300 mg PO BID #1 tablet RX: Atenolol [Tenormin] 50 mg PO BID #60 tablet Other Amb Orders: Wound Care Instructions Location: Determined By Patient - Follow up Plan Follow up with: Ar Michelle MD [Physician] - Olaf An DO [Primary Care Provider] - Disposition: Home Health Service Prognosis: Fair Rehab Potential: Fair I certify that the patient requires SNF services: No Overall status at discharge: patient is progressing back to baseline Medical - DS: Qual - VTE Deep Vein Thrombosis/Pulmonary Embolism Present on Admission: No
[2016-08-18] MEDS: ACETAMINOPHEN 325 MG TABLET PO PRN (14:00)
== END 2016-08-18 15:35 | disposition home health service (06) | DRG 871 ==
LOC: MEDSUR 16:18
PROVIDERS: ADMIT Internal Medicine; ATTEND Internal Medicine

== ENCOUNTER 2023-03-31 06:13 | Observation (INO) ==
[2023-03-21 14:20] LABS: Basophils # (Auto) 0.05 K/mcL (0.00-0.30); Basophils % (Auto) 0.7 % (0.0-2.0); Eosinophils % (Auto) 6.8 % (0.0-7.0); Hematocrit 39.8 % (40.1-51.0); Hemoglobin 12.6 g/dL (13.7-17.5); Lymphocytes # (Auto) 1.94 K/mcL (1.50-4.80); Lymphocytes % (Auto) 26.6 % (15.5-49.0); Mean Cell Volume 100.5 fL (80.0-100.0); Mean Corpuscular HGB Conc 31.7 g/dL (31.0-36.0); Monocytes # (Auto) 0.88 K/mcL (0.10-0.90); Monocytes % (Auto) 12.1 % (1.0-12.0); Neutrophils % (Auto) 53.7 % (38.0-78.0); Platelet Count 226 K/mcL (140-440); RBC 3.96 M/mcL (4.63-6.08); Red Cell Distribution Width 13.6 % (11.5-14.5); WBC 7.3 K/mcL (4.5-11.0)
[2023-03-21 14:44] LABS: Blood Urea Nitrogen 20 mg/dL (8-23); Calcium 9.3 mg/dL (8.6-10.4); Carbon Dioxide 22 mmol/L (22-30); Chloride 106 mmol/L (96-108); Glomerular Filtration Rate 47; Glucose 83 mg/dL (70-105)
[2023-03-31] MEDS ORDERED: KETAMINE 50 MG/ML Syringe IV ONE (07:31)
[2023-03-31] MEDS ORDERED: PROPOFOL 200 MG/20 ML VIAL IV ONE ×2 (08:00→08:20)
[2023-03-31] MEDS: BUPIVACAINE PF 0.5% 30 ML VIAL IJ ONE (08:13)
[2023-03-31] MEDS ORDERED: ROPIVACAINE HCL/PF 30 ML VIAL IJ ONE (08:17)
[2023-03-31] MEDS ORDERED: IPRATROPIUM/ALBUTEROL 3 ML AMPUL.NEB NEB PRN (08:32)
[2023-03-31] MEDS ORDERED: BENZOCAINE/MENTHOL 1 LOZENGE PO PRN (08:32)
[2023-03-31] MEDS ORDERED: MEPERIDINE 25 MG/ML VIAL IV PRN (08:32)
[2023-03-31] MEDS ORDERED: ONDANSETRON 4 MG/2 ML VIAL IV PRN (08:32)
[2023-03-31] MEDS ORDERED: ePHEDrine 50 MG/5 ML SYRINGE (ANEST) IV ONE ×2 (08:35→11:19)
[2023-03-31] MEDS: BUPIVACAINE W/EPI 0.5% 50 ML VIAL IJ ONE (11:02)
[2023-03-31] MEDS: GELATIN SPONGE,ABSORBABLE 1 EACH SPONGE TOPICAL ONE (11:17)
[2023-03-31] MEDS ORDERED: PHENYLephrine 1 MG/10 ML SYRINGE (ANEST) ONE (11:19)
[2023-03-31 12:11] LABS: Basophils # (Auto) 0.05 K/mcL (0.00-0.30); Basophils % (Auto) 0.5 % (0.0-2.0); Eosinophils # (Auto) 0.42 K/mcL (0.00-0.70); Eosinophils % (Auto) 4.6 % (0.0-7.0); Hematocrit 33.7 % (40.1-51.0); Hemoglobin 10.6 g/dL (13.7-17.5); Lymphocytes # (Auto) 2.37 K/mcL (1.50-4.80); Lymphocytes % (Auto) 25.9 % (15.5-49.0); Mean Cell Volume 101.8 fL (80.0-100.0); Mean Corpuscular HGB Conc 31.5 g/dL (31.0-36.0); Mean Platelet Volume 10.4 fL (8.8-12.5); Monocytes # (Auto) 0.71 K/mcL (0.10-0.90); Monocytes % (Auto) 7.8 % (1.0-12.0); Platelet Count 240 K/mcL (140-440); RBC 3.31 M/mcL (4.63-6.08); Red Cell Distribution Width 13.6 % (11.5-14.5); WBC 9.2 K/mcL (4.5-11.0)
[2023-03-31] MEDS: 0.9 % SODIUM CHLORIDE 10 ML SYRINGE IV SCH (15:25)
[2023-03-31] MEDS: PREGABALIN 25 MG CAPSULE PO SCH (21:09)
[2023-03-31] MEDS: SIMVASTATIN 20 MG TABLET PO SCH (21:10)
[2023-03-31] MEDS: amLODIPine 10 MG TABLET PO SCH (21:11)
[2023-04-01] MEDS: ASPIRIN 81 MG TAB.CHEW PO SCH (08:40)
[2023-04-01] MEDS: ASCORBIC ACID 500 MG TABLET PO SCH (08:41)
[2023-04-01 11:45] LABS: Basophils # (Auto) 0.06 K/mcL (0.00-0.30); Basophils % (Auto) 0.4 % (0.0-2.0); Eosinophils # (Auto) 0.14 K/mcL (0.00-0.70); Eosinophils % (Auto) 0.9 % (0.0-7.0); Hematocrit 27.3 % (40.1-51.0); Hemoglobin 8.5 g/dL (13.7-17.5); Lymphocytes # (Auto) 2.14 K/mcL (1.50-4.80); Lymphocytes % (Auto) 13.8 % (15.5-49.0); Mean Cell Volume 102.6 fL (80.0-100.0); Mean Corpuscular HGB Conc 31.1 g/dL (31.0-36.0); Mean Platelet Volume 10.3 fL (8.8-12.5); Monocytes # (Auto) 1.66 K/mcL (0.10-0.90); Monocytes % (Auto) 10.7 % (1.0-12.0); Neutrophils % (Auto) 73.9 % (38.0-78.0); Platelet Count 220 K/mcL (140-440); RBC 2.66 M/mcL (4.63-6.08); Red Cell Distribution Width 14.1 % (11.5-14.5); WBC 15.5 K/mcL (4.5-11.0)
[2023-04-01 12:38] LABS: ALT/SGPT 6 U/L (<40); AST/SGOT 16 U/L (<40); Albumin 3.3 gm/dL (3.2-5.2); Albumin/Globulin Ratio 1.3 (1.0-2.3); Alkaline Phosphatase 63 U/L (39-117); Bilirubin,Direct < 0.2 mg/dL (0-0.3); Bilirubin,Total 0.5 mg/dL (0.1-1.0); Blood Urea Nitrogen 31 mg/dL (8-23); Calcium 8.4 mg/dL (8.6-10.4); Carbon Dioxide 21 mmol/L (22-30); Chloride 106 mmol/L (96-108); Globulin 2.6 gm/dL (2.2-3.7); Glomerular Filtration Rate 27; Glucose 124 mg/dL (70-105); Lactate Dehydrogenase 127 U/L (135-225); Phosphorous 3.7 mg/dL (2.5-4.5); Triglycerides 219 mg/dL (<150); Uric Acid 10.3 mg/dL (2.5-8.0)
[2023-04-02] MEDS: HYDROcodone/APAP 5/325MG TABLET PO PRN (04:24)
[2023-04-02 07:16] VITALS: O2SAT 98
[2023-04-02 11:37] VITALS: TEMP 98.1
== END 2023-04-02 13:25 | disposition home or self-care (01) ==
LOC: MEDSUR 06:13 → SUR 06:13 → MEDSUR 14:45
PROVIDERS: ADMIT Podiatrist Foot & Ankle Surgery; ATTEND Podiatrist Foot & Ankle Surgery